=== PATIENT | female | born 1945 | race Caucasian/White ===

== ENCOUNTER 2022-05-17 09:53 | Inpatient (IN) | payer MEDICARE, SELFPAY ==
[2022-05-17] VITALS (42 sets, daily range): BP systolic 101–131; BP diastolic 40–87; PULSE 77–98; RESP 20–31; TEMP 36.2–37.5; O2SAT 88–98; BMI 39.5
--- NOTE | ~2022-05-17 | CT_ITS ---
EXAMINATION: CTA chest PE protocol DATE: 05/17/2022 14:29 INDICATION: elevated D dimer; hypoxia. r/o PE TECHNIQUE: Computed tomography angiography (CTA) of the chest was performed with 100 mL Omnipaque-350 intravenous contrast timed to evaluate the pulmonary arteries. Coronal maximum intensity projection 3D-reconstructions were created by the technologist. The dose-length product (DLP) was 791.57 mGy-cm. Automated exposure control and iterative reconstruction technique were employed. COMPARISON: X-ray chest, same date. FINDINGS: Study quality: Degraded primarily by motion but also by contrast phase and beam hardening such that s egmental emboli could be missed. Pulmonary arteries: No central embolus. Thoracic aorta: Normal. Lung parenchyma and airways: Severely motion limited. Patchy areas of groundglass and dependent subse gmental consolidation. Thoracic inlet, axillae and chest wall: Unremarkable. Mediastinum: Normal. Heart and pericardium: Mild cardiomegaly. Coronary artery calcifications: Mild. Pleura: Unremarkable. Upper abdomen: Steatosis. Bones: No acute osseous finding. IMPRESSION: Severely limited examination, such that segmental emboli could be missed. No central or saddle embolu s. Pulmonary opacities may reflect edema, atelectasis or infection, poorly visualized due to motion. Reviewed, dictated and finalized at location K. IMPRESSION: Severely limited examination, such that segmental emboli could be missed. No ce ntral or saddle embolus. Pulmonary opacities may reflect edema, atelectasis or infection, poorly visualized due to motion.
--- NOTE | ~2022-05-17 | XR_ITS ---
XR chest 1V portable 05/17/2022 10:36 Indication: Cough and hypoxia. Dyspnea. Pneumonia. Procedure: AP portable chest Comparison: 02/09/2011 Findings: Left basilar airspace disease. Cardiomegaly. No significant pleural effusion, edema or pneu mothorax. No acute osseous abnormality. Impression: 1: Left basilar airspace disease may represent atelectasis or developing pneumonia. Reviewed, dictated and finalized at location A. Impression: 1: Left basilar airspace disease may represent atelectasis or developing pneumo archana.
--- NOTE | 2022-05-17 10:26 | ECG_ITS ---
Measurements Intervals [place] Rate: 93 P: 48 HI: 157 QRS: 22 QRSD: 102 T: 49 QT: 354 QTc: 441 Interpretive Statements SINUS RHYTHM POOR R WAVE PROGRESSION, ANTERIOR LEADS MINIMAL Q WAVES- INFERIOR LEADS BORDERLINE T WAVE ABNORMALITY- INFERIOR LEADS BASELINE ARTIFACT- II, III, AVF, V3, V6 BORDERLINE ECG Electronically Signed On 05-17-2022 17:17:53 CDT by Hitesh Pak D.O.
[2022-05-17 10:48] LABS: Base Excess ABG 5.1 mmol/L (0-2); HCO3 ABG 28.6 mmol/L (23-29); Oxygen Content ABG 17.9 %vol (16.0-22.0); Oxygen Saturation ABG 91.8 % (95-97); Oxyhemoglobin 90.6 % (94-100); PCO2 ABG 38.3 mmHg (35-45); PO2 ABG 58.8 mmHg (75-85); Total Hemoglobin 14.1 g/dL (12.0-18.0); pH ABG 7.49 (7.35-7.45)
[2022-05-17] MEDS: SODIUM CHLORIDE 0.9% IV 1,000 ML 999 ML IV CONT (10:49)
[2022-05-17 10:50] LABS: Basophils Absolute Auto 0.04 K/mm3 (0.00-0.10); Basophils Percent Auto 0.3 % (0.0-1.0); Hematocrit 39.8 % (35.0-42.0); Hemoglobin 13.2 g/dL (11.7-13.8); Immature Granulocyte Absolute 0.08 K/mm3 (0.00-0.00); Immature Granulocyte Percent A 0.6 % (0.0-0.0); Lymphocytes Absolute Auto 1.12 K/mm3 (1.10-4.50); Lymphocytes Percent Auto 7.9 % (18.0-42.0); Mean Corpuscular HGB Conc 33.2 g/dL (32.0-36.0); Mean Corpuscular Hemoglobin 30.7 pg (27.0-31.0); Mean Corpuscular Volume 92.6 fL (78.0-102.0); Mean Platelet Volume 10.4 fl (9.2-11.8); Monocytes Absolute Auto 2.01 K/mm3 (0.10-0.90); Monocytes Percent Auto 14.1 % (2.0-11.0); Neutrophils Percent Auto 77.1 % (50.0-70.0); Platelet Count Result 168 K/mm3 (150-420); Red Cell Distribution Width 12.9 % (11.6-14.4); White Blood Count 14.2 K/mm3 (4.8-10.8)
[2022-05-17] MEDS: MAGNESIUM SULF 2 GM/WATER 50ML 2 GM/50 ML BAG IVPB (10:50)
[2022-05-17 10:51] LABS: Device ROOM AIR; Modified Allen's Test Pass; Site Drawn LEFT RADIAL
[2022-05-17] MEDS: ONDANSETRON INJ 4 MG/2 ML VIAL IV PUSH (10:51)
[2022-05-17] MEDS: methylPREDNISolone SOD SUCC 125 MG VIAL IV PUSH (10:51)
[2022-05-17] MEDS: IPRATROPIUM 0.5 MG/ALBUTEROL SULFATE 2.5 MG AMPUL.NEB 3 ML INHALATION (10:52)
--- NOTE | 2022-05-17 11:04 | PC.NURSE ---
ddimer 1.22 reported to erp.
[2022-05-17 11:05] LABS: D Dimer 1.22 mg/L (0.19-0.50)
[2022-05-17 11:10] LABS: Influenza Control Valid (Valid)
[2022-05-17 11:11] LABS: Lactic Acid Reflex 1.2 mmol/L (0.4-2.0)
[2022-05-17 11:13] LABS: Alanine Aminotransferase 47 U/L (14-59); Albumin Level 2.7 g/dL (3.4-5.0); Alkaline Phosphatase 87 U/L (46-116); Anion Gap 7 mmol/L (8-16); Aspartate Amino Transferase 30 U/L (15-37); Bilirubin,Total 1.1 mg/dL (0.00-1.00); Blood Urea Nitrogen 25 mg/dL (7-18); Calcium 8.9 mg/dL (8.5-10.1); Carbon Dioxide 28 mmol/L (21-32); Chloride 94 mmol/L (98-108); Estimated CRCL calculation 35 ml/min; Estimated Glomerular Filt Rate 37; Glucose 163 mg/dL (70-99); NT Pro B Type Natriuretic Pept 373 pg/mL (0-450); Osmolality Calculated 276 mOsm/kg (285-295); Potassium 3.1 mmol/L (3.5-5.1); Sodium 129 mmol/L (136-145); Total Protein 7.9 g/dL (6.4-8.2); Troponin I 12.8 ng/L (0.00-60.4)
[2022-05-17 11:13] LABS: Amylase 36 U/L (25-115); Lipase 126 U/L (73-393)
[2022-05-17 11:22] LABS: CRP > 25.0 mg/dL (0.0-0.9)
--- NOTE | 2022-05-17 11:22 | ED.GENADULT ---
HPI - General Adult General Chief complaint: Weakness Stated complaint: weakness in lower extremities, vomiting History of Present Illness HPI narrative: The patient is a 77-year-old woman smoker, who presents with generalized weakness and intermittent tremors and shaking for the last 4 days associated with nausea and vomiting: no vomiting today but 3 episodes yesterday; nausea present today. Does not feel dizzy or light headed. Also has a cough productive of phlegm that is green which is more than usual for her smoker's cough. No dyspnea. No chest pain. No abdominal pain. No diarrhea. No fevers or chills with diaphoresis or rhinorrhea or nasal congestion. Mild dyspnea present. Walks with a cane. No urinary symptoms. Comorbidities include hypertension hypothyroidism Related Data Home Medications Medication Instructions Recorded Confirmed hydrochlorothiazide 12.5 mg tablet 12.5 mg PO DAILY 05/17/22 05/17/22 levothyroxine 112 mcg tablet 112 mcg PO DAILY 05/17/22 05/17/22 losartan 100 mg tablet 100 mg PO DAILY 05/17/22 05/17/22 metformin 500 mg tablet 500 mg PO BID 05/17/22 05/17/22 Allergies Allergy/AdvReac Type Severity Reaction Status Date / Time Penicillins Allergy Mild Unknown Verified 05/17/22 10:31 Sulfa (Sulfonamide Allergy Mild Unknown Verified 05/17/22 10:31 Antibiotics) Review of Systems Review of Systems: All systems reviewed & are unremarkable except as noted in HPI and below Constitutional: Constitutional: Reports no additional constitutional complaints, Denies anorexia, Reports body ache(s), Denies chills, Denies excessive sweating, Reports fatigue, Denies fever(s), Denies frequent falls, Denies headache(s), Reports malaise and Denies poor appetite Eyes: Eyes: Reports no additional eye complaints, Denies blurry vision, Denies change in vision, Denies irritation, Denies itchy eyes and Denies photophobia ENT: Reports system reviewed and no additional complaints, except as documented, Reports Normal hearing present, Denies change in voice, Denies dysphagia, Denies vertigo, Denies dizziness, Denies ear discharge, Denies headache(s), Denies hearing loss, Denies hoarseness, Denies nasal congestion, Denies neck pain, Denies sinus pressure, Denies sore throat and Denies throat swelling Cardiovascular: Cardiovascular: Reports no additional cardiovascular complaints, Denies chest pain, Denies syncope, Denies rapid heart rate, Denies irregular heart rhythm, Denies leg edema, Denies dyspnea and Denies slow heart rate Respiratory: Respiratory: Reports no additional respiratory complaints, Reports chest congestion, Reports cough (productive of green sputum), Denies dyspnea, Denies stridor and Reports wheezing Gastrointestinal: Gastrointestinal: Reports no additional gastrointestinal complaints, Denies abdominal pain, Denies melena, Denies hematochezia, Denies dysphagia, Denies diarrhea, Reports nausea and Reports vomiting Genitourinary: Genitourinary: Denies hematuria, Denies urinary frequency, Denies dysuria, Denies flank pain and Denies urinary urgency Musculoskeletal: Musculoskeletal: Reports no additional musculoskeletal complaints, Denies abnormal gait, Denies back pain, Denies myalgias, Denies arthralgias, Denies joint swelling, Denies limited range of motion, Denies muscle cramps, Denies muscle weakness, Denies neck pain and Denies numbness Integumentary/Breasts: Skin/Breast: Reports system reviewed and no additional complaints, except as docu, Denies breast pain, Denies change in pigmentation, Denies pruritus, Denies erythema and Denies wounds Neurologic: Reports system reviewed and no additional complaints, except as documented, Reports Normal hearing present, Denies Abnormal speech present, Denies abnormal gait, Denies confusion, Denies vertigo, Denies dizziness, Denies syncope, Denies frequent falls, Denies headache(s), Denies focal weakness, Denies numbness and Denies paresthesias Psychiatric: Psychiatric: Rep
[2022-05-17 11:32] LABS: SARS-CoV-2 RNA PCR Negative (Negative)
[2022-05-17 11:55] LABS: Erythrocyte Sedimentation Rate 44 mm/hr (0-20)
[2022-05-17 17:44] LABS: Glucose Point of Care 286 mg/dl (65-105)
--- NOTE | 2022-05-17 18:00 | ADMGEN ---
This patient, Julisa Rocha, was admitted to 2nd Floor Room 204-2. Patient/family oriented to hospital policies and general routines including ID bracelet, bed and alarms, visiting hours, pain management, procedures, bathroom and other care routines, personal items, smoking policy, room service/diet, and visiting hours. Information on how to activate the Rapid Response Team has been discussed. Patient/Family are encouraged to report perceived risks to care and to ask questions if they do not understand what they are told or what they should do.
[2022-05-17] MEDS: methylPREDNISolone SOD SUCC 125 MG VIAL 60 MG IV PUSH (19:22)
[2022-05-17 21:42] LABS: Glucose Point of Care 217 mg/dl (65-105)
[2022-05-18] VITALS (7 sets, daily range): BP systolic 94–113; BP diastolic 36–52; PULSE 58–75; RESP 16–20; TEMP 35.9–37; O2SAT 91–95
[2022-05-18 05:41] LABS: Anion Gap 9 mmol/L (8-16); Blood Urea Nitrogen 31 mg/dL (7-18); Carbon Dioxide 27 mmol/L (21-32); Chloride 98 mmol/L (98-108); Estimated CRCL calculation 38 ml/min; Estimated Glomerular Filt Rate 39; Glucose 167 mg/dL (70-99); Osmolality Calculated 288 mOsm/kg (285-295); Potassium 3.6 mmol/L (3.5-5.1); Sodium 134 mmol/L (136-145)
[2022-05-18] MEDS: LEVOTHYROXINE SODIUM 112 MCG TABLET PO (06:11)
[2022-05-18] MEDS: methylPREDNISolone SOD SUCC 125 MG VIAL 60 MG IV PUSH ×2 (06:11→18:17)
[2022-05-18] MEDS: BENZONATATE 100 MG CAPSULE PO ×3 (06:12→19:49)
[2022-05-18 08:00] LABS: Glucose Point of Care 131 mg/dl (65-105)
[2022-05-18] MEDS: NICOTINE (*PBKC) 21 MG PATCH 1 PATCH TRANSDERM (08:24)
--- NOTE | 2022-05-18 10:16 | PM.IMHP ---
H&P: HPI History of Present Illness Date/Time: 05/18/22 10:16 Chief Complaint: This is 77-year-old female that presented to the emergency room with weakness and vomiting that is been going on for the past 24 to 48 hours. Patient complains that she was coughing and she vomited while coughing and her legs are so heavy and weak. Patient in the emergency room was found to have some pneumonia was getting IV antibiotics, IV steroids and breathing treatment. Patient was admitted to the floor will be continued IV steroids and antibiotics she remained on 2 L of oxygen which is her home dosage. Patient has continued to improve and is doing a lot better. According to Ms. Rocha she smokes a pack a day as well as she does not check her blood sugars but its maintain with oral medication. Patient denies any nausea and/or vomiting states that she is ready to go home patient has a past medical history of hypertension, diabetes obesity, smoker. At this time we will keep patient another days where she can continue with IV steroids medication for cough IV antibiotics and oxygen she will see physical therapy in the morning to ensure that she is safe for labs are trending down which is showing a lot of improvement. Today potassium is 3.6, sodium 134, chloride 98, BUN 31, creatinine 1.31 which is down from 1.45, WBCs of 14.2, hemoglobin is 13.2 platelets of 168. Review of Systems Review of Systems: Weakness,vomiting, cough All systems reviewed & are unremarkable except as noted in HPI and below PMFSH Family History Family History Sibling Diabetes mellitus Social History Social History Smoking packs per day: 1 Smoking cigarettes per day: 20.0 Smoking status: Heavy tobacco smoker Tobacco type: cigarettes Second hand tobacco smoke exposure: Yes Alcohol intake: never Substance use: never Substance use type: does not use Spiritual care concerns: No Comments At time as signature, I have reviewed and agree with nursing past medical, social, surgical and family history. Please see nursing chart for further information. There is no relevant family history pertinent to the presenting complaint. Meds Home Medications and Allergies Home Medications Medication Instructions Recorded Confirmed Type hydrochlorothiazide 12.5 mg tablet 12.5 mg PO DAILY 05/17/22 05/17/22 History levothyroxine 112 mcg tablet 112 mcg PO DAILY 05/17/22 05/17/22 History losartan 100 mg tablet 100 mg PO DAILY 05/17/22 05/17/22 History metformin 500 mg tablet 500 mg PO BID 05/17/22 05/17/22 History Allergies Allergy/AdvReac Type Severity Reaction Status Date / Time Penicillins Allergy Mild Unknown Verified 05/17/22 10:31 Sulfa (Sulfonamide Allergy Mild Unknown Verified 05/17/22 10:31 Antibiotics) Vital Signs Vital Signs - 24 hr 05/17/22 10:23 05/17/22 10:35 05/17/22 10:55 Temperature 99.5 F Pulse Rate 93 93 98 Respiratory Rate 20 31 H Blood Pressure 131/58 L Pulse Oximetry 92 96 Oxygen Delivery Room Air Oxygen Flow Rate 05/17/22 11:04 05/17/22 11:30 05/17/22 10:35 Temperature Pulse Rate 89 91 93 Respiratory Rate 29 H 20 20 Blood Pressure Pulse Oximetry 97 88 L 90 Oxygen Delivery Nasal Cannula Oxygen Flow Rate 2 05/17/22 10:45 05/17/22 10:50 05/17/22 11:00 Temperature Pulse Rate 93 95 90 Respiratory Rate 20 20 20 Blood Pressure 103/72 Pulse Oximetry 93 95 Oxygen Delivery Oxygen Flow Rate 05/17/22 11:01 05/17/22 11:03 05/17/22 11:15 Temperature Pulse Rate 87 88 91 Respiratory Rate 20 20 20 Blood Pressure 122/63 119/56 L Pulse Oximetry 98 97 89 L Oxygen Delivery Oxygen Flow Rate 05/17/22 11:16 05/17/22 11:30 05/17/22 11:31 Temperature Pulse Rate 91 88 90 Respiratory Rate 20 20 20 Blood Pressure 115/71 127/87 Pulse Oximetry 88 L 88 L 91 Oxygen Delivery
[2022-05-18 11:33] LABS: Glucose Point of Care 225 mg/dl (65-105)
[2022-05-18 12:11] LABS: Add Urine Microscopic? YES; Bilirubin Urine Negative (Negative); Blood Urine 2+ (Negative); Color Urine Yellow (Yellow); Glucose Urine UA Negative (Negative); Ketones Urine Negative (Negative); Leukocyte Esterase Ur 2+ LEU/UL (Negative); Nitrate Urine Negative (Negative); Protein Urine Trace (Negative); Specific Grav Ur 1.015 (1.010-1.020)
[2022-05-18 12:19] LABS: Appearance Urine Cloudy (Clear); Bacteria Urine 2+ /hpf; Squamous Epithelial Cell Urine Few /hpf (Few)
[2022-05-18 16:38] LABS: Glucose Point of Care 175 mg/dl (65-105)
[2022-05-18] MEDS: IPRATROPIUM 0.5 MG/ALBUTEROL SULFATE 2.5 MG AMPUL.NEB 3 ML INHALATION (18:28)
[2022-05-18 21:29] LABS: Glucose Point of Care 189 mg/dl (65-105)
[2022-05-19] MEDS: IPRATROPIUM 0.5 MG/ALBUTEROL SULFATE 2.5 MG AMPUL.NEB 3 ML INHALATION ×2 (00:13→06:22)
[2022-05-19] MEDS: methylPREDNISolone SOD SUCC 125 MG VIAL 60 MG IV PUSH (05:32)
[2022-05-19] MEDS: LEVOTHYROXINE SODIUM 112 MCG TABLET PO (05:32)
[2022-05-19 05:43] LABS: Hematocrit 38.8 % (35.0-42.0); Hemoglobin 12.6 g/dL (11.7-13.8); Mean Corpuscular HGB Conc 32.5 g/dL (32.0-36.0); Mean Corpuscular Hemoglobin 30.5 pg (27.0-31.0); Mean Corpuscular Volume 93.9 fL (78.0-102.0); Mean Platelet Volume 10.6 fl (9.2-11.8); Platelet Count Result 221 K/mm3 (150-420); Red Blood Count 4.13 M/mm3 (4.20-5.40); Red Cell Distribution Width 12.6 % (11.6-14.4); White Blood Count 15.1 K/mm3 (4.8-10.8)
[2022-05-19 05:47] LABS: Anion Gap 5 mmol/L (8-16); Blood Urea Nitrogen 42 mg/dL (7-18); Calcium 8.9 mg/dL (8.5-10.1); Carbon Dioxide 31 mmol/L (21-32); Chloride 99 mmol/L (98-108); Estimated CRCL calculation 41 ml/min; Estimated Glomerular Filt Rate 43; Glucose 174 mg/dL (70-99); Osmolality Calculated 294 mOsm/kg (285-295); Potassium 3.7 mmol/L (3.5-5.1); Sodium 135 mmol/L (136-145)
[2022-05-19 06:23] VITALS: PULSE 60; RESP 16; O2SAT 93
[2022-05-19 06:31] VITALS: PULSE 65; RESP 16
[2022-05-19 08:00] VITALS: BP 102/56; PULSE 76; RESP 16; TEMP 36.2; O2SAT 92
[2022-05-19] MEDS: hydroCHLOROthiazide 12.5 MG CAPSULE PO (08:47)
[2022-05-19] MEDS: LOSARTAN POTASSIUM 50 MG TABLET 100 MG PO (08:47)
--- NOTE | 2022-05-19 09:35 | PM.DS ---
DS: Admitting Diagnosis Discharge Date 05/19/2022 Admitting Diagnosis Pneumonia, Weakness, congestive heart failure DS: Discharge Diagnosis Discharge Diagnosis (1) Acute exacerbation of chronic obstructive pulmonary disease (COPD): Code(s): J44.1 - Chronic obstructive pulmonary disease with (acute) exacerbation Status: Acute Assessment and Plan: continue with oxygen at home nebulizer order take as directed smoking cessation oral steroids as directed (2) Pneumonia of both lower lobes: Code(s): J18.9 - Pneumonia, unspecified organism Status: Acute Assessment and Plan: oral antibiotics avoid smoking (3) Weakness generalized: Code(s): R53.1 - Weakness Status: Acute Assessment and Plan: improved (4) Hypokalemia: Code(s): E87.6 - Hypokalemia Status: Acute Assessment and Plan: resolved (5) Hyponatremia: Code(s): E87.1 - Hypo-osmolality and hyponatremia Status: Acute Assessment and Plan: improving continue to drink fluids DS: Summary Hospital Course Reason for hospitalization: CoPd, Weakness, Nausea, Vomiting Hospital Course: This is a 77 year old female that presented to the emergency room with nausea and vomiting and weakness with COPD Exacerbation. Patient is on 2l of oxygen in which it is her home dosage patient does not have a nebulizer at home although she does smoke on a daily basis. Patient states that she had have coughing spells she was treated here with IV antibiotic, Steroids, continued oxygen and nebulizer treatments . Patient labs continued to improve and she has had less coughing spell possibly due to no smoking for the past 24 hours. Patient has been ordered a nebulizer for home and instruction giving on smoking cessation patient states she will try although she is not sure that she will be able to quit. Cough mediation has been ordered for home as well. Appointment has been made for her PCP where she will follow up Time Spent with Patient Time attestation: Total time spent providing and/or coordinating discharge services: Exam Narrative: GENERAL:Well-appearing, well-nourished, and in no acute distress. HEAD:Normocephalic, atraumatic. EYES: PERRLA and EOMI. ENT: Nares clear, no rhinorrhea or epistaxis. Mucous membranes moist. NECK: Supple. CHEST: Coarse with scattered wheezes to diminished in lower lobes auscultation. No respiratory distress. HEART: Regular rate and rhythm. Normal peripheral pulses. ABDOMEN: Soft, nontender, nondistended, normal active bowel sounds. EXTREMITIES: Normal range of motion. No edema. Peripheral vascular disease SKIN: Warm, dry, no rash. NEURO: No focal deficits. Alert and oriented x3. DS: Data Data Completed and Pending Labs on day of discharge: Labs from last 24 hours 05/19/22 05/19/22 05/18/22 05:30 05:30 21:23 WBC 15.1 H RBC 4.13 L Hgb 12.6 Hct 38.8 MCV 93.9 MCH 30.5 MCHC 32.5 RDW 12.6 Plt Count 221 MPV 10.6 Sodium 135 L Potassium 3.7 Chloride 99 Carbon Dioxide 31 Anion Gap 5 L BUN 42 H Creatinine 1.22 H Estim Creat Clear Calc 41 Estimated GFR 43 L Glucose 174 H POC Capillary Glucose 189 H Calculated Osmolality 294 Calcium 8.9 Urine Color Urine Appearance Urine pH Ur Specific [place] Urine Protein Urine Glucose (UA) Urine Ketones Ur Blood (Man) Urine Nitrate Urine Bilirubin Urine Urobilinogen Leukocyte Esterase Rfl Urine RBC Urine WBC Ur Squamous Epith Cells Urine Bacteria Granular Casts 05/18/22 05/18/22 05/17/22 16:35 11:28 10:27 WBC RBC Hgb Hct MCV MCH MCHC RDW Plt Count MPV Sodium Potassium Chloride Carbon Dioxide Anion Gap BUN Creatinine Estim Creat Clear Calc Estimated GFR Glucose POC Capillary Glucose 175 H 225
[2022-05-19] MEDS: BENZONATATE 100 MG CAPSULE PO (10:16)
--- NOTE | 2022-05-19 10:21 | PC.NURSE ---
Discharge instructions given to daughter and patient. Reminded that if Medicare does not cover cost of neb machine they are available at [facility] . darlene ochoal given.
--- NOTE | 2022-05-19 11:12 | PC.NURSE ---
Patient taken to private car via wheelchair. discharge instructions given.
[2022-05-19 11:44] LABS: Glucose Point of Care 165 mg/dl (65-105)
--- NOTE | 2022-05-22 10:26 | PC.NURSE ---
Unable to contact for discharge call back.
== END 2022-05-19 10:50 | disposition home or self-care (01) | DRG 190 ==
LOC: CHSED 16:25 → CHS2ND 16:47
PROVIDERS: Nurse Practitioner Family; Admitting Provider Internal Medicine; Emergency Provider Emergency Medicine; PCP Family Medicine; Visit Provider Internal Medicine
DX: J44.0 Chronic obstructive pulmonary disease with (acute) lower respiratory infection (principal); J18.9 Pneumonia, unspecified organism; E87.1 Hypo-osmolality and hyponatremia; Z20.822 Contact with and (suspected) exposure to COVID-19; J44.1 Chronic obstructive pulmonary disease with (acute) exacerbation; E87.6 Hypokalemia; I10 Essential (primary) hypertension; E11.9 Type 2 diabetes mellitus without complications; F17.210 Nicotine dependence, cigarettes, uncomplicated; Z99.81 Dependence on supplemental oxygen; E03.9 Hypothyroidism, unspecified
CPT/HCPCS: 36415; 36600; 71045; 71275; 80048; 80053; 81001; 82150; 82805; 82948; 83605; 83690; 83880; 84484; 85025; 85027; 85380; 85652; 86140; 87040; 87086; 87804; 93005; 94640; 96361; 96365; 96367; 96368; 96375; 99285; A9270; C9803; J0456; J0696; J1815; J2405; J2930; J3475; J7030; Q9967; U0003; U0005

== ENCOUNTER 2025-01-03 08:50 | Emergency (ER) | payer MEDICARE, SELFPAY ==
--- NOTE | ~2025-01-03 | XR_ITS ---
EXAMINATION: XR chest 1V portable DATE: 01/03/2025 09:33 INDICATION: Hypoxia. TECHNIQUE: A single frontal view of the chest was obtained. COMPARISON: Chest single view 05/17/2022, chest CT 05/17/2022 FINDINGS: Sensitivity is decreased by obesity. There are airspace opacities at left lung base. No ple ural effusion or pneumothorax. The heart size is normal. There are prominent pericardial fat pads. IMPRESSION: 1. Airspace opacities at left lung base, consistent with atelectasis versus pneumonia. Reviewed, dictated and finalized at location B. IMPRESSION: 1. Airspace opacities at left lung base, consistent with atelectasis versus pne umonia.
[2025-01-03 08:50] VITALS: BP 120/53; PULSE 75; RESP 22; TEMP 39.1; O2SAT 94; O2SAT 97
--- NOTE | 2025-01-03 09:03 | ED_ITS ---
HPI - General Adult General Chief complaint: Altered Mental Status Stated complaint: SICK CASE Time Seen by Provider: 01/03/25 09:03 Source: family and EMS Mode of arrival: EMS Limitations: altered mental status History of Present Illness HPI narrative: 79 years old white female came from home by ambulance with decreased level of consciousness started last night Associated with nausea. Patient report cold- like symptoms over the last 3 days. She denies any trauma. History of diabetes, hypertension, tobacco dependent. Patient lot on anti-platelet or anticoagulant medications. Does not take oxygen at home. Patient is full code. Related Data Home Medications ?Medication ?Instructions ?Recorded ?Confirmed ?Last Taken ?Type hydrochlorothiazide 12.5 mg tablet 12.5 mg PO DAILY 05/17/22 05/17/22 Unknown History levothyroxine 112 mcg tablet 112 mcg PO DAILY 05/17/22 05/17/22 Unknown History losartan 100 mg tablet 100 mg PO DAILY 05/17/22 05/17/22 Unknown History metformin 500 mg tablet 500 mg PO BID 05/17/22 05/17/22 Unknown History Allergies Allergy/AdvReac Type Severity Reaction Status Date / Time Penicillins Allergy Mild Unknown Verified 01/03/25 09:34 Sulfa (Sulfonamide Allergy Mild Unknown Verified 01/03/25 09:34 Antibiotics) Review of Systems 2 Review of Systems: ROS unobtainable: Yes unobtainable due to medical condition PMFSH Family History Family History Sibling Diabetes mellitus Social History Social History Smoking packs per day: 1 Smoking cigarettes per day: 20.0 Smoking status: Heavy tobacco smoker Tobacco type: cigarettes Second hand tobacco smoke exposure: Yes Alcohol intake: never Substance use: never Substance use type: does not use Spiritual care concerns: No Exam 2 Narrative: General appearance: Well-developed, well-nourished , responsible to touch Skin: pale Head: Normocephalic, nontraumatic Eyes: Clear conjunctiva ENT: abdoulaye pharyngeal erythema Neck: Supple, nontender Chest and respiratory: Airway patent, diminution of air entry bilaterally, patient does not take deep breath, difficult to evaluate breath sounds Heart: Regular rate/rhythm Abdomen: Soft, nontender, no organomegaly, quiet bowel sounds Neurologic: Alert and oriented her name and age only Course Consultations Consultation #1: DR PANIAGUA WHO ACCEPTED PATIENT TRANSFER Date: 01/03/25 Vital Signs Vital signs: Vital Signs Temperature 39.1 C H 01/03/25 08:50 Pulse Rate 75 01/03/25 08:50 Respiratory Rate 22 H 01/03/25 08:50 Blood Pressure 120/53 L 01/03/25 08:50 Pulse Oximetry 94 01/03/25 08:50 Oxygen Delivery Non-Rebreather Mask 01/03/25 08:50 Oxygen Flow Rate 15 01/03/25 08:50 Temperature 37.7 C H 01/03/25 09:40 Pulse Rate 73 01/03/25 09:40 Respiratory Rate 20 01/03/25 09:40 Blood Pressure 130/62 01/03/25 09:40 Pulse Oximetry 95 01/03/25 09:40 Oxygen Delivery Non-Rebreather Mask 01/03/25 09:40 Oxygen Flow Rate 15 01/03/25 09:40 Medical Decision Making MDM Narrative Medical decision making narrative: patient came to the ED with shortness of breath, hypoxic, 95% on 100% non- rebreather , responsive to touch Differential diagnosis and include sepsis with normal blood pressure, pneumonia, respiratory viral infection, less likely pulmonary embolism. Labs include CBC, CMP, lactic acid, CRP, blood culture, PT PTT And D-dimer ordered Respiratory panel for COVID, flu and RSV ordered Chest x-ray ordered CT head without contrast ordered patient had normal saline wide open time 1 L, 15 mg of Toradol IV, One set of blood culture was obtained Unable to start antibiotic right away, chest x-ray showed atelectasis versus pneumonia left lung base Differential Diagnosis Differential Diagnosis: as above Vital Signs Vital Signs: Vital Signs Temperature 39.1 C H 01/03/25 08:50 Pulse Rate 75 01/03/25 08:50 Respiratory Rate 22 H 01/03/25 08:50 Blood Pressure 120/53 L 01/03/25 08:50 Pulse Oximetry 94 01/03/25 08:50 Oxygen Delivery Non-Rebreather Mask 01/03/25 08:50 Oxygen Flow Rate 15 01/03/25 08:50 Temperature 37.7 C H 01/03/25 09:40 Pulse Rate 73 01/03/25 09:40 Respiratory Rate 20 01/03/25 09:40 Blood Pressure 130/62 03/11/25 09:40 Pulse Oximetry 95 01/03/25 09:40 Oxygen Delivery Non-Rebreather Mask 01/03/25 09:40 Oxygen Flow Rate 15 01/03/25 09:40 Lab Data 01/03/25 09:42 01/03/25 09:42 Labs: Lab Results 01/03/25 01/03/25 Range/Units 09:42 09:43 WBC 6.9 (4.8-10.8) K/mm3 RBC 4.24 (4.20-5.40) M/mm3 Hgb 13.2 (11.7-13.8) g/dL Hct 43.0 H (35.0-42.0) % MCV 101.4 (78.0-102.0) fL MCH 31.1 H (27.0-31.0) pg MCHC 30.7 L (32-36) g/dL RDW 13.9 (11.6-14.4) % Plt Count 130 L (150-420) K/mm3 MPV 10.0 (9.2-11.8) fl Immature Gran % (Auto) Not Reportable Neut % (Auto) Not Reportable Lymph % (Auto) Not Reportable Jay % (Auto) Not Reportable Eos % (Auto) Not Reportable Baso % (Auto) Not Reportable Lymph # (Auto) Not Reportable Jay # (Auto) Not Reportable Eos # (Auto) Not Reportable Baso # (Auto) Not Reportable Abs Immat Gran (auto) Not Reportable Absolute Neuts (auto) Not Reportable Absolute Nucleated RBC Not Reportable Total Counted 100 Neutrophils % (Manual) 79 H (46-73) % Band Neutrophils % 14 H (0-6) % Lymphocytes % (Manual) 5 L (18-44) % Monocytes % (Manual) 2 L (3-9) % Eosinophils % (Manual) 0 L (1-6) % Basophils % (Manual) 0 (0-1) % Nucleated RBC % Not Reportable Abs Neuts (Manual) 6.41 (1.7-7.2) K/mm3 Abs Lymphs (Manual) 0.34 L (1.1-4.5) K/mm3 Abs Monocytes (Manual) 0.13 (0.1-0.90) K/mm3 Absolute Eos (Manual) 0.00 L (0.02-0.50) K/mm3 Abs Basophils (Manual) 0.00 (0-0.1) K/mm3 Platelet Estimate Adequate (Adequate) % Immature Plt Fraction 1.4 (1.0-7.0) % Schistocytes Not Reportable PT 13.6 H (9.50-12.1) Seconds INR 1.3 APTT 27.3 (23.9-30.70) Sec D-Dimer 1.31 H* (0.19-0.50) mg/L Sodium 135 L (136-145) mmol/L Potassium 3.7 (3.5-5.1) mmol/L Chloride 97 L (98-108) mmol/L Carbon Dioxide 31 (21-32) mmol/L Anion Gap 7 (4-12) mmol/L BUN 18 (7-18) mg/dL Creatinine 1.04 H (0.55-1.02) mg/dL Estim Creat Clear Calc Not Reportable Estimated GFR 51 L (59 - ) Glucose 193 H (70-99) mg/dL Calculated Osmolality 286 (285-295) mOsm/kg Lactic Acid Pending Calcium 8.8 (8.5-10.1) mg/dL Total Bilirubin 0.7 (0.00-1.00) mg/dL AST 33 (15-37) U/L ALT 21 (14-59) U/L Alkaline Phosphatase 74 (46-116) U/L Troponin I 4.9 (0.00-60.4) ng/L C-Reactive Protein 5.2 H (0.0-0.9) mg/dL Total Protein 8.8 H (6.4-8.2) g/dL Albumin 3.2 L (3.4-5.0) g/dL Influenza A (RT-PCR) Pending Influenza B (RT-PCR) Pending RSV (RT-PCR) Pending SARS-CoV-2 RNA (RT-PCR) Pending ABG Data ABG results: 01/03/25 09:42 Puncture Site Left radial ABG pH 7.29 L ABG pCO2 73.3 H* ABG pO2 85.5 H ABG HCO3 34.2 H ABG O2 Saturation 94.5 L ABG Base Excess 5.2 H Oxyhemoglobin 92.4 L O2 Delivery Device Non-rebreather mask O2 Liters/Min 15.0 Discharge Plan Discharge Clinical Impression: Acute hypoxic respiratory failure, Decreased responsiveness Patient Disposition: Acute Care Hospital Condition: Guarded Prognosis Additional Instructions: TRANSFER TO [facility] Patient Language: Romansh Prescriptions: No Action metformin 500 mg tablet 500 mg PO BID losartan 100 mg tablet 100 mg PO DAILY levothyroxine 112 mcg tablet 112 mcg PO DAILY hydrochlorothiazide 12.5 mg tablet 12.5 mg PO DAILY ipratropium-albuterol 0.5 mg-3 mg(2.5 mg base)/3 mL Solution For Nebulization 3 ml inhalation Q6HRT PRN (Reason: Shortness Of Breath Or Wheezing) Qty: 180 0RF Rx Instructions: J44.9 benzonatate 100 mg Capsule 100 mg PO TID PRN (Reason: cough) Qty: 30 0RF (DME) nebulizer and compressor Device See Rx Instructions .Route Qty: 1 0RF Rx Instructions: As directed methylprednisolone [Medrol (Chente)] 4 mg tablets,dose pack See Rx Instructions .ROUTE .COMPLEX Qty: 21 0RF Rx Instructions: orally per package directions Follow-up/Referrals: UNKNOWN,DOCTOR [Non-Staff] -
--- NOTE | 2025-01-03 09:05 | ECG_ITS ---
Test Date: 2025-01-03 09:22:01 Measurements Intervals [place] Rate: 79 P: 62 MN: 180 QRS: 32 QRSD: 113 T: 109 QT: 391 QTc: 449 Interpretive Statements SINUS RHYTHM WITH SINUS ARRHYTHMIA LOW QRS VOLTAGE IN EXTREMITY LEADS [QRS DEFLECTION < 0.5 mV IN LIMB LEADS] MODERATE INTRAVENTRICULAR CONDUCTION DELAY [110+ ms QRS DURATION] No previous ECG available for comparison Electronically Signed On 01-03-2025 14:28:22 CDT by Emma Hallman M.D.
[2025-01-03 09:15] VITALS: BP 114/51; PULSE 77; RESP 20; O2SAT 96
[2025-01-03] MEDS: KETOROLAC 15 MG/ML VIAL (*BKC) IV PUSH (09:22)
[2025-01-03] MEDS: SODIUM CHLORIDE 0.9% IV 1,000 ML 999 ML IV CONT (09:22)
[2025-01-03 09:30] VITALS: BP 118/49; PULSE 81; RESP 20; O2SAT 97
[2025-01-03 09:40] VITALS: BP 130/62; PULSE 73; RESP 20; TEMP 37.7; O2SAT 95
[2025-01-03 09:47] LABS: Base Excess ABG 5.2 mmol/L (0-2); HCO3 ABG 34.2 mmol/L (23-29); Oxygen Saturation ABG 94.5 % (95-97); Oxyhemoglobin 92.4 % (94-100); PO2 ABG 85.5 mmHg (75-85); pH ABG 7.29 (7.35-7.45)
[2025-01-03 09:50] LABS: Device NON-REBREATHER MASK; Modified Allen's Test Pass; PCO2 ABG 73.3 mmHg (35-45); Site Drawn LEFT RADIAL
[2025-01-03 09:52] LABS: Hemoglobin 13.2 g/dL (11.7-13.8); Immature Platelet Fraction Pct 1.4 % (1.0-7.0); Mean Corpuscular HGB Conc 30.7 g/dL (32-36); Mean Corpuscular Hemoglobin 31.1 pg (27.0-31.0); Mean Corpuscular Volume 101.4 fL (78.0-102.0); Platelet Count Result 130 K/mm3 (150-420); Red Blood Count 4.24 M/mm3 (4.20-5.40); Red Cell Distribution Width 13.9 % (11.6-14.4); White Blood Count 6.9 K/mm3 (4.8-10.8)
[2025-01-03 10:04] LABS: INR 1.3; Partial Thromboplastin Time 27.3 Sec (23.9-30.70); Prothrombin Time 13.6 Seconds (9.50-12.1)
[2025-01-03 10:06] LABS: D Dimer 1.31 mg/L (0.19-0.50)
[2025-01-03 10:13] LABS: Alanine Aminotransferase 21 U/L (14-59); Albumin Level 3.2 g/dL (3.4-5.0); Alkaline Phosphatase 74 U/L (46-116); Anion Gap 7 mmol/L (4-12); Aspartate Amino Transferase 33 U/L (15-37); Bilirubin,Total 0.7 mg/dL (0.00-1.00); Blood Urea Nitrogen 18 mg/dL (7-18); CRP 5.2 mg/dL (0.0-0.9); Calcium 8.8 mg/dL (8.5-10.1); Carbon Dioxide 31 mmol/L (21-32); Chloride 97 mmol/L (98-108); Estimated Glomerular Filt Rate 51; Glucose 193 mg/dL (70-99); Osmolality Calculated 286 mOsm/kg (285-295); Potassium 3.7 mmol/L (3.5-5.1); Sodium 135 mmol/L (136-145); Total Protein 8.8 g/dL (6.4-8.2); Troponin I 4.9 ng/L (0.00-60.4)
[2025-01-03 10:14] LABS: Band Neutrophils Percent 14 % (0-6); Basophils Percent Manual 0 % (0-1); Eosinophils Percent Manual 0 % (1-6); Lymphocytes Absolute Manual 0.34 K/mm3 (1.1-4.5); Lymphocytes Percent Manual 5 % (18-44); Monocytes Absolute Manual 0.13 K/mm3 (0.1-0.90); Monocytes Percent Manual 2 % (3-9); Neutrophils Absolute Manual 6.41 K/mm3 (1.7-7.2); Neutrophils Percent Manual 79 % (46-73); Platelet Estimate Adequate (Adequate); Total Cells Counted 100
[2025-01-03 10:26] LABS: Lactic Acid Reflex 1.8 mmol/L (0.4-2.0)
[2025-01-03 10:28] LABS: Influenza A QL RT-PCR Positive (Negative); Influenza B QL RT-PCR Negative (Negative); RSV RNA, RT-PCR Negative (Negative); SARS-CoV-2 RNA PCR Negative (Negative)
--- NOTE | 2025-01-04 13:46 | PC.NURSE ---
PRELIMINARY BLOOD CULTURE RESULTS X2: NO GROWTH TO DATE.
== END 2025-01-03 09:40 | disposition short-term general hospital (02) ==
PROVIDERS: Emergency Provider Emergency Medicine; PCP Family Medicine
DX: J96.01 Acute respiratory failure with hypoxia (principal); R41.82 Altered mental status, unspecified; E11.9 Type 2 diabetes mellitus without complications; I10 Essential (primary) hypertension; F17.210 Nicotine dependence, cigarettes, uncomplicated; Z79.01 Long term (current) use of anticoagulants; Z99.81 Dependence on supplemental oxygen; Z20.822 Contact with and (suspected) exposure to COVID-19
CPT/HCPCS: 36415; 36600; 71045; 80053; 82805; 83605; 84484; 85025; 85055; 85380; 85610; 85730; 86140; 87040; 87637; 93005; 96361; 96374; 99285; J1885; J7030

== ENCOUNTER 2025-01-03 10:19 | Inpatient (IN) | payer MEDICARE, SELFPAY ==
[2025-01-03] VITALS (70 sets, daily range): BP systolic 76–135; BP diastolic 37–64; PULSE 50–90; RESP 10–28; TEMP 36.6–37.4; O2SAT 88–100; BMI 41.0
--- NOTE | ~2025-01-03 | XR_ITS ---
Portable chest x-ray Comparison: 01/06/2025 Clinical History: Respiratory failure Findings: Left subclavian line unchanged. Small left pleural effusion present with probable partial left lower lobe atelectasis. There is probable mild pulmonary edema pattern bilaterally. Cardiomedia stinal silhouette is stable. Bones and soft tissues are unremarkable. Impression: Small left pleural effusion with mild pulmonary edema and probable element of left lower lobe atelect asis. Possible underlying COPD/chronic interstitial disease. Stable support line. Reviewed, dictated and finalized at location M. Impression: Small left pleural effusion with mild pulmonary edema and probable element of l eft lower lobe atelectasis. Possible underlying COPD/chronic interstitial disease. Stable support line.
--- NOTE | ~2025-01-03 | CT_ITS ---
History: Altered mental status PROCEDURE: CT head without contrast. COMPARISON: 02/09/2011 TECHNIQUE: Axial imaging of the head performed from the skull base to the vertex without IV contrast. Sagittal a nd coronal reformations obtained. DLP: 681 mGy-cm FINDINGS: The ventricles are dilated. The dilatation of the ventricles is proportional to the degree of sulcal prominence, not uncommon in the senescent brain. Decreased attenuation is identified within the periventricular white matter, likely secondary to micr ovascular ischemic disease, in a patient of this age. There is no mass, mass effect or midline shift. There is no abnormal extra-axial fluid collection or intracranial hemorrhage. Visualized paranasal sinuses are clear. The mastoid air cells are well aerated. No acute displaced fractures within the overlying cranium. Impression: No acute intracranial hemorrhage or suspicious mass effect. Reviewed, dictated and finalized at location A. Impression: No acute intracranial hemorrhage or suspicious mass effect.
--- NOTE | ~2025-01-03 | CT_ITS ---
CTA chest PE protocol Ordering provider: Suresh Self MD History: 79 years Female with . Respiratory failure, Elevated dimer . Comparison: None. Technique: CT angiogram chest was performed following timed intravenous injection of contrast. Thin s lice axial images and reformatted coronal images were obtained. Three dimensional reformatted images of the chest were also obtained using a [employer] workstation. . Automated exposure control and iterati ve reconstruction technique were employed. The dose-length product was 740.68 mGy-cm. 100 mL Omnipaqu e 350 was given IV. Findings: PULMONARY ARTERIES: No pulmonary embolus. VISUALIZED THORACIC INLET: Normal. MEDIASTINUM: Aorta/coronary arteries: Mild atheromatous disease. Heart/other: The heart is not enlarged. Lymph nodes: Precarinal lymph node is seen measuring 1.7 cm. Paratracheal lymph nodes are also seen. Prevascular lymph nodes are seen with the largest measuring 1.5 cm. No hilar adenopathy. LUNGS: Bilateral basal pneumonia more on the left side. Atelectasis versus pneumonia in the right upper lobe . No pulmonary nodules or masses. No effusions. No pneumothorax. VISUALIZED UPPER ABDOMEN: Small sliding hiatus hernia. Otherwise, the visualized upper abdomen is nor mal. MUSCULOSKELETAL: Soft tissues: The superficial soft tissues are normal. Bones: Age appropriate degenerative changes of the spine. IMPRESSION: 1. Bibasilar pneumonia. Pneumonia in the right upper lobe. 2. No pulmonary embolism. Reviewed, dictated and finalized at location A.
--- NOTE | ~2025-01-03 | XR_ITS ---
EXAMINATION: XR chest 1V portable DATE: 01/04/2025 11:13 INDICATION: Congestive heart failure. TECHNIQUE: A single frontal view of the chest was obtained. COMPARISON: Chest single view 01/03/2025, chest CT 01/03/2025 FINDINGS: There are airspace opacities in the lower lung zones. No pleural effusion or pneumothorax. The heart size is normal. A left subclavian central venous catheter is seen with tip at the superior cavoatrial junction. IMPRESSION: 1. Airspace opacities in the lower lung zones with improvement on the right, consistent with atelecta sis versus pneumonia. Reviewed, dictated and finalized at location B. IMPRESSION: 1. Airspace opacities in the lower lung zones with improvement on the right, co nsistent with atelectasis versus pneumonia.
--- NOTE | ~2025-01-03 | XR_ITS ---
Portable chest x-ray Comparison: 01/04/2025 Clinical History: Respiratory failure Findings: Left-sided subclavian line is in satisfactory position. There is patchy left basilar airsp shea disease. Possible underlying COPD or chronic interstitial change. Cardiomediastinal silhouette i s stable. Bones and soft tissues are unremarkable. Impression: Patchy left basilar airspace disease is suspicious for pneumonia. Suspected COPD or chronic interstitial change. Support line, as above. Reviewed, dictated and finalized at location . Impression: Patchy left basilar airspace disease is suspicious for pneumonia. Suspected COPD or chronic interstitial change. Support line, as above.
--- NOTE | ~2025-01-03 | XR_ITS ---
Portable chest x-ray Comparison: 01/05/2025 Clinical History: Respiratory failure Findings: Left subclavian line remains in place. Small bilateral pleural effusions are present with probable mild pulmonary edema. Cardiomediastinal silhouette is stable. Bones and soft tissues are un remarkable. Impression: Small pleural effusions with probable mild pulmonary edema pattern. Stable support line. Reviewed, dictated and finalized at location . Impression: Small pleural effusions with probable mild pulmonary edema pattern. Stable support line.
--- NOTE | ~2025-01-03 | XR_ITS ---
XR chest 1V portable Ordering provider: Kennedy Disla MD History: 79 years Female with . Resp Failure . Comparison: January 07, 2025 FINDINGS: MEDIASTINUM: The cardiac silhouette is slightly enlarged. Left central line with the tip overlying th e superior vena cava. Congestive va. LUNGS: No pneumothorax. Opacification the lung bases seen more on the left side suggestive of atelect asis versus pneumonia with left pleural effusion. Bilateral interstitial thickening suggestive of pul monary edema versus pneumonitis. OTHER: No free air under the diaphragm. IMPRESSION: Bilateral basal pneumonia more on the left side with pleural effusion. Bilateral interstitial thicken ing suggestive of pneumonitis versus pulmonary edema. Reviewed, dictated and finalized at location A. IMPRESSION: Bilateral basal pneumonia more on the left side with pleural effusion. Bilatera l interstitial thickening suggestive of pneumonitis versus pulmonary edema.
--- NOTE | ~2025-01-03 | XR_ITS ---
XR chest port-a-cath/central Ordering provider: Suresh Self MD History: 79 years Female with . LINE PLACEMENT CENTRAL LINE. . Comparison: January 03, 2025 FINDINGS: MEDIASTINUM: The cardiac silhouette is slightly enlarged. Left central line with the tip overlying th e superior vena cava. Congestive va. LUNGS: No effusions or pneumothorax. Opacification in the left lung base suggestive of atelectasis ve rsus pneumonia. Bilateral interstitial thickening. OTHER: No free air under the diaphragm. Degenerative changes of the spine. IMPRESSION: Cardiomegaly. Interstitial thickening suggestive of pulmonary edema versus pneumonitis. Left basilar atelectasis versus pneumonia. Reviewed, dictated and finalized at location A. IMPRESSION: Cardiomegaly. Interstitial thickening suggestive of pulmonary edema versus pneu monitis. Left basilar atelectasis versus pneumonia.
--- NOTE | ~2025-01-03 | XR_ITS ---
Portable chest x-ray Comparison: 01/08/2025 Clinical History: Respiratory failure Findings: Left subclavian line is unchanged. There is discoid bibasilar atelectasis or scarring. Ca rdiomediastinal silhouette is stable. Bones and soft tissues are unremarkable. Impression: Discoid bibasilar atelectasis or scarring. Stable support line. Reviewed, dictated and finalized at location . Impression: Discoid bibasilar atelectasis or scarring. Stable support line.
[2025-01-03] MEDS: IPRATROPIUM 0.5 MG/ALBUTEROL SULFATE 2.5 MG AMPUL.NEB 3 ML 12 ML INHALATION (11:04)
[2025-01-03] MEDS: SODIUM CHLORIDE 0.9% IV 1,000 ML 999 ML IV CONT ×3 (11:20→11:39)
--- NOTE | 2025-01-03 11:23 | ED.GENADULT ---
HPI - General Adult General Chief complaint: Shortness of Breath/Dyspnea Stated complaint: Shortness of breath History of Present Illness HPI narrative: This is a 79-year-old female transfer from [facility] for fevers and altered mental status. Patient has had cold symptoms for the last 3-4 days. Last night she started become lethargic and confused. Family brought her to [facility] earlier this morning. [facility] transfer to our hospital as the not have CT scan available. Patient is lethargic but arousable. She cannot provide much meaningful history on interview. Related Data Home Medications ?Medication ?Instructions ?Recorded ?Confirmed ?Last Taken ?Type hydrochlorothiazide 12.5 mg tablet 12.5 mg PO DAILY 05/17/22 05/17/22 Unknown History levothyroxine 112 mcg tablet 112 mcg PO DAILY 05/17/22 05/17/22 Unknown History losartan 100 mg tablet 100 mg PO DAILY 05/17/22 05/17/22 Unknown History metformin 500 mg tablet 500 mg PO BID 05/17/22 05/17/22 Unknown History Allergies Allergy/AdvReac Type Severity Reaction Status Date / Time Penicillins Allergy Mild Unknown Verified 01/03/25 09:34 Sulfa (Sulfonamide Allergy Mild Unknown Verified 01/03/25 09:34 Antibiotics) [facility] Family History Family History Sibling Diabetes mellitus Social History Social History Smoking packs per day: 1 Smoking cigarettes per day: 20.0 Smoking status: Heavy tobacco smoker Tobacco type: cigarettes Second hand tobacco smoke exposure: Yes Alcohol intake: never Substance use: never Substance use type: does not use Spiritual care concerns: No Exam Narrative: APPEARANCE: Lethargic, arousable to verbal stimuli Head: atraumatic. EYES: EOMI, NOSE: Atraumatic NECK: Trachea midline RESPIRATORY: Scattered wheezing and rhonchi CARDIOVASCULAR: No peripheral edema ABDOMINAL: Obese, nontender MUSCULOSKELETAl: No obvious deformities NEURO: Lethargic Moving 4/4 extremities to command SKIN:: Warm, dry. Normal color PSYCHIATRIC: lethargic Course Vital Signs Vital signs: Vital Signs Pulse Rate 80 01/03/25 10:26 Respiratory Rate 28 H 01/03/25 10:26 Pulse Oximetry 96 01/03/25 10:26 Oxygen Delivery BiPAP 01/03/25 10:26 Temperature 98.6 F 01/03/25 15:00 Pulse Rate 60 01/03/25 15:27 Respiratory Rate 25 H 01/03/25 15:00 Blood Pressure 106/39 L 01/03/25 15:27 Pulse Oximetry 99 01/03/25 15:00 Oxygen Delivery BiPAP 01/03/25 13:38 Procedures Arterial Line Arterial line #1: Date of Arterial Line: 01/03/25 Discussed with the patient/family/POA, the placement of an arterial catheter, including its clinical necessity/indication and associated potential risks, benefits and alternatives.: Yes Patient/family/POA and/or understands and acknowledges the need to proceed with the arterial catheter insertion as an important element of the patient's clinical management.: Yes Time Out Performed: Yes Size (Gauge): 20 Technique Used: guide wire technique Post-Procedure: line sutured into place and dry sterile dressing placed Patient Tolerated Procedure: well Complications: none Central Line Placement Left SC: Central Line Date: 01/03/25 Discussed w/ the patient/family/POA,the placement of a central venous catheter, including its clinical necessity/indication & associated potential risks, benifits and alternatives.: Yes The patient/family/POA understand(s) and acknowledge(s) the need to proceed with central venous catheter insertion as an important element of the patient's clinical management.: Yes Patient Placed on Monitor/Pulse Ox: Yes Max. Sterile Barrier Technique: Caps and large sterile sheet Central Line Prep: 2% chlorhexidine scrub and sterile drapes applied Technique: seldinger Local Anesthetic: lidocaine 1% Amount of anesthesia used (mL): 5 Ultrasound Used for Placement: No Central Line Lumen Inserted: triple Post Procedure: sutured in place, good blood return, all ports aspirated, flushed, capped and sterile dressing applied Post Procedure X-Ray: tip of catheter in good position and no pneumothorax seen Patient Tolerated Procedure: well Complications: none Medical Decision Making MDM Narrative Medical decision making narrative: -Course: 79-year-old female presenting with 3 days of flu-like symptoms, altered mental status and lethargy. Broad workup obtained. On arrival patient was hypoxic. She is requiring 15 L non-rebreather which point her saturation at 94%. ABG obtained which showed both hypercapnic and hypoxic respiratory failure. We trialed patient BiPAP with close monitoring given her poor mental status. Mental status improved with BiPAP. ABGs trending in the correct direction. Patient's body habitus was not conducive to automated blood pressure cuff readings. Cannot get reproducible or reliable results. An arterial line was placed which show the patient was hypotensive. She received a 30 cc/kilogram bolus and was still hypotensive. Left subclavian central line was placed she was started norepinephrine with improvement blood pressure. Sepsis workup was obtained which was positive for influenza A. CT PE negative for PE but showed multi lobar pneumonia. Urine was also indicative infection. Patient started on Tamiflu, cefepime doxycycline and vancomycin. Case was discussed with Veronika and Dr. Disla -Co-morbidities complicating care: Hypertension diabetes obesity tobacco user COPD Vital Signs Vital Signs: Vital Signs Pulse Rate 80 01/03/25 10:26 Respiratory Rate 28 H 01/03/25 10:26 Pulse Oximetry 96 01/03/25 10:26 Oxygen Delivery BiPAP 01/03/25 10:26 Temperature 98.6 F 01/03/25 15:00 Pulse Rate 60 01/03/25 15:27 Respiratory Rate 25 H 01/03/25 15:00 Blood Pressure 106/39 L 01/03/25 15:27 Pulse Oximetry 99 01/03/25 15:00 Oxygen Delivery BiPAP 01/03/25 13:38 Lab Data Labs: Lab Results 01/03/25 01/03/25 01/03/25 Range/Units 11:31 12:10 14:37 Expiratory Pressure 7 CMH2O Inspiratory Pressure 14 CMH2O Urine Color Yellow (Yellow) Urine Appearance Cloudy H (Clear) Urine pH 6.0 (5.0-9.0) Ur Specific [place] > 1.045 H (1.001-1.035) Urine Protein 2+ H (Negative) mg/dL Urine Glucose (UA) Negative (Negative) mg/dL Urine Ketones Negative (Negative) mg/dL Ur Blood (Man) 2+ H (Negative) Urine Nitrate Positive H (Negative) Urine Bilirubin Negative (Negative) Urine Urobilinogen 2.0 H (<2.0) mg/dL Add Ur Microanalysis Reviewed Leukocyte Esterase Rfl Trace H (Negative) CHET/UL Urine RBC 3-5 H (0-2) /hpf Urine WBC 11-20 H (0-3) /hpf Ur Squamous Epith Cells Occasional (Few) /hpf Urine Bacteria 4+ H /hpf Urine Casts 11-20 Nasal MRSA (PCR) Not detected (NOT DETECTE) 01/03/25 Range/Units 15:20 Expiratory Pressure 7 CMH2O Inspiratory Pressure 14 CMH2O Urine Color (Yellow) Urine Appearance (Clear) Urine pH (5.0-9.0) Ur Specific [place] (1.001-1.035) Urine Protein (Negative) mg/dL Urine Glucose (UA) (Negative) mg/dL Urine Ketones (Negative) mg/dL Ur Blood (Man) (Negative) Urine Nitrate (Negative) Urine Bilirubin (Negative) Urine Urobilinogen (<2.0) mg/dL Add Ur Microanalysis Leukocyte Esterase Rfl (Negative) CHET/UL Urine RBC (0-2) /hpf Urine WBC (0-3) /hpf Ur Squamous Epith Cells (Few) /hpf Urine Bacteria /hpf Urine Casts Nasal MRSA (PCR) (NOT DETECTE) ABG Data ABG results: 01/03/25 01/03/25 11:31 15:20 Puncture Site Right brachial Artline ABG pH 7.285 L* 7.191 L* ABG pCO2 59.1 H 73.5 H* ABG pO2 81.8 80.4 ABG PO2/FiO2 Ratio 1.36 1.61 ABG HCO3 27.5 H 27.5 H ABG O2 Saturation 94.5 L 92.6 L ABG O2 Content 17.4 16.5 ABG Base Excess -0.3 -2.2 A-a Gradient 281.0 193.4 Oxyhemoglobin 92.6 91.9 Total Hemoglobin 13.3 12.7 O2 Delivery Device Non-invasive vent Non-invasive vent O2 Liters/Min Not Reportable Not Reportable Vent Rate 16 16 FiO2 60 50 Critical Care Time Critical Care Time Critical Care Time: Yes Total Critical Care Time: 60 Discharge Plan Discharge Clinical Impression: Acute hypercapnic respiratory failure, Acute hypoxemic respiratory failure, Pneumonia, Flu Patient Disposition: Still a Patient Condition: Critical Patient Language: Sierra Leonean Prescriptions: No Action metformin 500 mg tablet 500 mg PO BID losartan 100 mg tablet 100 mg PO DAILY levothyroxine 112 mcg tablet 112 mcg PO DAILY hydrochlorothiazide 12.5 mg tablet 12.5 mg PO DAILY ipratropium-albuterol 0.5 mg-3 mg(2.5 mg base)/3 mL Solution For Nebulization 3 ml inhalation Q6HRT PRN (Reason: Shortness Of Breath Or Wheezing) Qty: 180 0RF Rx Instructions: J44.9 benzonatate 100 mg Capsule 100 mg PO TID PRN (Reason: cough) Qty: 30 0RF (DME) nebulizer and compressor Device See Rx Instructions .Route Qty: 1 0RF Rx Instructions: As directed methylprednisolone [Medrol (Chente)] 4 mg tablets,dose pack See Rx Instructions .ROUTE .COMPLEX Qty: 21 0RF Rx Instructions: orally per package directions Follow-up/Referrals: Mars Valdez MD [Primary Care Provider] -
[2025-01-03] MEDS: MAGNESIUM SULF 2 GM/WATER 50ML 2 GM/50 ML BAG IVPB (11:25)
[2025-01-03 11:34] LABS: Base Excess ABG -0.3 mEq/l (+/-2.0); Fractional Inspired Oxygen 60 %; HCO3 ABG 27.5 mEq/l (22.0-26.0); Oxygen Content ABG 17.4 %vol (16.0-22.0); Oxygen Saturation ABG 94.5 % (95.0-100.0); Oxyhemoglobin 92.6 % THb (90.0-100.0); PCO2 ABG 59.1 mmHg (35.0-45.0); PO2 ABG 81.8 mmHg (80.0-100.0); PO2 FiO2 Ratio Arterial Blood 1.36 %; Total Hemoglobin 13.3 g/dL (12.0-18.0)
[2025-01-03 11:35] LABS: Device NON-INVASIVE VENT; Site Drawn RIGHT BRACHIAL; pH ABG 7.285 (7.350-7.450)
[2025-01-03 11:36] LABS: Non-Invasive Expiratory Pressure 7 CMH2O; Non-Invasive Inspiratory Pressure 14 CMH2O; Non-Invasive Vent Rate 16 /MIN
[2025-01-03] MEDS: OSELTAMIVIR PHOSPHATE 75 MG CAPSULE PO (12:07)
[2025-01-03] MEDS: CEFEPIME 2 GM/NS 50 ML 2 GM/50 ML BAG IVPB (12:14)
[2025-01-03] MEDS: SODIUM CHLORIDE 0.9% IV 100 ML 999 ML IV CONT (12:18)
[2025-01-03] MEDS: DOXYCYCLINE 100 MG/NS 100 ML 100 MG/100 ML BAG IVPB ×2 (12:21→21:04)
[2025-01-03] MEDS: VANCOMYCIN 1,250 MG/NS 250 ML 1,250 MG/250 ML BAG 166.67 MG IVPB ×2 (12:40→14:17)
[2025-01-03 13:53] LABS: MRSA (PCR) NOT DETECTED (NOT DETECTE)
[2025-01-03 14:52] LABS: Add Urine Microscopic? YES; Appearance Urine Cloudy (Clear); Bacteria Urine 4+ /hpf; Bilirubin Urine Negative (Negative); Blood Urine 2+ (Negative); Color Urine Yellow (Yellow); Glucose Urine UA Negative (Negative); Ketones Urine Negative (Negative); Leukocyte Esterase Ur Trace LEU/UL (Negative); Need Manual Microscopic Reviewed; Nitrate Urine Positive (Negative); Protein Urine 2+ mg/dL (Negative); Specific Grav Ur > 1.045 (1.001-1.035); Squamous Epithelial Cell Urine Occasional /hpf (Few)
[2025-01-03] MEDS: NOREPINEPHRINE 8 MG/D5W 250 ML 8 MG/250 ML BAG 9.38 MG IV CONT (15:12)
[2025-01-03 15:22] LABS: Alveolar/Arterial O2 Gradient 193.4 mmHg; Base Excess ABG -2.2 mEq/l (+/-2.0); Fractional Inspired Oxygen 50 %; HCO3 ABG 27.5 mEq/l (22.0-26.0); Oxygen Content ABG 16.5 %vol (16.0-22.0); Oxygen Saturation ABG 92.6 % (95.0-100.0); Oxyhemoglobin 91.9 % THb (90.0-100.0); PO2 ABG 80.4 mmHg (80.0-100.0); PO2 FiO2 Ratio Arterial Blood 1.61 %; Total Hemoglobin 12.7 g/dL (12.0-18.0)
[2025-01-03 15:24] LABS: PCO2 ABG 73.5 mmHg (35.0-45.0); pH ABG 7.191 (7.350-7.450)
[2025-01-03 15:25] LABS: Device NON-INVASIVE VENT; Non-Invasive Expiratory Pressure 7 CMH2O; Non-Invasive Inspiratory Pressure 14 CMH2O; Non-Invasive Vent Rate 16 /MIN; Site Drawn ARTLINE
[2025-01-03] MEDS: LACTATED RINGERS 1,000 ML 100 ML IV CONT (16:08)
[2025-01-03 16:28] LABS: Glucose Point of Care 237 mg/dl (65-105)
--- NOTE | 2025-01-03 17:42 | ADMGEN ---
This patient, Julisa Rocha, was admitted to Intensive Care Unit-5 at 1715. Patient/family oriented to hospital policies and general routines including ID bracelet, bed and alarms, visiting hours, pain management, procedures, bathroom and other care routines, personal items, smoking policy, room service/diet, and visiting hours. Information on how to activate the Rapid Response Team has been discussed. Patient/Family are encouraged to report perceived risks to care and to ask questions if they do not understand what they are told or what they should do.
--- NOTE | 2025-01-03 18:49 | P.HP_ITS ---
H&P: HPI History of Present Illness Date/Time: 01/03/25 18:49 Chief Complaint: Weakness and shortness of breath Narrative: 79-year-old female presents to the hospital with weakness shortness of breath. Patient on BiPAP with desaturations to low 80s when talking. HPI gathered from daughter is at bedside. Family states that patient had been sick for about a week with flu-like symptoms. The states that she had a cough that progressively got worse this morning. They were going to take her to the doctor but she was unable to bear her own weight is they had to call EMS. She is normally able to transfer from chair to wheelchair. Patient also complained of chills, fatigue and productive cough. In the ED patient's lab work showed elevated D-dimer of 1.31, ABG of pH 7.285, pCO2 59.1, PO2 O2 81, HC03 27.5, sodium 135, chloride 95, creatinine 1.04, glucose of 193, UA shows positive for nitrates trace leukocyte esterase and 4+ bacteria. Chest CT shows bibasilar pneumonia and no pulmonary embolism, CT head shows no acute process. The patient was placed on BiPAP with some improvement in her ABG. Patient has side of for breathing got worse shows want to be intubated. Family at bedside and supportive her decision. Review of Systems Review of Systems: Patient on BiPAP hypoxic when talking ROS unobtainable: Yes unobtainable due to medical condition [facility] Family History Family History Sibling Diabetes mellitus Social History Social History Smoking packs per day: 1 Smoking cigarettes per day: 20.0 Smoking status: Current every day smoker Tobacco type: cigarettes Second hand tobacco smoke exposure: Yes Alcohol intake: never Substance use: never Substance use type: does not use Spiritual care concerns: Yes Meds Home Medications and Allergies Home Medications ?Medication ?Instructions ?Recorded ?Confirmed ?Type hydrochlorothiazide 12.5 mg tablet 12.5 mg PO DAILY 05/17/22 01/03/25 History levothyroxine 112 mcg tablet 175 mcg PO DAILY 05/17/22 01/03/25 History losartan 100 mg tablet 50 mg PO DAILY 05/17/22 01/03/25 History nebulizer and compressor #1 ea 05/19/22 01/03/25 Rx glimepiride 1 mg tablet 1 mg PO DAILY 01/03/25 01/03/25 History Allergies Allergy/AdvReac Type Severity Reaction Status Date / Time Penicillins Allergy Mild Unknown Verified 01/03/25 17:53 Sulfa (Sulfonamide Allergy Mild Unknown Verified 01/03/25 17:53 Antibiotics) Vital Signs Vital Signs - 24 hr 01/03/25 10:26 01/03/25 10:27 01/03/25 10:38 Temperature 97.8 F Pulse Rate 80 71 Respiratory Rate 28 H 24 H Blood Pressure 93/57 L Pulse Oximetry 96 94 Oxygen Delivery BiPAP BiPAP BiPAP Fraction of Inspired Oxygen 01/03/25 11:05 01/03/25 11:44 01/03/25 11:45 Temperature Pulse Rate 78 79 Respiratory Rate 21 H 24 H Blood Pressure 76/40 L Pulse Oximetry 98 Oxygen Delivery BiPAP Fraction of Inspired Oxygen 01/03/25 11:46 01/03/25 11:49 01/03/25 11:51 Temperature Pulse Rate 75 84 Respiratory Rate 21 H 16 Blood Pressure Pulse Oximetry Oxygen Delivery BiPAP Fraction of Inspired Oxygen 01/03/25 11:52 01/03/25 12:20 01/03/25 12:22 Temperature Pulse Rate 90 86 Respiratory Rate 27 H 27 H Blood Pressure 95/64 L Pulse Oximetry 98 Oxygen Delivery BiPAP Fraction of Inspired Oxygen 01/03/25 12:23 01/03/25 12:25 01/03/25 12:44 Temperature Pulse Rate 85 87 74 Respiratory Rate 25 H 21 H Blood Pressure Pulse Oximetry Oxygen Delivery Fraction of Inspired Oxygen 01/03/25 13:09 01/03/25 13:10 01/03/25 13:38 Temperature 98.0 F Pulse Rate 76 80 78 Respiratory Rate 15 20 16 Blood Pressure Pulse Oximetry 94 98 Oxygen Delivery BiPAP Fraction of Inspired Oxygen 01/03/25 14:01 01/03/25 14:08 01/03/25 14:10 Temperature Pulse Rate 78 74 78 Respiratory Rate 23 H 17 18 Blood Pressure Pulse Oximetry 90 94 95 Oxygen Delivery Fraction of Inspired Oxygen 01/03/25 14:15 01/03/25 14:28 01/03/25 14:30 Temperature Pulse Rate 75 69 Respiratory Rate 25 H 19 26 H Blood Pressure Pulse Oximetry 97 96 95 Oxygen Delivery Fraction of Inspired Oxygen 01/03/25 14:35 01/03/25 14:49 01/03/25 14:50 Temperature 98.3 F 98.3 F Pulse Rate 78 70 76 Respiratory Rate 19 20 21 H Blood Pressure Pulse Oximetry 92 97 Oxygen Delivery Fraction of Inspired Oxygen 01/03/25 14:55 01/03/25 15:00 01/03/25 15:01 Temperature 98.5 F 98.6 F Pulse Rate 79 74 Respiratory Rate 20 25 H Blood Pressure Pulse Oximetry 100 99 88 L Oxygen Delivery BiPAP Fraction of Inspired Oxygen 01/03/25 15:08 01/03/25 15:10 01/03/25 15:12 Temperature 98.6 F 98.6 F Pulse Rate 69 89 68 Respiratory Rate 18 18 Blood Pressure 106/37 L Pulse Oximetry 98 Oxygen Delivery Fraction of Inspired Oxygen 01/03/25 15:15 01/03/25 15:19 01/03/25 15:20 Temperature 98.6 F 98.7 F Pulse Rate 67 68 66 Respiratory Rate 21 H 20 Blood Pressure 92/45 L 92/45 L Pulse Oximetry 94 98 Oxygen Delivery Fraction of Inspired Oxygen 01/03/25 15:20 01/03/25 15:21 01/03/25 15:22 Temperature 98.7 F 98.7 F Pulse Rate 67 69 65 Respiratory Rate 21 H 15 Blood Pressure 87/48 L 102/38 L Pulse Oximetry 96 96 Oxygen Delivery Fraction of Inspired Oxygen 01/03/25 15:25 01/03/25 15:26 01/03/25 15:27 Temperature 98.7 F Pulse Rate 63 63 60 Respiratory Rate 21 H 21 H Blood Pressure 106/39 L Pulse Oximetry 96 96 Oxygen Delivery BiPAP Fraction of Inspired Oxygen 01/03/25 15:32 01/03/25 15:35 01/03/25 15:41 Temperature 98.7 F 98.7 F 98.7 F Pulse Rate 66 63 77 Respiratory Rate 22 H 22 H 10 L Blood Pressure 113/56 L 94/63 L Pulse Oximetry 95 95 97 Oxygen Delivery Fraction of Inspired Oxygen 01/03/25 16:05 01/03/25 16:07 01/03/25 16:10 Temperature 98.6 F 98.6 F Pulse Rate 69 64 59 L Respiratory Rate 21 H 22 H Blood Pressure 114/53 L 135/55 L Pulse Oximetry 96 97 Oxygen Delivery Fraction of Inspired Oxygen 01/03/25 16:16 01/03/25 16:20 01/03/25 16:32 Temperature 98.5 F 98.6 F 98.6 F Pulse Rate 69 64 59 L Respiratory Rate 23 H 20 14 Blood Pressure 107/48 L Pulse Oximetry 96 97 98 Oxygen Delivery Fraction of Inspired Oxygen 01/03/25 16:40 01/03/25 16:46 01/03/25 16:50 Temperature 98.6 F 98.6 F 98.6 F Pulse Rate 60 61 60 Respiratory Rate 21 H 21 H 18 Blood Pressure 106/50 L Pulse Oximetry 97 97 98 Oxygen Delivery Fraction of Inspired Oxygen 01/03/25 16:55 01/03/25 17:01 01/03/25 17:03 Temperature 98.6 F 98.6 F 98.6 F Pulse Rate 59 L 59 L 59 L Respiratory Rate 22 H 18 20 Blood Pressure 103/47 L Pulse Oximetry 98 98 98 Oxygen Delivery Fraction of Inspired Oxygen 01/03/25 17:27 01/03/25 17:41 01/03/25 18:00 Temperature Pulse Rate 70 60 76 Respiratory Rate 24 H Blood Pressure 119/46 L Pulse Oximetry 92 Oxygen Delivery BiPAP Fraction of Inspired Oxygen 01/03/25 18:00 01/03/25 18:00 01/03/25 18:13 Temperature 99.0 F Pulse Rate 71 70 Respiratory Rate 20 Blood Pressure 110/54 L 118/47 L Pulse Oximetry 99 95 Oxygen Delivery BiPAP Fraction of Inspired Oxygen 50 Exam Narrative: General: Chronically ill appearing, appears stated age. HEENT: normocephalic, atraumatic. Mucous membranes moist. EOMI, PERRLA, bilateral sclera anicteric, no conjunctival injection. Neck supple without JVD, lymphadenopathy, or bruit. Respiratory: Coarse with wheezes on BiPAP Cardiovascular: Regular rate and rhythm, normal S1-S2 upon ascultation. No murmurs, rubs, or clicks. PMI is nondisplaced, capillary refill less than 3 second. Abdomen: Soft, round, no pulsatile masses, nondistended and nontender. No rebound, no guarding. No CVA tenderness, no hepatosplenomegaly. Bowel sounds present to all four quadrants. No high pitch or tinkling sounds, resonant to percussion. Extremities: No cyanosis, clubbing, or edema present. Pulses are palpable 2/2. Lower extremities woody with slight erythema no pain to palpation Neuro: Alert and orientated x 3. PERRLA. Cranial nerves 2-12 intact without focal deficit. Skin: Warm, dry, and intact, Psych: pleasant, cooperative, normal speech, normal affect, no hallucinations, no dysarthia Shoemaker catheter H&P: Results Labs Labs: Urine 01/03/25 Range/Units 14:37 Urine Color Yellow (Yellow) Urine Appearance Cloudy H (Clear) Urine pH 6.0 (5.0-9.0) Ur Specific [place] > 1.045 H (1.001-1.035) Urine Protein 2+ H (Negative) mg/dL Urine Glucose (UA) Negative (Negative) mg/dL Assessment and Plan Assessment and plan (1) Flu: Code(s): J11.1 - Influenza due to unidentified influenza virus with other respiratory manifestations Status: Acute Assessment and Plan: Tamiflu renally dose (2) Acute exacerbation of chronic obstructive pulmonary disease (COPD): Code(s): J44.1 - Chronic obstructive pulmonary disease with (acute) exacerbation Status: Acute Assessment and Plan: With hypoxia and hypercarbia Solu-Medrol x1 Prednisone in a.m. Patient admitted to ICU due to desaturations on BiPAP BiPAP Broad-spectrum antibiotics Repeat ABG in morning Currently NPO due to severe hypoxia (3) Pneumonia of both lower lobes: Code(s): J18.9 - Pneumonia, unspecified organism Status: Acute Assessment and Plan: Broad-spectrum antibiotics BiPAP DuoNebs (4) UTI (urinary tract infection): Code(s): N39.0 - Urinary tract infection, site not specified Status: Acute Assessment and Plan: On cefepime Cultures and sensitivities pending (5) Diabetes: Code(s): E11.9 - Type 2 diabetes mellitus without complications Status: Acute Assessment and Plan: Accu-Cheks q.6 Currently NPO Hypoglycemic protocol L Quality VTE Prophylaxis VTE prophylaxis: pharmacologic ordered Holding all home meds due to severe hypoxia on BiPAP Hospitalist MIPS Advance Care Plan I have confirmed that the patient's Advanced Care Plan is present, code status is documented, or surrogate decision maker is listed in patient medical record.: Yes Medication Reconciliation I have utilized all available resources to obtain, update and review the patients current medications (includes all prescriptions, OTC, herbals, cannabis, and nutritional supplements).: Yes
[2025-01-03 19:21] LABS: MRSA (PCR) NOT DETECTED (NOT DETECTE)
[2025-01-03 19:57] LABS: Anion Gap 6 mmol/L (4-12); Blood Urea Nitrogen 19 mg/dL (7-17); Calcium 7.3 mg/dL (8.4-10.2); Carbon Dioxide 29 mmol/L (22-30); Chloride 100 mmol/L (98-107); Estimated CRCL calculation 49 ml/min; Estimated Glomerular Filt Rate 60; Glucose 235 mg/dL (65-110); Magnesium 2.2 mg/dL (1.6-2.3); Potassium 3.8 mmol/L (3.4-5.0); Sodium 135 mmol/L (137-145)
[2025-01-03 20:23] LABS: Alveolar/Arterial O2 Gradient 205.3 mmHg; Base Excess ABG -1.6 mEq/l (+/-2.0); Carboxyhemoglobin 1.1 % THb (0-2.0); Fractional Inspired Oxygen 50 %; HCO3 ABG 26.7 mEq/l (22.0-26.0); Oxygen Content ABG 17.3 %vol (16.0-22.0); Oxygen Saturation ABG 93.9 % (95.0-100.0); Oxyhemoglobin 94.2 % THb (90.0-100.0); PO2 ABG 81.3 mmHg (80.0-100.0); PO2 FiO2 Ratio Arterial Blood 1.63 %; Reduced Hemoglobin 4.7 %THb (0-5.0)
[2025-01-03 20:25] LABS: pH ABG 7.252 (7.350-7.450)
[2025-01-03 20:26] LABS: Device BIPAP; Expiratory Pressure 6 cmH2O; Inspiratory Pressure 18 cmH2O; PCO2 ABG 62.1 mmHg (35.0-45.0); Site Drawn ARTLINE
[2025-01-03] MEDS: OSELTAMIVIR PHOSPHATE 30 MG CAPSULE PO (21:04)
[2025-01-03] MEDS: CENTRAL LINE FLUSH 10 ML IV PUSH (21:04)
[2025-01-04] VITALS (48 sets, daily range): BP systolic 94–126; BP diastolic 38–56; PULSE 52–83; RESP 18–28; TEMP 36.8–37.3; O2SAT 91–98
--- NOTE | 2025-01-04 | ECHO_ITS ---
Patient Info Name: Julisa Rocha Age: 79 years : 1945 Gender: Female Ht: 62 in Wt: 223 lbs BSA: 2.16 m2 Technical Quality: Fair Exam Date: 01/04/2025 1:37 PM Exam Location: [facility] Patient Status: Inpatient Admit Date: 01/03/2025 Staff Ordering Physician: Kennedy Disla MD Buckle Stapler: Bhargavi Armstrong RDCS Attending Provider: Meri Arreola MD Exam Type: CA echo doppler color flow Study Info Indications - Congestive heart failure - Shock Complete two-dimensional, color flow and Doppler transthoracic echocardiogram is performed. Summary 1. Complete two-dimensional, color flow and Doppler transthoracic echocardiogram is performed. 2. Left ventricular chamber dimension is normal. 3. Left ventricular systolic function is normal, estimated at 60-65%. 4. The left ventricular diastolic function is abnormal. 5. E/e' 10 is mildly elevated. 6. There is mild aortic valve sclerosis. 7. There is moderate tricuspid valve regurgitation. 8. No pulmonary hypertension, estimated pulmonary arterial systolic pressure is 36 mmHg. Left Ventricle E/e' 10 is mildly elevated. Left ventricular chamber dimension is normal. Left ventricular systolic function is normal, estimated at 60-65%. The left ventricular diastolic function is abnormal. Right Ventricle Right ventricular systolic function is normal and with normal TAPSE 2.1 cm. Right ventricular chamber dimension is normal. Left Atria Left atrial chamber dimension is normal. Right Atria Right atrial chamber dimension is normal. Aortic Valve The aortic valve is trileaflet. There is mild aortic valve sclerosis. There is no aortic valve stenosis. There is no aortic valve regurgitation. Pulmonic Valve There is no pulmonic regurgitation. Mitral Valve There is no mitral valve stenosis. There is no mitral valve regurgitation. Tricuspid Valve There is moderate tricuspid valve regurgitation. No pulmonary hypertension, estimated pulmonary arterial systolic pressure is 36 mmHg. Pericardium/Pleural There is no pericardial effusion. Inferior Vena Cava Normal inferior vena cava with >50% collapse upon inspiration consistent with normal right atrial pressure, 5 mmHg. Aorta The aortic root size at the sinus of Valsalva is normal. Left Ventricular Outflow Tract Name Value Normal LVOT 2D LVOT Diameter 2.0 cm LVOT Doppler LVOT Peak Gradient 2 mmHg Pulmonic Valve Name Value Normal PV Doppler PV Peak Gradient 3 mmHg Mitral Valve Name Value Normal MV Doppler MV Decel Cross 226 cm/s2 MV PHT 74 ms MV Area (PHT) 3.0 cm2 4.0-5.0 MV Diastolic Function MV E Peak Velocity 58 cm/s MV A Peak Velocity 56 cm/s MV E/A 1.0 MV Decel Time 257 ms MV Annular TDI MV E/e' (Septal) 9.4 <=8.0 MV E/e' (Lateral) 10.6 <=8.0 MV E/e' (Average) 10.0 Tricuspid Valve Name Value Normal TV Regurgitation Doppler TR Peak Velocity 280 cm/s TR Peak Gradient 24 mmHg Estimated PAP/RSVP RA Pressure 5 mmHg <=5 PA Systolic Pressure 36 mmHg <36 RV Systolic Pressure 36 mmHg <36 Aorta Name Value Normal Ascending Aorta Ao Root Diameter (MM) 3.4 cm Ao Root Diam Index (MM) 1.6 cm/m2 Aortic Valve Name Value Normal AV Doppler AV Peak Velocity 93 cm/s AV Peak Gradient 3 mmHg AV Area (Cont Eq Sai) 2.2 cm2 AV Regurgitation 2D LVOT Area 3.0 cm2 Ventricles Name Value Normal LV Dimensions 2D/MM IVS Diastolic Thickness (2D) 1.1 cm 0.6-1.0 LVID Diastole (2D) 4.3 cm 3.8-5.2 LVIW Diastolic Thickness (2D) 1.0 cm 0.6-0.9 LVID Systole (2D) 2.7 cm 2.2-3.5 LVOT Diameter 2.0 cm LV Mass (2D Cubed) 156.34 g 67.00-162.00 LV Mass Index (2D Cubed) 72 g/m2 43-95 Relative Wall Thickness (2D) 0.47 LV Fractional Shortening/Ejection Fraction 2D/MM LV Fractional Shortening (2D) 38 % 27-45 LV EF (2D Teicholz) 68 % 54-74 LV Diastolic Volume (4C MOD) 85 ml LV EF (4C MOD) 69 % LV Diastolic Length (4C) 7.3 cm LV Systolic Length (4C) 6.4 cm LV Stroke Volume (4C MOD) 59 ml RV Dimensions 2D/MM RVID Diastole (2D) 3.8 cm 2.5-3.5 Atria Name Value Normal LA Dimensions LA Dimension (MM) 2.4 cm 2.7-3.8 Report Signatures
[2025-01-04 00:10] LABS: Glucose Point of Care 188 mg/dl (65-105)
[2025-01-04] MEDS: IPRATROPIUM 0.5 MG/ALBUTEROL SULFATE 2.5 MG AMPUL.NEB 3 ML INHALATION ×5 (02:14→20:11)
[2025-01-04] MEDS: NOREPINEPHRINE 8 MG/D5W 250 ML 8 MG/250 ML BAG 18.75 MG IV CONT (04:00)
[2025-01-04 05:22] LABS: Base Excess ABG 0.2 mEq/l (+/-2.0); Fractional Inspired Oxygen 45 %; HCO3 ABG 29.1 mEq/l (22.0-26.0); Methemoglobin ABG 0.3 %THb (0-1.5); Oxygen Content ABG 18.4 %vol (16.0-22.0); Oxygen Saturation ABG 95.2 % (95.0-100.0); Oxyhemoglobin 95.4 % THb (90.0-100.0); PO2 ABG 89.2 mmHg (80.0-100.0); PO2 FiO2 Ratio Arterial Blood 1.98 %; Reduced Hemoglobin 3.3 %THb (0-5.0); Total Hemoglobin 13.7 g/dL (12.0-18.0)
[2025-01-04 05:24] LABS: Device BIPAP; Expiratory Pressure 8 cmH2O; Inspiratory Pressure 16 cmH2O; PCO2 ABG 67.4 mmHg (35.0-45.0); Site Drawn ARTLINE; pH ABG 7.253 (7.350-7.450)
[2025-01-04] MEDS: CENTRAL LINE FLUSH 10 ML IV PUSH ×3 (06:26→20:38)
[2025-01-04] MEDS: NOREPINEPHRINE 8 MG/D5W 250 ML 8 MG/250 ML BAG 16.88 MG IV CONT (06:32)
[2025-01-04 06:34] LABS: Hematocrit 42.6 % (37.0-47.0); Hemoglobin 13.2 g/dL (12.0-15.0); Mean Corpuscular Hemoglobin 31.4 pg (26-34); Mean Corpuscular Volume 101.4 fl (80-100); Mean Platelet Volume 9.9 fl (7.4-10.4); Platelet Count Result 171 k/mm3 (150-375); Red Cell Distribution Width 13.9 % (11.5-14.5); White Blood Count 15.3 K/mm3 (4.5-10.0)
[2025-01-04 06:44] LABS: Alanine Aminotransferase 32 U/L (6-35); Albumin Level 3.4 g/dL (3.5-5.1); Alkaline Phosphatase 67 U/L (38-126); Anion Gap 3 mmol/L (4-12); Aspartate Amino Transferase 48 U/L (14-36); Bilirubin,Total 0.5 mg/dL (0.2-1.3); Blood Urea Nitrogen 17 mg/dL (7-17); Calcium 7.6 mg/dL (8.4-10.2); Carbon Dioxide 33 mmol/L (22-30); Chloride 102 mmol/L (98-107); Estimated CRCL calculation 51 ml/min; Estimated Glomerular Filt Rate > 60; Glucose 134 mg/dL (65-110); Magnesium 2.2 mg/dL (1.6-2.3); Phosphorus 3.3 mg/dL (2.5-4.5); Potassium 3.9 mmol/L (3.4-5.0); Sodium 138 mmol/L (137-145)
--- NOTE | 2025-01-04 08:22 | P.PNIM_ITS ---
Progress Note: A&P Assessment and Plan (1) Flu: Code(s): J11.1 - Influenza due to unidentified influenza virus with other respiratory manifestations Status: Acute Assessment and Plan: Tamiflu renally dose (2) Acute exacerbation of chronic obstructive pulmonary disease (COPD): Code(s): J44.1 - Chronic obstructive pulmonary disease with (acute) exacerbation Status: Acute Assessment and Plan: With hypoxia and hypercarbia Solu-Medrol x1 Prednisone in a.m. Patient admitted to ICU due to desaturations on BiPAP BiPAP Broad-spectrum antibiotics Repeat ABG in morning Currently NPO due to severe hypoxia (3) Pneumonia of both lower lobes: Code(s): J18.9 - Pneumonia, unspecified organism Status: Acute Assessment and Plan: Broad-spectrum antibiotics BiPAP DuoNebs (4) UTI (urinary tract infection): Code(s): N39.0 - Urinary tract infection, site not specified Status: Acute Assessment and Plan: On cefepime Cultures and sensitivities pending (5) Diabetes: Code(s): E11.9 - Type 2 diabetes mellitus without complications Status: Acute Assessment and Plan: Accu-Cheks q.6 Currently NPO Hypoglycemic protocol (6) Septic shock: Code(s): A41.9 - Sepsis, unspecified organism; R65.21 - Severe sepsis with septic shock Status: Acute Assessment and Plan: Septic shock secondary to pneumonia, influenza and UTI Blood and urine cultures Continue Levophed titration to maintain mean arterial pressure Hold further crystalloids as patient has received amount of IV fluids and patient likely has congestive heart failure (7) Acute and chronic respiratory failure: Code(s): J96.20 - Acute and chronic respiratory failure, unspecified whether with hypoxia or hypercapnia Status: Acute Assessment and Plan: Acute on chronic respiratory failure with hypercapnia and hypoxia secondary to pneumonia, influenza Patient likely has chronic hypercapnic respiratory failure secondary to obesity hypoventilation syndrome and possibly COPD as patient has history of smoking Currently on BiPAP ABG reviewed at 7 Hold further crystalloids Steroids and bronchodilator Tamiflu and isolation for influenza Empiric antibiotics -cefepime doxycycline. Will hold vancomycin has nasal MRSA screen was negative (8) Pneumonia: Code(s): J18.9 - Pneumonia, unspecified organism Status: Acute Assessment and Plan: See above (9) Congestive heart failure: Code(s): I50.9 - Heart failure, unspecified Status: Acute Assessment and Plan: Lower extremity edema with chronic venous stasis changes. Check echo Check BNP (10) Hypothyroidism: Code(s): E03.9 - Hypothyroidism, unspecified Status: Acute Assessment and Plan: Continue levothyroxine. Check TSH Subjective Date/time seen: 01/04/25 08:22 Interval history: Patient was evaluated the bedside. Patient lives in a home with her son. Patient uses wheelchair and does not use any supplemental oxygen. Patient current smoker (1 ppd) and has a history of diabetes mellitus, hypertension and patient takes a water pill which he was she was not able to tell due to the CHF. Patient follows up with the PCP Discussed with the slip laster. Review of Systems Review of Systems: Patient on BiPAP hypoxic when talking All systems reviewed & are unremarkable except as noted in HPI and below (HPI and below) ROS unobtainable: Yes unobtainable due to medical condition Exam Narrative: General: Chronically ill appearing, appears stated age. HEENT: normocephalic, atraumatic. Mucous membranes moist. EOMI, PERRLA, bilateral sclera anicteric, no conjunctival injection. Neck supple without JVD, lymphadenopathy, or bruit. Respiratory: Coarse with wheezes on BiPAP Cardiovascular: Regular rate and rhythm, normal S1-S2 upon ascultation. No murmurs, rubs, or clicks. PMI is nondisplaced, capillary refill less than 3 second. Abdomen: Soft, round, no pulsatile masses, nondistended and nontender. No rebound, no guarding. No CVA tenderness, no hepatosplenomegaly. Bowel sounds present to all four quadrants. No high pitch or tinkling sounds, resonant to percussion. Extremities: No cyanosis, clubbing, or edema present. Pulses are palpable 2/2. Lower extremities woody with slight erythema no pain to palpation Neuro: Alert and orientated x 3. PERRLA. Cranial nerves 2-12 intact without focal deficit. Skin: Warm, dry, and intact, Psych: pleasant, cooperative, normal speech, normal affect, no hallucinations, no dysarthia Shoemaker catheter Objective Data Vital Signs Vital Signs: Vital Signs - 24 hr 01/03/25 10:26 01/03/25 10:27 01/03/25 10:38 Temperature 97.8 F Pulse Rate 80 71 Respiratory Rate 28 H 24 H Blood Pressure 93/57 L Pulse Oximetry 96 94 Oxygen Delivery BiPAP BiPAP BiPAP Fraction of Inspired Oxygen 01/03/25 11:05 01/03/25 11:44 01/03/25 11:45 Temperature Pulse Rate 78 79 Respiratory Rate 21 H 24 H Blood Pressure 76/40 L Pulse Oximetry 98 Oxygen Delivery BiPAP Fraction of Inspired Oxygen 01/03/25 11:46 01/03/25 11:49 01/03/25 11:51 Temperature Pulse Rate 75 84 Respiratory Rate 21 H 16 Blood Pressure Pulse Oximetry Oxygen Delivery BiPAP Fraction of Inspired Oxygen 01/03/25 11:52 01/03/25 12:20 01/03/25 12:22 Temperature Pulse Rate 90 86 Respiratory Rate 27 H 27 H Blood Pressure 95/64 L Pulse Oximetry 98 Oxygen Delivery BiPAP Fraction of Inspired Oxygen 01/03/25 12:23 01/03/25 12:25 01/03/25 12:44 Temperature Pulse Rate 85 87 74 Respiratory Rate 25 H 21 H Blood Pressure Pulse Oximetry Oxygen Delivery Fraction of Inspired Oxygen 01/03/25 13:09 01/03/25 13:10 01/03/25 13:38 Temperature 98.0 F Pulse Rate 76 80 78 Respiratory Rate 15 20 16 Blood Pressure Pulse Oximetry 94 98 Oxygen Delivery BiPAP Fraction of Inspired Oxygen 01/03/25 14:01 01/03/25 14:08 01/03/25 14:10 Temperature Pulse Rate 78 74 78 Respiratory Rate 23 H 17 18 Blood Pressure Pulse Oximetry 90 94 95 Oxygen Delivery Fraction of Inspired Oxygen 01/03/25 14:15 01/03/25 14:28 01/03/25 14:30 Temperature Pulse Rate 75 69 Respiratory Rate 25 H 19 26 H Blood Pressure Pulse Oximetry 97 96 95 Oxygen Delivery Fraction of Inspired Oxygen 01/03/25 14:35 01/03/25 14:49 01/03/25 14:50 Temperature 98.3 F 98.3 F Pulse Rate 78 70 76 Respiratory Rate 19 20 21 H Blood Pressure Pulse Oximetry 92 97 Oxygen Delivery Fraction of Inspired Oxygen 01/03/25 14:55 01/03/25 15:00 01/03/25 15:01 Temperature 98.5 F 98.6 F Pulse Rate 79 74 Respiratory Rate 20 25 H Blood Pressure Pulse Oximetry 100 99 88 L Oxygen Delivery BiPAP Fraction of Inspired Oxygen 01/03/25 15:08 01/03/25 15:10 01/03/25 15:12 Temperature 98.6 F 98.6 F Pulse Rate 69 89 68 Respiratory Rate 18 18 Blood Pressure 106/37 L Pulse Oximetry 98 Oxygen Delivery Fraction of Inspired Oxygen 01/03/25 15:15 01/03/25 15:19 01/03/25 15:20 Temperature 98.6 F 98.7 F Pulse Rate 67 68 66 Respiratory Rate 21 H 20 Blood Pressure 92/45 L 92/45 L Pulse Oximetry 94 98 Oxygen Delivery Fraction of Inspired Oxygen 01/03/25 15:20 01/03/25 15:21 01/03/25 15:22 Temperature 98.7 F 98.7 F Pulse Rate 67 69 65 Respiratory Rate 21 H 15 Blood Pressure 87/48 L 102/38 L Pulse Oximetry 96 96 Oxygen Delivery Fraction of Inspired Oxygen 01/03/25 15:25 01/03/25 15:26 01/03/25 15:27 Temperature 98.7 F Pulse Rate 63 63 60 Respiratory Rate 21 H 21 H Blood Pressure 106/39 L Pulse Oximetry 96 96 Oxygen Delivery BiPAP Fraction of Inspired Oxygen 01/03/25 15:32 01/03/25 15:35 01/03/25 15:41 Temperature 98.7 F 98.7 F 98.7 F Pulse Rate 66 63 77 Respiratory Rate 22 H 22 H 10 L Blood Pressure 113/56 L 94/63 L Pulse Oximetry 95 95 97 Oxygen Delivery Fraction of Inspired Oxygen 01/03/25 16:05 01/03/25 16:07 01/03/25 16:10 Temperature 98.6 F 98.6 F Pulse Rate 69 64 59 L Respiratory Rate 21 H 22 H Blood Pressure 114/53 L 135/55 L Pulse Oximetry 96 97 Oxygen Delivery Fraction of Inspired Oxygen 01/03/25 16:16 01/03/25 16:20 01/03/25 16:32 Temperature 98.5 F 98.6 F 98.6 F Pulse Rate 69 64 59 L Respiratory Rate 23 H 20 14 Blood Pressure 107/48 L Pulse Oximetry 96 97 98 Oxygen Delivery Fraction of Inspired Oxygen 01/03/25 16:40 01/03/25 16:46 01/03/25 16:50 Temperature 98.6 F 98.6 F 98.6 F Pulse Rate 60 61 60 Respiratory Rate 21 H 21 H 18 Blood Pressure 106/50 L Pulse Oximetry 97 97 98 Oxygen Delivery Fraction of Inspired Oxygen 01/03/25 16:55 01/03/25 17:01 01/03/25 17:03 Temperature 98.6 F 98.6 F 98.6 F Pulse Rate 59 L 59 L 59 L Respiratory Rate 22 H 18 20 Blood Pressure 103/47 L Pulse Oximetry 98 98 98 Oxygen Delivery Fraction of Inspired Oxygen 01/03/25 17:27 01/03/25 17:41 01/03/25 18:00 Temperature Pulse Rate 70 60 76 Respiratory Rate 24 H Blood Pressure 119/46 L Pulse Oximetry 92 Oxygen Delivery BiPAP Fraction of Inspired Oxygen 01/03/25 18:00 01/03/25 18:00 01/03/25 18:13 Temperature 99.0 F Pulse Rate 71 70 Respiratory Rate 20 Blood Pressure 110/54 L 118/47 L Pulse Oximetry 99 95 Oxygen Delivery BiPAP Fraction of Inspired Oxygen 50 01/03/25 19:08 01/03/25 20:00 01/03/25 20:00 Temperature Pulse Rate 70 53 L Respiratory Rate Blood Pressure 87/52 L 117/45 L Pulse Oximetry 95 Oxygen Delivery BiPAP Fraction of Inspired Oxygen 50 01/03/25 20:00 01/03/25 20:00 01/03/25 20:29 Temperature 99.2 F Pulse Rate 55 L 55 L 54 L Respiratory Rate 24 H 16 Blood Pressure 118/46 L Pulse Oximetry 95 97 Oxygen Delivery BiPAP Fraction of Inspired Oxygen 01/03/25 20:30 01/03/25 20:30 01/03/25 20:40 Temperature Pulse Rate 55 L 54 L Respiratory Rate Blood Pressure 127/49 L 127/49 L Pulse Oximetry 97 Oxygen Delivery BiPAP Fraction of Inspired Oxygen 45 01/03/25 21:00 01/03/25 21:35 01/03/25 21:50 Temperature Pulse Rate 56 L 59 L 54 L Respiratory Rate Blood Pressure 121/47 L 104/44 L 116/47 L Pulse Oximetry Oxygen Delivery Fraction of Inspired Oxygen 01/03/25 22:00 01/03/25 22:00 01/03/25 22:00 Temperature 99.4 F Pulse Rate 50 L 54 L 54 L Respiratory Rate 24 H Blood Pressure 121/49 L 116/47 L Pulse Oximetry 94 Oxygen Delivery Fraction of Inspired Oxygen 01/03/25 22:25 01/03/25 22:50 01/04/25 00:00 Temperature 99.2 F Pulse Rate 56 L 56 L 54 L Respiratory Rate 22 H 24 H Blood Pressure 122/49 L 117/48 L Pulse Oximetry 94 94 Oxygen Delivery BiPAP Fraction of Inspired Oxygen 01/04/25 00:00 01/04/25 00:00 01/04/25 00:00 Temperature Pulse Rate 55 L 57 L Respiratory Rate Blood Pressure 116/47 L Pulse Oximetry 94 Oxygen Delivery BiPAP Fraction of Inspired Oxygen 45 01/04/25 02:00 01/04/25 02:00 01/04/25 02:00 Temperature 99.1 F Pulse Rate 60 59 L 57 L Respiratory Rate 26 H Blood Pressure 113/47 L 118/48 L Pulse Oximetry 96 Oxygen Delivery Fraction of Inspired Oxygen 01/04/25 02:14 01/04/25 02:14 01/04/25 02:19 Temperature Pulse Rate 52 L 52 L 75 Respiratory Rate 22 H 22 H 22 H Blood Pressure Pulse Oximetry 95 Oxygen Delivery BiPAP Fraction of Inspired Oxygen 01/04/25 02:33 01/04/25 04:00 01/04/25 04:00 Temperature Pulse Rate 70 54 L Respiratory Rate Blood Pressure 94/39 L 120/49 L Pulse Oximetry 96 Oxygen Delivery BiPAP Fraction of Inspired Oxygen 45 01/04/25 04:00 01/04/25 04:00 01/04/25 05:43 Temperature 98.9 F Pulse Rate 63 54 L 59 L Respiratory Rate 24 H 18 Blood Pressure 114/47 L Pulse Oximetry 96 96 Oxygen Delivery BiPAP Fraction of Inspired Oxygen 01/04/25 06:00 01/04/25 06:00 01/04/25 06:25 Temperature 98.8 F Pulse Rate 65 55 L 63 Respiratory Rate 24 H Blood Pressure 105/56 L 118/48 L 111/45 L Pulse Oximetry 98 Oxygen Delivery Fraction of Inspired Oxygen 01/04/25 06:32 01/04/25 06:32 01/04/25 07:28 Temperature Pulse Rate 64 64 68 Respiratory Rate Blood Pressure 118/48 L 118/48 L 122/50 L Pulse Oximetry Oxygen Delivery Fraction of Inspired Oxygen 01/04/25 07:40 01/04/25 07:42 01/04/25 07:42 Temperature Pulse Rate 62 62 62 Respiratory Rate 20 20 20 Blood Pressure Pulse Oximetry 98 98 Oxygen Delivery BiPAP BiPAP Fraction of Inspired Oxygen 45 01/04/25 07:50 01/04/25 08:00 01/04/25 08:01 Temperature 98.3 F Pulse Rate 67 59 L 60 Respiratory Rate 18 Blood Pressure 115/48 L 119/46 L 119/45 L Pulse Oximetry 96 Oxygen Delivery Fraction of Inspired Oxygen 01/04/25 08:01 Temperature Pulse Rate 67 Respiratory Rate 20 Blood Pressure Pulse Oximetry Oxygen Delivery Fraction of Inspired Oxygen Intake/Output Intake/Output: Intake & Output 01/02/25 01/02/25 01/03/25 01/04/25 00:59 23:59 23:59 23:59 Intake Total 4014.4 133.0 Output Total 650 Balance 4014.4 -517.0 Meds/Results Medications: Active Medications Generic Name Dose Route Start Last Admin Trade Name Freq PRN Reason Stop Dose Admin Albuterol/Ipratropium 3 ml 01/04/25 02:00 01/04/25 07:41 Ipratropium 0.5 Mg/Albuterol Sulfate 2.5 Mg Ampul.Neb 3 Ml INHALATION 3 ml Q6HRT DIANN Administration Dextrose 12.5 gm 01/04/25 00:51 Dextrose 50% 25 Gm/50 Ml Syringe IV PUSH PRN PRN Hypoglycemia Protocol Enoxaparin Sodium 40 mg 01/04/25 09:00 Enoxaparin 40 Mg/0.4 Ml Syringe SUB-Q DAILY DIANN Glucagon 1 mg 01/04/25 00:51 Glucagon For Inj 1 Mg Vial IM PRN PRN Hypoglycemia Protocol Glucose 15 gm 01/04/25 00:51 Glucose Oral Gel 15 Gm Of Glucse In 37.5 Gm Tube PO PRN PRN Hypoglycemia Protocol Doxycycline Hyclate 100 mg in 100 mls @ 100 mls/hr 01/03/25 22:00 01/03/25 22:04 Vibramycin 100 Mg/Ns 100 Ml IVPB Infused Q12HR DIANN Infusion Dextrose 1,000 mls @ 100 mls/hr 01/04/25 00:51 Dextrose 5% 1,000 Ml IVPB PRN PRN Hypoglycemia Protocol Norepinephrine Bitartrate 8 mg in 250 mls @ 11.25 mls/hr 01/04/25 04:10 01/04/25 08:01 Levophed 8 Mg/D5w 250 Ml IV CONT 6 mcg/min .[id number] DIANN 11.25 mls/hr Titration Protocol 6 MCG/MIN Insulin Aspart 4 - 8 units 01/04/25 06:00 01/04/25 06:54 Insulin Aspart (*Bkc) 100 Units/Ml SUB-Q Not Given Q6HR DIANN Protocol Oseltamivir Phosphate 30 mg 01/03/25 21:00 01/03/25 21:04 Oseltamivir Phosphate 30 Mg Capsule PO 01/08/25 20:59 30 mg Q12HR DIANN Administration Prednisone 40 mg 01/04/25 08:00 Prednisone 20 Mg Tablet PO DAILY@0800 DIANN Sodium Chloride 10 ml 01/03/25 22:00 01/04/25 06:26 Central Line Flush IV PUSH 10 ml Q8HR DIANN Administration Sodium Chloride 20 ml 01/03/25 17:40 Central Line Flush IV PUSH PRN PRN after blood draws Radiology Results: ITS Impressions Chest CTA 01/03/25 13:40 IMPRESSION: 1. Bibasilar pneumonia. Pneumonia in the right upper lobe. 2. No pulmonary embolism. Chest X-Ray 01/03/25 15:12 IMPRESSION: Cardiomegaly. Interstitial thickening suggestive of pulmonary edema versus pneumonitis. Left basilar atelectasis versus pneumonia. Head CT 01/03/25 16:01 Impression: No acute intracranial hemorrhage or suspicious mass effect. Labs Labs: Laboratory Results - last 24 hr 01/03/25 01/03/25 01/03/25 11:31 12:10 14:37 WBC RBC Hgb Hct MCV MCH MCHC RDW Plt Count MPV Puncture Site Right brachial ABG pH 7.285 L* ABG pCO2 59.1 H ABG pO2 81.8 ABG PO2/FiO2 Ratio 1.36 ABG HCO3 27.5 H ABG O2 Saturation 94.5 L ABG O2 Content 17.4 ABG Base Excess -0.3 A-a Gradient 281.0 Oxyhemoglobin 92.6 Carboxyhemoglobin Methemoglobin Reduced Hemoglobin Total Hemoglobin 13.3 O2 Delivery Device Non-invasive vent O2 Liters/Min Not Reportable Vent Rate 16 FiO2 60 Expiratory Pressure 7 Inspiratory Pressure 14 Sodium Potassium Chloride Carbon Dioxide Anion Gap BUN Creatinine Estim Creat Clear Calc Estimated GFR Glucose POC Capillary Glucose Calcium Phosphorus Magnesium Total Bilirubin AST ALT Alkaline Phosphatase Total Protein Albumin Urine Color Yellow Urine Appearance Cloudy H Urine pH 6.0 Ur Specific [place] > 1.045 H Urine Protein 2+ H Urine Glucose (UA) Negative Urine Ketones Negative Ur Blood (Man) 2+ H Urine Nitrate Positive H Urine Bilirubin Negative Urine Urobilinogen 2.0 H Add Ur Microanalysis Reviewed Leukocyte Esterase Rfl Trace H Urine RBC 3-5 H Urine WBC 11-20 H Ur Squamous Epith Cells Occasional Urine Bacteria 4+ H Urine Casts 11-20 Nasal MRSA (PCR) Not detected 01/03/25 01/03/25 01/03/25 15:20 16:24 18:06 WBC RBC Hgb Hct MCV MCH MCHC RDW Plt Count MPV Puncture Site Artline ABG pH 7.191 L* ABG pCO2 73.5 H* ABG pO2 80.4 ABG PO2/FiO2 Ratio 1.61 ABG HCO3 27.5 H ABG O2 Saturation 92.6 L ABG O2 Content 16.5 ABG Base Excess -2.2 A-a Gradient 193.4 Oxyhemoglobin 91.9 Carboxyhemoglobin Methemoglobin Reduced Hemoglobin Total Hemoglobin 12.7 O2 Delivery Device Non-invasive vent O2 Liters/Min Not Reportable Vent Rate 16 FiO2 50 Expiratory Pressure 7 Inspiratory Pressure 14 Sodium Potassium Chloride Carbon Dioxide Anion Gap BUN Creatinine Estim Creat Clear Calc Estimated GFR Glucose POC Capillary Glucose 237 H Calcium Phosphorus Magnesium Total Bilirubin AST ALT Alkaline Phosphatase Total Protein Albumin Urine Color Urine Appearance Urine pH Ur Specific [place] Urine Protein Urine Glucose (UA) Urine Ketones Ur Blood (Man) Urine Nitrate Urine Bilirubin Urine Urobilinogen Add Ur Microanalysis Leukocyte Esterase Rfl Urine RBC Urine WBC Ur Squamous Epith Cells Urine Bacteria Urine Casts Nasal MRSA (PCR) Not detected 01/03/25 01/03/25 01/04/25 19:41 20:11 00:05 WBC RBC Hgb Hct MCV MCH MCHC RDW Plt Count MPV Puncture Site Artline ABG pH 7.252 L* ABG pCO2 62.1 H* ABG pO2 81.3 ABG PO2/FiO2 Ratio 1.63 ABG HCO3 26.7 H ABG O2 Saturation 93.9 L ABG O2 Content 17.3 ABG Base Excess -1.6 A-a Gradient 205.3 Oxyhemoglobin 94.2 Carboxyhemoglobin 1.1 Methemoglobin 0.0 Reduced Hemoglobin 4.7 Total Hemoglobin 13.0 O2 Delivery Device Bipap O2 Liters/Min Not Reportable Vent Rate FiO2 50 Expiratory Pressure 6 Inspiratory Pressure 18 Sodium 135 L Potassium 3.8 Chloride 100 Carbon Dioxide 29 Anion Gap 6 BUN 19 H Creatinine 0.91 Estim Creat Clear Calc 49 Estimated GFR 60 Glucose 235 H POC Capillary Glucose 188 H Calcium 7.3 L Phosphorus Magnesium 2.2 Total Bilirubin AST ALT Alkaline Phosphatase Total Protein Albumin Urine Color Urine Appearance Urine pH Ur Specific [place] Urine Protein Urine Glucose (UA) Urine Ketones Ur Blood (Man) Urine Nitrate Urine Bilirubin Urine Urobilinogen Add Ur Microanalysis Leukocyte Esterase Rfl Urine RBC Urine WBC Ur Squamous Epith Cells Urine Bacteria Urine Casts Nasal MRSA (PCR) 01/04/25 01/04/25 05:12 06:18 WBC 15.3 H RBC 4.20 Hgb 13.2 Hct 42.6 MCV 101.4 H MCH 31.4 MCHC 31.0 L RDW 13.9 Plt Count 171 MPV 9.9 Puncture Site Artline ABG pH 7.253 L* ABG pCO2 67.4 H* ABG pO2 89.2 ABG PO2/FiO2 Ratio 1.98 ABG HCO3 29.1 H ABG O2 Saturation 95.2 ABG O2 Content 18.4 ABG Base Excess 0.2 A-a Gradient 155.0 Oxyhemoglobin 95.4 Carboxyhemoglobin 1.0 Methemoglobin 0.3 Reduced Hemoglobin 3.3 Total Hemoglobin 13.7 O2 Delivery Device Bipap O2 Liters/Min Not Reportable Vent Rate FiO2 45 Expiratory Pressure 8 Inspiratory Pressure 16 Sodium 138 Potassium 3.9 Chloride 102 Carbon Dioxide 33 H Anion Gap 3 L BUN 17 Creatinine 0.87 Estim Creat Clear Calc 51 Estimated GFR > 60 Glucose 134 H POC Capillary Glucose Calcium 7.6 L Phosphorus 3.3 Magnesium 2.2 Total Bilirubin 0.5 AST 48 H ALT 32 Alkaline Phosphatase 67 Total Protein 7.0 Albumin 3.4 L Urine Color Urine Appearance Urine pH Ur Specific [place] Urine Protein Urine Glucose (UA) Urine Ketones Ur Blood (Man) Urine Nitrate Urine Bilirubin Urine Urobilinogen Add Ur Microanalysis Leukocyte Esterase Rfl Urine RBC Urine WBC Ur Squamous Epith Cells Urine Bacteria Urine Casts Nasal MRSA (PCR) Quality VTE Prophylaxis VTE prophylaxis: pharmacologic ordered Hospitalist MIPS Advance Care Plan I have confirmed that the patient's Advanced Care Plan is present, code status is documented, or surrogate decision maker is listed in patient medical record.: Yes Medication Reconciliation I have utilized all available resources to obtain, update and review the patients current medications (includes all prescriptions, OTC, herbals, cannabis, and nutritional supplements).: Yes
[2025-01-04] MEDS: predniSONE 20 MG TABLET 40 MG PO (09:28)
[2025-01-04] MEDS: LEVOTHYROXINE SODIUM 100 MCG, LEVOTHYROXINE SODIUM 75 MCG 175 MCG PO (09:28)
[2025-01-04] MEDS: ENOXAPARIN 40 MG/0.4 ML SYRINGE SUB-Q (09:28)
[2025-01-04] MEDS: PANTOPRAZOLE SODIUM IV 40 MG VIAL IV PUSH (09:28)
[2025-01-04] MEDS: OSELTAMIVIR PHOSPHATE 30 MG CAPSULE PO ×2 (09:29→20:37)
--- NOTE | 2025-01-04 09:35 | WPDCNINT ---
Assessment and Plan Assessment and plan (1) Septic shock: Code(s): A41.9 - Sepsis, unspecified organism; R65.21 - Severe sepsis with septic shock Status: Acute Assessment and Plan: Septic shock secondary to pneumonia, influenza and UTI Blood and urine cultures Continue Levophed titration to maintain mean arterial pressure Hold further crystalloids as patient has received amount of IV fluids and patient likely has congestive heart failure (2) Acute and chronic respiratory failure: Code(s): J96.20 - Acute and chronic respiratory failure, unspecified whether with hypoxia or hypercapnia Status: Acute Assessment and Plan: Acute on chronic respiratory failure with hypercapnia and hypoxia secondary to pneumonia, influenza Patient likely has chronic hypercapnic respiratory failure secondary to obesity hypoventilation syndrome and possibly COPD as patient has history of smoking Currently on BiPAP ABG reviewed at Hold further crystalloids Steroids and bronchodilator Tamiflu and isolation for influenza Empiric antibiotics -cefepime doxycycline. Will hold vancomycin has nasal MRSA screen was negative (3) Pneumonia: Code(s): J18.9 - Pneumonia, unspecified organism Status: Acute Assessment and Plan: See above (4) Congestive heart failure: Code(s): I50.9 - Heart failure, unspecified Status: Acute Assessment and Plan: Lower extremity edema with chronic venous stasis changes. Check echo Check BNP (5) Diabetes: Code(s): E11.9 - Type 2 diabetes mellitus without complications Status: Acute Assessment and Plan: npo SSI (6) UTI (urinary tract infection): Code(s): N39.0 - Urinary tract infection, site not specified Status: Acute Assessment and Plan: See above (7) Flu: Code(s): J11.1 - Influenza due to unidentified influenza virus with other respiratory manifestations Status: Acute Assessment and Plan: See above (8) Hypothyroidism: Code(s): E03.9 - Hypothyroidism, unspecified Status: Acute Assessment and Plan: Continue levothyroxine. Check TSH Plan DVT prophylaxis -Lovenox Stress ulcer prophylaxis -Protonix Nutrition -npo Code Status -DNR DNI Spoke to patient's daughter at bedside and patient and discussed patient's current status including influenza, pneumonia, septic shock, acute respiratory failure. I also discussed goals of care and code status. Patient does not want to go on mechanical ventilation or desire CPR in the event of cardiac arrest. Patient's daughter is in agreement and respect patient's wishes and increase the patient would not want to go on mechanical ventilation even if her respiratory status worsens on BiPAP. They want to continue with noninvasive mechanical ventilation and current treatment but do not desire CPR or resuscitation in the event of cardiac arrest or invasive mechanical ventilation in case respiratory status deteriorates. Total Critical Care Time - 35 minutes Due to a high probability of clinically significant, life threatening deterioration, the patient required my highest level of preparedness to intervene emergently and I personally spent this critical care time directly and personally managing the patient. This critical care time included obtaining a history; examining the patient; pulse oximetry; ordering and review of studies; arranging urgent treatment with development of a management plan; evaluation of patient's response to treatment; frequent reassessment; and discussions with other providers. It was exclusive of separately billable procedures and treating other patients and teaching time. Please see Assessment and Plan section and the rest of the note for further information on patient assessment and treatment Chart Calculator Consult Note Consult date: 01/04/25 Reason for consult: Septic shock, respiratory failure HPI: Julisa Rocha is a 79 year old female with morbid obesity and unclear other past medical history was brought to the ER yesterday with chief complaint of weakness and shortness of breath. Patient's daughter provided history in the ER and stated the patient was having cough and shortness of breath which had been getting worse over last couple days. She got so weak and hence she was transferred to the hospital. She also complained of chills fatigue and productive cough. In the ER patient was found to be hypotensive. ABG showed hypercarbic and hypoxic respiratory failure. Mild elevation creatinine. She tested positive for influenza and CT chest showed pneumonia. Patient was given IV fluid bolus, started on IV antibiotic and vasopressors, central venous catheter was placed. Due to her obesity noninvasive blood pressure monitoring was in adequate hence an arterial line was placed. Patient was placed on BiPAP and admitted to ICU for further evaluation management. Patient was drowsy at that time. This morning patient continues to be on BiPAP but is much more awake. She is able to follow commands and answer some questions. She does admit to having cough but denies any chest pain shortness a breath nausea vomiting abdominal pain. Complete review of system was not obtainable as patient is on BiPAP. She does follow commands with all 4 extremities. Review of Systems Review of Systems: CORA unobtainable: Yes unobtainable due to medical condition and unobtainable due to mental status [facility] [place] Past Medical History Medical History (Updated 01/04/25 @ 09:56 by Kennedy Disla MD) Hypothyroidism Hypertension Diabetes Family History Family History Sibling Diabetes mellitus Social History Social History Smoking packs per day: 1 Smoking cigarettes per day: 20.0 Smoking status: Current every day smoker Tobacco type: cigarettes Second hand tobacco smoke exposure: Yes Alcohol intake: never Substance use: never Substance use type: does not use Spiritual care concerns: Yes Meds Home Medications and Allergies Home Medications ?Medication ?Instructions ?Recorded ?Confirmed ?Type hydrochlorothiazide 12.5 mg tablet 12.5 mg PO DAILY 05/17/22 01/03/25 History levothyroxine 112 mcg tablet 175 mcg PO DAILY 05/17/22 01/03/25 History losartan 100 mg tablet 50 mg PO DAILY 05/17/22 01/03/25 History nebulizer and compressor #1 ea 05/19/22 01/03/25 Rx glimepiride 1 mg tablet 1 mg PO DAILY 01/03/25 01/03/25 History Allergies Allergy/AdvReac Type Severity Reaction Status Date / Time Penicillins Allergy Mild Unknown Verified 01/03/25 17:53 Sulfa (Sulfonamide Allergy Mild Unknown Verified 01/03/25 17:53 Antibiotics) Vital Signs Vital Signs - 24 hr 01/03/25 10:26 01/03/25 10:27 01/03/25 10:38 Temperature 36.6 C Pulse Rate 80 71 Respiratory Rate 28 H 24 H Blood Pressure 93/57 L Pulse Oximetry 96 94 Oxygen Delivery BiPAP BiPAP BiPAP Fraction of Inspired Oxygen 01/03/25 11:05 01/03/25 11:44 01/03/25 11:45 Temperature Pulse Rate 78 79 Respiratory Rate 21 H 24 H Blood Pressure 76/40 L Pulse Oximetry 98 Oxygen Delivery BiPAP Fraction of Inspired Oxygen 01/03/25 11:46 01/03/25 11:49 01/03/25 11:51 Temperature Pulse Rate 75 84 Respiratory Rate 21 H 16 Blood Pressure Pulse Oximetry Oxygen Delivery BiPAP Fraction of Inspired Oxygen 01/03/25 11:52 01/03/25 12:20 01/03/25 12:22 Temperature Pulse Rate 90 86 Respiratory Rate 27 H 27 H Blood Pressure 95/64 L Pulse Oximetry 98 Oxygen Delivery BiPAP Fraction of Inspired Oxygen 01/03/25 12:23 01/03/25 12:25 01/03/25 12:44 Temperature Pulse Rate 85 87 74 Respiratory Rate 25 H 21 H Blood Pressure Pulse Oximetry Oxygen Delivery Fraction of Inspired Oxygen 01/03/25 13:09 01/03/25 13:10 01/03/25 13:38 Temperature 36.7 C Pulse Rate 76 80 78 Respiratory Rate 15 20 16 Blood Pressure Pulse Oximetry 94 98 Oxygen Delivery BiPAP Fraction of Inspired Oxygen 01/03/25 14:01 01/03/25 14:08 01/03/25 14:10 Temperature Pulse Rate 78 74 78 Respiratory Rate 23 H 17 18 Blood Pressure Pulse Oximetry 90 94 95 Oxygen Delivery Fraction of Inspired Oxygen 01/03/25 14:15 01/03/25 14:28 01/03/25 14:30 Temperature Pulse Rate 75 69 Respiratory Rate 25 H 19 26 H Blood Pressure Pulse Oximetry 97 96 95 Oxygen Delivery Fraction of Inspired Oxygen 01/03/25 14:35 01/03/25 14:49 01/03/25 14:50 Temperature 36.8 C 36.8 C Pulse Rate 78 70 76 Respiratory Rate 19 20 21 H Blood Pressure Pulse Oximetry 92 97 Oxygen Delivery Fraction of Inspired Oxygen 01/03/25 14:55 01/03/25 15:00 01/03/25 15:01 Temperature 36.9 C 37.0 C Pulse Rate 79 74 Respiratory Rate 20 25 H Blood Pressure Pulse Oximetry 100 99 88 L Oxygen Delivery BiPAP Fraction of Inspired Oxygen 01/03/25 15:08 01/03/25 15:10 01/03/25 15:12 Temperature 37.0 C 37.0 C Pulse Rate 69 89 68 Respiratory Rate 18 18 Blood Pressure 106/37 L Pulse Oximetry 98 Oxygen Delivery Fraction of Inspired Oxygen 01/03/25 15:15 01/03/25 15:19 01/03/25 15:20 Temperature 37.0 C 37.1 C Pulse Rate 67 68 66 Respiratory Rate 21 H 20 Blood Pressure 92/45 L 92/45 L Pulse Oximetry 94 98 Oxygen Delivery Fraction of Inspired Oxygen 01/03/25 15:20 01/03/25 15:21 01/03/25 15:22 Temperature 37.1 C 37.1 C Pulse Rate 67 69 65 Respiratory Rate 21 H 15 Blood Pressure 87/48 L 102/38 L Pulse Oximetry 96 96 Oxygen Delivery Fraction of Inspired Oxygen 01/03/25 15:25 01/03/25 15:26 01/03/25 15:27 Temperature 37.1 C Pulse Rate 63 63 60 Respiratory Rate 21 H 21 H Blood Pressure 106/39 L Pulse Oximetry 96 96 Oxygen Delivery BiPAP Fraction of Inspired Oxygen 01/03/25 15:32 01/03/25 15:35 01/03/25 15:41 Temperature 37.1 C 37.1 C 37.1 C Pulse Rate 66 63 77 Respiratory Rate 22 H 22 H 10 L Blood Pressure 113/56 L 94/63 L Pulse Oximetry 95 95 97 Oxygen Delivery Fraction of Inspired Oxygen 01/03/25 16:05 01/03/25 16:07 01/03/25 16:10 Temperature 37.0 C 37.0 C Pulse Rate 69 64 59 L Respiratory Rate 21 H 22 H Blood Pressure 114/53 L 135/55 L Pulse Oximetry 96 97 Oxygen Delivery Fraction of Inspired Oxygen 01/03/25 16:16 01/03/25 16:20 01/03/25 16:32 Temperature 36.9 C 37.0 C 37.0 C Pulse Rate 69 64 59 L Respiratory Rate 23 H 20 14 Blood Pressure 107/48 L Pulse Oximetry 96 97 98 Oxygen Delivery Fraction of Inspired Oxygen 01/03/25 16:40 01/03/25 16:46 01/03/25 16:50 Temperature 37.0 C 37.0 C 37.0 C Pulse Rate 60 61 60 Respiratory Rate 21 H 21 H 18 Blood Pressure 106/50 L Pulse Oximetry 97 97 98 Oxygen Delivery Fraction of Inspired Oxygen 01/03/25 16:55 01/03/25 17:01 01/03/25 17:03 Temperature 37.0 C 37.0 C 37.0 C Pulse Rate 59 L 59 L 59 L Respiratory Rate 22 H 18 20 Blood Pressure 103/47 L Pulse Oximetry 98 98 98 Oxygen Delivery Fraction of Inspired Oxygen 01/03/25 17:27 01/03/25 17:41 01/03/25 18:00 Temperature Pulse Rate 70 60 76 Respiratory Rate 24 H Blood Pressure 119/46 L Pulse Oximetry 92 Oxygen Delivery BiPAP Fraction of Inspired Oxygen 01/03/25 18:00 01/03/25 18:00 01/03/25 18:13 Temperature 37.2 C Pulse Rate 71 70 Respiratory Rate 20 Blood Pressure 110/54 L 118/47 L Pulse Oximetry 99 95 Oxygen Delivery BiPAP Fraction of Inspired Oxygen 50 01/03/25 19:08 01/03/25 20:00 01/03/25 20:00 Temperature Pulse Rate 70 53 L Respiratory Rate Blood Pressure 87/52 L 117/45 L Pulse Oximetry 95 Oxygen Delivery BiPAP Fraction of Inspired Oxygen 50 01/03/25 20:00 01/03/25 20:00 01/03/25 20:29 Temperature 37.3 C Pulse Rate 55 L 55 L 54 L Respiratory Rate 24 H 16 Blood Pressure 118/46 L Pulse Oximetry 95 97 Oxygen Delivery BiPAP Fraction of Inspired Oxygen 01/03/25 20:30 01/03/25 20:30 01/03/25 20:40 Temperature Pulse Rate 55 L 54 L Respiratory Rate Blood Pressure 127/49 L 127/49 L Pulse Oximetry 97 Oxygen Delivery BiPAP Fraction of Inspired Oxygen 45 01/03/25 21:00 01/03/25 21:35 01/03/25 21:50 Temperature Pulse Rate 56 L 59 L 54 L Respiratory Rate Blood Pressure 121/47 L 104/44 L 116/47 L Pulse Oximetry Oxygen Delivery Fraction of Inspired Oxygen 01/03/25 22:00 01/03/25 22:00 01/03/25 22:00 Temperature 37.4 C Pulse Rate 50 L 54 L 54 L Respiratory Rate 24 H Blood Pressure 121/49 L 116/47 L Pulse Oximetry 94 Oxygen Delivery Fraction of Inspired Oxygen 01/03/25 22:25 01/03/25 22:50 01/04/25 00:00 Temperature 37.3 C Pulse Rate 56 L 56 L 54 L Respiratory Rate 22 H 24 H Blood Pressure 122/49 L 117/48 L Pulse Oximetry 94 94 Oxygen Delivery BiPAP Fraction of Inspired Oxygen 01/04/25 00:00 01/04/25 00:00 01/04/25 00:00 Temperature Pulse Rate 55 L 57 L Respiratory Rate Blood Pressure 116/47 L Pulse Oximetry 94 Oxygen Delivery BiPAP Fraction of Inspired Oxygen 45 01/04/25 02:00 01/04/25 02:00 01/04/25 02:00 Temperature 37.3 C Pulse Rate 60 59 L 57 L Respiratory Rate 26 H Blood Pressure 113/47 L 118/48 L Pulse Oximetry 96 Oxygen Delivery Fraction of Inspired Oxygen 01/04/25 02:14 01/04/25 02:14 01/04/25 02:19 Temperature Pulse Rate 52 L 52 L 75 Respiratory Rate 22 H 22 H 22 H Blood Pressure Pulse Oximetry 95 Oxygen Delivery BiPAP Fraction of Inspired Oxygen 01/04/25 02:33 01/04/25 04:00 01/04/25 04:00 Temperature Pulse Rate 70 54 L Respiratory Rate Blood Pressure 94/39 L 120/49 L Pulse Oximetry 96 Oxygen Delivery BiPAP Fraction of Inspired Oxygen 45 01/04/25 04:00 01/04/25 04:00 01/04/25 05:43 Temperature 37.2 C Pulse Rate 63 54 L 59 L Respiratory Rate 24 H 18 Blood Pressure 114/47 L Pulse Oximetry 96 96 Oxygen Delivery BiPAP Fraction of Inspired Oxygen 01/04/25 06:00 01/04/25 06:00 01/04/25 06:25 Temperature 37.1 C Pulse Rate 65 55 L 63 Respiratory Rate 24 H Blood Pressure 105/56 L 118/48 L 111/45 L Pulse Oximetry 98 Oxygen Delivery Fraction of Inspired Oxygen 01/04/25 06:32 01/04/25 06:32 01/04/25 07:28 Temperature Pulse Rate 64 64 68 Respiratory Rate Blood Pressure 118/48 L 118/48 L 122/50 L Pulse Oximetry Oxygen Delivery Fraction of Inspired Oxygen 01/04/25 07:40 01/04/25 07:42 01/04/25 07:42 Temperature Pulse Rate 62 62 62 Respiratory Rate 20 20 20 Blood Pressure Pulse Oximetry 98 98 Oxygen Delivery BiPAP BiPAP Fraction of Inspired Oxygen 45 01/04/25 07:50 01/04/25 08:00 01/04/25 08:01 Temperature 36.8 C Pulse Rate 67 59 L 60 Respiratory Rate 18 Blood Pressure 115/48 L 119/46 L 119/45 L Pulse Oximetry 96 Oxygen Delivery Fraction of Inspired Oxygen 01/04/25 08:01 01/04/25 08:15 01/04/25 08:30 Temperature Pulse Rate 67 58 L 70 Respiratory Rate 20 Blood Pressure 118/45 L 124/51 L Pulse Oximetry Oxygen Delivery Fraction of Inspired Oxygen 01/04/25 08:45 Temperature Pulse Rate 68 Respiratory Rate Blood Pressure 113/44 L Pulse Oximetry Oxygen Delivery Fraction of Inspired Oxygen Exam Narrative: General: Pt is alert awake and in NAD Lungs/Chest: Trachea central decreased BS B/L, No crackles or wheezing. Cardiac: RRR. Normal S1 S2. No murmurs Circulation: Feet are warm. She has bilateral chronic venous stasis changes Abdomen: Normal bowel sounds.. Soft. NT. ND. Extremities: No clubbing, cyanosis Warm, my pitting edema bilaterally : Shoemaker in place Neurologic: Follows commands with all and Moves all 4 extremities PERRL AO x2 Skin: No Rash Results Labs 01/04/25 06:18 01/04/25 06:18 Labs: Short CBC 01/04/25 Range/Units 06:18 WBC 15.3 H (4.5-10.0) K/mm3 Hgb 13.2 (12.0-15.0) g/dL Hct 42.6 (37.0-47.0) % Plt Count 171 (150-375) k/mm3 BMP 01/03/25 01/04/25 19:41 06:18 Sodium 135 L 138 Potassium 3.8 3.9 Chloride 100 102 Carbon Dioxide 29 33 H BUN 19 H 17 Creatinine 0.91 0.87 Glucose 235 H 134 H Calcium 7.3 L 7.6 L Liver Function 01/04/25 Range/Units 06:18 Total Bilirubin 0.5 (0.2-1.3) mg/dL AST 48 H (14-36) U/L ALT 32 (6-35) U/L Alkaline Phosphatase 67 (38-126) U/L Albumin 3.4 L (3.5-5.1) g/dL Urine 01/03/25 Range/Units 14:37 Urine Color Yellow (Yellow) Urine Appearance Cloudy H (Clear) Urine pH 6.0 (5.0-9.0) Ur Specific [place] > 1.045 H (1.001-1.035) Urine Protein 2+ H (Negative) mg/dL Urine Glucose (UA) Negative (Negative) mg/dL Quality VTE Prophylaxis VTE prophylaxis: pharmacologic ordered Hospitalist MIPS Advance Care Plan I have confirmed that the patient's Advanced Care Plan is present, code status is documented, or surrogate decision maker is listed in patient medical record.: Yes Medication Reconciliation I have utilized all available resources to obtain, update and review the patients current medications (includes all prescriptions, OTC, herbals, cannabis, and nutritional supplements).: Yes
[2025-01-04 09:38] LABS: Alveolar/Arterial O2 Gradient 122.3 mmHg; Base Excess ABG 1.3 mEq/l (+/-2.0); Fractional Inspired Oxygen 40 %; HCO3 ABG 30.2 mEq/l (22.0-26.0); Oxygen Saturation ABG 94.7 % (95.0-100.0); Oxyhemoglobin 94.5 % THb (90.0-100.0); PO2 ABG 84.7 mmHg (80.0-100.0); PO2 FiO2 Ratio Arterial Blood 2.12 %; Total Hemoglobin 14.3 g/dL (12.0-18.0)
[2025-01-04 09:41] LABS: pH ABG 7.265 (7.350-7.450)
[2025-01-04 09:42] LABS: Device NON-INVASIVE VENT; Non-Invasive Inspiratory Pressure 18 CMH2O; Non-Invasive Vent Rate 16 /MIN; Site Drawn ARTLINE
[2025-01-04 09:43] LABS: Non-Invasive Expiratory Pressure 6 CMH2O
[2025-01-04] MEDS: CALCIUM GLUC 2,000 MG/NS 100ML 2,000 MG/100 ML BAG 100 MG IVPB (09:46)
[2025-01-04] MEDS: CEFEPIME 2 GM/NS 50 ML 2 GM/50 ML BAG IVPB ×2 (09:49→20:37)
[2025-01-04] MEDS: DOXYCYCLINE 100 MG/NS 100 ML 100 MG/100 ML BAG IVPB ×2 (09:52→20:37)
[2025-01-04 10:22] LABS: NT Pro B Type Natriuretic Pept 1300 pg/mL (19.9-100)
--- NOTE | 2025-01-04 10:38 | PM.CNPUL ---
Assessment and Plan Assessment and plan (1) Pneumonia of both lower lobes: Code(s): J18.9 - Pneumonia, unspecified organism Status: Acute (2) Acute hypercapnic respiratory failure: Code(s): J96.02 - Acute respiratory failure with hypercapnia Status: Acute Assessment and Plan: This 79-year-old female presented with symptoms indicative of a respiratory infection, with a chest CT revealing bilateral infiltrates consistent with pneumonia. The patient tested positive for influenza A. Arterial blood gases demonstrated predominantly acute respiratory acidosis, with an initial base excess of -2.2, suggesting slight metabolic acidosis or reduced metabolic compensation for the respiratory acidosis. Despite ventilatory support with BiPAP, respiratory acidosis persists. A chest X-ray raised the possibility of pulmonary edema, showing new infiltrates compared to previous imaging. Flow tracing on the BiPAP screen indicates a bronchospasm with an auto-PEEP effect. The patient was switched to BiPAP AVAPS mode to enhance minute ventilation, and repeat blood gases are planned after one hour on the new settings. Nebulized short-acting bronchodilator treatment will be administered within the next hour. A repeat chest X-ray is also indicated. The current antibiotic regimen is appropriate. Intubation may be necessary if respiratory acidosis continues despite BiPAP AVAPS treatment. Will continue to follow the patient along with you. (3) Congestive heart failure: Code(s): I50.9 - Heart failure, unspecified Status: Acute (4) Diabetes: Code(s): E11.9 - Type 2 diabetes mellitus without complications Status: Acute (5) Septic shock: Code(s): A41.9 - Sepsis, unspecified organism; R65.21 - Severe sepsis with septic shock Status: Acute History of Present Illness History of Present Illness Consult date: 01/04/25 Chief complaint: Septic Shock/PNA/FLU Narrative: This consultation for hypercapnic respiratory failure is based on information from the patient's chart, as she is currently in the intensive care unit receiving BiPAP support. The patient reportedly experienced illness for about a week, initially with flu-like symptoms and a cough, which progressively worsened to include shortness of breath. She experienced confusion one day prior to admission and was subsequently transferred from [facility]. A chest CT revealed bilateral pneumonia, with a large consolidation in the left lower lobe and a small infiltrate in the right upper lobe. Arterial blood gases indicated acute respiratory acidosis, with a pH of 7.19, pCO2 of 73.5 mmHg, and a minimally elevated bicarbonate level of 27.5 mEq/L. Due to hypotension, the patient was started on vasopressor support and given IV albumin after being transferred to the intensive care unit. A repeat chest X-ray conducted yesterday evening raised the possibility of pulmonary edema, as new interstitial infiltrates were noted compared to the initial X-ray. The patient remains on BiPAP support, with arterial blood gases over the last 24 hours showing persisting acute respiratory acidosis, with a pH around 7.25 and pCO2 in the mid to high 60s range. She is currently on BiPAP support with pressures set at 18/6 and a respiratory rate of 20. The patient reportedly did not experience fever, chills, or hemoptysis, and viral testing returned positive for influenza. Review of Systems Review of Systems: All systems reviewed & are unremarkable except as noted in HPI and below (HPI and below) [facility] Past Medical History Medical History (Updated 01/04/25 @ 09:56 by Kennedy Disla MD) Hypothyroidism Hypertension Diabetes Family History Family History Sibling Diabetes mellitus Social History Social History Smoking packs per day: 1 Smoking cigarettes per day: 20.0 Smoking status: Current every day smoker Tobacco type: cigarettes Second hand tobacco smoke exposure: Yes Alcohol intake: never Substance use: never Substance use type: does not use Spiritual care concerns: Yes Meds Home Medications and Allergies Home Medications ?Medication ?Instructions ?Recorded ?Confirmed ?Type hydrochlorothiazide 12.5 mg tablet 12.5 mg PO DAILY 05/17/22 01/03/25 History levothyroxine 112 mcg tablet 175 mcg PO DAILY 05/17/22 01/03/25 History losartan 100 mg tablet 50 mg PO DAILY 05/17/22 01/03/25 History nebulizer and compressor #1 ea 05/19/22 01/03/25 Rx glimepiride 1 mg tablet 1 mg PO DAILY 01/03/25 01/03/25 History Allergies Allergy/AdvReac Type Severity Reaction Status Date / Time Penicillins Allergy Mild Unknown Verified 01/03/25 17:53 Sulfa (Sulfonamide Allergy Mild Unknown Verified 01/03/25 17:53 Antibiotics) Vital Signs Vital Signs - 24 hr 01/03/25 11:05 01/03/25 11:44 01/03/25 11:45 Temperature Pulse Rate 78 79 Respiratory Rate 21 H 24 H Blood Pressure 76/40 L Pulse Oximetry 98 Oxygen Delivery BiPAP Fraction of Inspired Oxygen 01/03/25 11:46 01/03/25 11:49 01/03/25 11:51 Temperature Pulse Rate 75 84 Respiratory Rate 21 H 16 Blood Pressure Pulse Oximetry Oxygen Delivery BiPAP Fraction of Inspired Oxygen 01/03/25 11:52 01/03/25 12:20 01/03/25 12:22 Temperature Pulse Rate 90 86 Respiratory Rate 27 H 27 H Blood Pressure 95/64 L Pulse Oximetry 98 Oxygen Delivery BiPAP Fraction of Inspired Oxygen 01/03/25 12:23 01/03/25 12:25 01/03/25 12:44 Temperature Pulse Rate 85 87 74 Respiratory Rate 25 H 21 H Blood Pressure Pulse Oximetry Oxygen Delivery Fraction of Inspired Oxygen 01/03/25 13:09 01/03/25 13:10 01/03/25 13:38 Temperature 36.7 C Pulse Rate 76 80 78 Respiratory Rate 15 20 16 Blood Pressure Pulse Oximetry 94 98 Oxygen Delivery BiPAP Fraction of Inspired Oxygen 01/03/25 14:01 01/03/25 14:08 01/03/25 14:10 Temperature Pulse Rate 78 74 78 Respiratory Rate 23 H 17 18 Blood Pressure Pulse Oximetry 90 94 95 Oxygen Delivery Fraction of Inspired Oxygen 01/03/25 14:15 01/03/25 14:28 01/03/25 14:30 Temperature Pulse Rate 75 69 Respiratory Rate 25 H 19 26 H Blood Pressure Pulse Oximetry 97 96 95 Oxygen Delivery Fraction of Inspired Oxygen 01/03/25 14:35 01/03/25 14:49 01/03/25 14:50 Temperature 36.8 C 36.8 C Pulse Rate 78 70 76 Respiratory Rate 19 20 21 H Blood Pressure Pulse Oximetry 92 97 Oxygen Delivery Fraction of Inspired Oxygen 01/03/25 14:55 01/03/25 15:00 01/03/25 15:01 Temperature 36.9 C 37.0 C Pulse Rate 79 74 Respiratory Rate 20 25 H Blood Pressure Pulse Oximetry 100 99 88 L Oxygen Delivery BiPAP Fraction of Inspired Oxygen 01/03/25 15:08 01/03/25 15:10 01/03/25 15:12 Temperature 37.0 C 37.0 C Pulse Rate 69 89 68 Respiratory Rate 18 18 Blood Pressure 106/37 L Pulse Oximetry 98 Oxygen Delivery Fraction of Inspired Oxygen 01/03/25 15:15 01/03/25 15:19 01/03/25 15:20 Temperature 37.0 C 37.1 C Pulse Rate 67 68 66 Respiratory Rate 21 H 20 Blood Pressure 92/45 L 92/45 L Pulse Oximetry 94 98 Oxygen Delivery Fraction of Inspired Oxygen 01/03/25 15:20 01/03/25 15:21 01/03/25 15:22 Temperature 37.1 C 37.1 C Pulse Rate 67 69 65 Respiratory Rate 21 H 15 Blood Pressure 87/48 L 102/38 L Pulse Oximetry 96 96 Oxygen Delivery Fraction of Inspired Oxygen 01/03/25 15:25 01/03/25 15:26 01/03/25 15:27 Temperature 37.1 C Pulse Rate 63 63 60 Respiratory Rate 21 H 21 H Blood Pressure 106/39 L Pulse Oximetry 96 96 Oxygen Delivery BiPAP Fraction of Inspired Oxygen 01/03/25 15:32 01/03/25 15:35 01/03/25 15:41 Temperature 37.1 C 37.1 C 37.1 C Pulse Rate 66 63 77 Respiratory Rate 22 H 22 H 10 L Blood Pressure 113/56 L 94/63 L Pulse Oximetry 95 95 97 Oxygen Delivery Fraction of Inspired Oxygen 01/03/25 16:05 01/03/25 16:07 01/03/25 16:10 Temperature 37.0 C 37.0 C Pulse Rate 69 64 59 L Respiratory Rate 21 H 22 H Blood Pressure 114/53 L 135/55 L Pulse Oximetry 96 97 Oxygen Delivery Fraction of Inspired Oxygen 01/03/25 16:16 01/03/25 16:20 01/03/25 16:32 Temperature 36.9 C 37.0 C 37.0 C Pulse Rate 69 64 59 L Respiratory Rate 23 H 20 14 Blood Pressure 107/48 L Pulse Oximetry 96 97 98 Oxygen Delivery Fraction of Inspired Oxygen 01/03/25 16:40 01/03/25 16:46 01/03/25 16:50 Temperature 37.0 C 37.0 C 37.0 C Pulse Rate 60 61 60 Respiratory Rate 21 H 21 H 18 Blood Pressure 106/50 L Pulse Oximetry 97 97 98 Oxygen Delivery Fraction of Inspired Oxygen 01/03/25 16:55 01/03/25 17:01 01/03/25 17:03 Temperature 37.0 C 37.0 C 37.0 C Pulse Rate 59 L 59 L 59 L Respiratory Rate 22 H 18 20 Blood Pressure 103/47 L Pulse Oximetry 98 98 98 Oxygen Delivery Fraction of Inspired Oxygen 01/03/25 17:27 01/03/25 17:41 01/03/25 18:00 Temperature Pulse Rate 70 60 76 Respiratory Rate 24 H Blood Pressure 119/46 L Pulse Oximetry 92 Oxygen Delivery BiPAP Fraction of Inspired Oxygen 01/03/25 18:00 01/03/25 18:00 01/03/25 18:13 Temperature 37.2 C Pulse Rate 71 70 Respiratory Rate 20 Blood Pressure 110/54 L 118/47 L Pulse Oximetry 99 95 Oxygen Delivery BiPAP Fraction of Inspired Oxygen 50 01/03/25 19:08 01/03/25 20:00 01/03/25 20:00 Temperature Pulse Rate 70 53 L Respiratory Rate Blood Pressure 87/52 L 117/45 L Pulse Oximetry 95 Oxygen Delivery BiPAP Fraction of Inspired Oxygen 50 01/03/25 20:00 01/03/25 20:00 01/03/25 20:29 Temperature 37.3 C Pulse Rate 55 L 55 L 54 L Respiratory Rate 24 H 16 Blood Pressure 118/46 L Pulse Oximetry 95 97 Oxygen Delivery BiPAP Fraction of Inspired Oxygen 01/03/25 20:30 01/03/25 20:30 01/03/25 20:40 Temperature Pulse Rate 55 L 54 L Respiratory Rate Blood Pressure 127/49 L 127/49 L Pulse Oximetry 97 Oxygen Delivery BiPAP Fraction of Inspired Oxygen 45 01/03/25 21:00 01/03/25 21:35 01/03/25 21:50 Temperature Pulse Rate 56 L 59 L 54 L Respiratory Rate Blood Pressure 121/47 L 104/44 L 116/47 L Pulse Oximetry Oxygen Delivery Fraction of Inspired Oxygen 01/03/25 22:00 01/03/25 22:00 01/03/25 22:00 Temperature 37.4 C Pulse Rate 50 L 54 L 54 L Respiratory Rate 24 H Blood Pressure 121/49 L 116/47 L Pulse Oximetry 94 Oxygen Delivery Fraction of Inspired Oxygen 01/03/25 22:25 01/03/25 22:50 01/04/25 00:00 Temperature 37.3 C Pulse Rate 56 L 56 L 54 L Respiratory Rate 22 H 24 H Blood Pressure 122/49 L 117/48 L Pulse Oximetry 94 94 Oxygen Delivery BiPAP Fraction of Inspired Oxygen 01/04/25 00:00 01/04/25 00:00 01/04/25 00:00 Temperature Pulse Rate 55 L 57 L Respiratory Rate Blood Pressure 116/47 L Pulse Oximetry 94 Oxygen Delivery BiPAP Fraction of Inspired Oxygen 45 01/04/25 02:00 01/04/25 02:00 01/04/25 02:00 Temperature 37.3 C Pulse Rate 60 59 L 57 L Respiratory Rate 26 H Blood Pressure 113/47 L 118/48 L Pulse Oximetry 96 Oxygen Delivery Fraction of Inspired Oxygen 01/04/25 02:14 01/04/25 02:14 01/04/25 02:19 Temperature Pulse Rate 52 L 52 L 75 Respiratory Rate 22 H 22 H 22 H Blood Pressure Pulse Oximetry 95 Oxygen Delivery BiPAP Fraction of Inspired Oxygen 01/04/25 02:33 01/04/25 04:00 01/04/25 04:00 Temperature Pulse Rate 70 54 L Respiratory Rate Blood Pressure 94/39 L 120/49 L Pulse Oximetry 96 Oxygen Delivery BiPAP Fraction of Inspired Oxygen 45 01/04/25 04:00 01/04/25 04:00 01/04/25 05:43 Temperature 37.2 C Pulse Rate 63 54 L 59 L Respiratory Rate 24 H 18 Blood Pressure 114/47 L Pulse Oximetry 96 96 Oxygen Delivery BiPAP Fraction of Inspired Oxygen 01/04/25 06:00 01/04/25 06:00 01/04/25 06:25 Temperature 37.1 C Pulse Rate 65 55 L 63 Respiratory Rate 24 H Blood Pressure 105/56 L 118/48 L 111/45 L Pulse Oximetry 98 Oxygen Delivery Fraction of Inspired Oxygen 01/04/25 06:32 01/04/25 06:32 01/04/25 07:28 Temperature Pulse Rate 64 64 68 Respiratory Rate Blood Pressure 118/48 L 118/48 L 122/50 L Pulse Oximetry Oxygen Delivery Fraction of Inspired Oxygen 01/04/25 07:40 01/04/25 07:42 01/04/25 07:42 Temperature Pulse Rate 62 62 62 Respiratory Rate 20 20 20 Blood Pressure Pulse Oximetry 98 98 Oxygen Delivery BiPAP BiPAP Fraction of Inspired Oxygen 45 01/04/25 07:50 01/04/25 08:00 01/04/25 08:01 Temperature 36.8 C Pulse Rate 67 59 L 60 Respiratory Rate 18 Blood Pressure 115/48 L 119/46 L 119/45 L Pulse Oximetry 96 Oxygen Delivery Fraction of Inspired Oxygen 01/04/25 08:01 01/04/25 08:15 01/04/25 08:30 Temperature Pulse Rate 67 58 L 70 Respiratory Rate 20 Blood Pressure 118/45 L 124/51 L Pulse Oximetry Oxygen Delivery Fraction of Inspired Oxygen 01/04/25 08:45 01/04/25 09:56 01/04/25 10:00 Temperature Pulse Rate 68 69 73 Respiratory Rate 20 Blood Pressure 113/44 L 126/52 L Pulse Oximetry Oxygen Delivery Fraction of Inspired Oxygen 01/04/25 10:00 01/04/25 10:03 01/04/25 10:15 Temperature Pulse Rate 76 72 59 L Respiratory Rate 19 20 20 Blood Pressure 125/49 L Pulse Oximetry 92 96 Oxygen Delivery BiPAP Fraction of Inspired Oxygen Exam Narrative: GENERAL APPEARANCE: Well developed, well nourished, alert in mild respiratory distress while on BiPAP support. SKIN: Inspection of the skin reveals no rashes, ulcerations or petechiae. HEENT: Sclerae anicteric and conjunctivae pink and moist. Extraocular movements were intact and pupils were equal. NECK: Supple. There was no thyroid enlargement, and no tenderness, or masses were felt. LUNGS: Clear breath sounds upper chest anteriorly crackles lateral chest bilaterally CARDIAC: There was a regular rate and rhythm without any murmurs. ABDOMEN: Soft and nontender with normal bowel sounds. There was no organomegaly. LYMPH NODES: No lymphadenopathy was appreciated in the neck. EXTREMITIES: No cyanosis, clubbing. Mild edema and chronic stasis dermatitis changes lower extremities NEUROLOGIC: Patient moving all extremities, awake following commands. Results Laboratory Findings 01/04/25 06:18 01/04/25 06:18 ABG, PT/INR, D-dimer: ABG ABG pH 7.265 (7.350-7.450) L* 01/04/25 09:34 ABG pCO2 68.0 mmHg (35.0-45.0) H* 01/04/25 09:34 ABG pO2 84.7 mmHg (80.0-100.0) 01/04/25 09:34 ABG O2 Saturation 94.7 % (95.0-100.0) L 01/04/25 09:34 Abnormal lab findings: Abnormal Labs 01/03/25 01/03/25 01/03/25 11:31 14:37 15:20 WBC MCV MCHC ABG pH 7.285 L* 7.191 L* ABG pCO2 59.1 H 73.5 H* ABG HCO3 27.5 H 27.5 H ABG O2 Saturation 94.5 L 92.6 L Sodium Carbon Dioxide Anion Gap BUN Glucose POC Capillary Glucose Calcium AST NT-Pro-B Natriuret Pep Albumin Urine Appearance Cloudy H Ur Specific [place] > 1.045 H Urine Protein 2+ H Ur Blood (Man) 2+ H Urine Nitrate Positive H Urine Urobilinogen 2.0 H Leukocyte Esterase Rfl Trace H Urine RBC 3-5 H Urine WBC 11-20 H Urine Bacteria 4+ H 01/03/25 01/03/25 01/03/25 16:24 19:41 20:11 WBC MCV MCHC ABG pH 7.252 L* ABG pCO2 62.1 H* ABG HCO3 26.7 H ABG O2 Saturation 93.9 L Sodium 135 L Carbon Dioxide Anion Gap BUN 19 H Glucose 235 H POC Capillary Glucose 237 H Calcium 7.3 L AST NT-Pro-B Natriuret Pep Albumin Urine Appearance Ur Specific [place] Urine Protein Ur Blood (Man) Urine Nitrate Urine Urobilinogen Leukocyte Esterase Rfl Urine RBC Urine WBC Urine Bacteria 01/04/25 01/04/25 01/04/25 00:05 05:12 06:18 WBC 15.3 H MCV 101.4 H MCHC 31.0 L ABG pH 7.253 L* ABG pCO2 67.4 H* ABG HCO3 29.1 H ABG O2 Saturation Sodium Carbon Dioxide 33 H Anion Gap 3 L BUN Glucose 134 H POC Capillary Glucose 188 H Calcium 7.6 L AST 48 H NT-Pro-B Natriuret Pep 1300 H Albumin 3.4 L Urine Appearance Ur Specific [place] Urine Protein Ur Blood (Man) Urine Nitrate Urine Urobilinogen Leukocyte Esterase Rfl Urine RBC Urine WBC Urine Bacteria 01/04/25 09:34 WBC MCV MCHC ABG pH 7.265 L* ABG pCO2 68.0 H* ABG HCO3 30.2 H ABG O2 Saturation 94.7 L Sodium Carbon Dioxide Anion Gap BUN Glucose POC Capillary Glucose Calcium AST NT-Pro-B Natriuret Pep Albumin Urine Appearance Ur Specific [place] Urine Protein Ur Blood (Man) Urine Nitrate Urine Urobilinogen Leukocyte Esterase Rfl Urine RBC Urine WBC Urine Bacteria
[2025-01-04 11:16] LABS: Alveolar/Arterial O2 Gradient 67.3 mmHg; Base Excess ABG 1.6 mEq/l (+/-2.0); Fractional Inspired Oxygen 30 %; HCO3 ABG 30.1 mEq/l (22.0-26.0); Oxygen Content ABG 17.5 %vol (16.0-22.0); Oxygen Saturation ABG 90.9 % (95.0-100.0); Oxyhemoglobin 92.3 % THb (90.0-100.0); PO2 ABG 68.7 mmHg (80.0-100.0); PO2 FiO2 Ratio Arterial Blood 2.29 %; Total Hemoglobin 13.5 g/dL (12.0-18.0)
[2025-01-04 11:21] LABS: pH ABG 7.275 (7.350-7.450)
[2025-01-04 11:25] LABS: Device NON-INVASIVE VENT; PCO2 ABG 66.3 mmHg (35.0-45.0); Site Drawn ARTLINE
[2025-01-04 11:29] LABS: Non-Invasive Vent Rate 20 /MIN
[2025-01-04 11:32] LABS: Glucose Point of Care 99 mg/dl (65-105)
[2025-01-04] MEDS: methylPREDNISolone SOD SUCC 125 MG VIAL 80 MG IV PUSH ×2 (11:33→20:38)
[2025-01-04 12:00] LABS: Free T4 Free Thyroxine Reflex 0.64 ng/dL (0.78-2.19)
[2025-01-04 12:31] LABS: Alveolar/Arterial O2 Gradient 66.4 mmHg; Base Excess ABG 0.4 mEq/l (+/-2.0); Carboxyhemoglobin 0.8 % THb (0-2.0); Fractional Inspired Oxygen 28 %; Methemoglobin ABG 0.3 %THb (0-1.5); Oxygen Content ABG 16.7 %vol (16.0-22.0); Oxygen Saturation ABG 89.4 % (95.0-100.0); Oxyhemoglobin 90.4 % THb (90.0-100.0); PCO2 ABG 59.1 mmHg (35.0-45.0); PO2 ABG 63.5 mmHg (80.0-100.0); PO2 FiO2 Ratio Arterial Blood 2.27 %; Reduced Hemoglobin 8.5 %THb (0-5.0); Total Hemoglobin 13.1 g/dL (12.0-18.0)
[2025-01-04 12:37] LABS: Site Drawn ARTLINE; pH ABG 7.294 (7.350-7.450)
[2025-01-04 12:38] LABS: Device NASAL CANNULA
[2025-01-04] MEDS: ACETYLCYSTEINE 20% INHAL SOLN 800 MG/4 ML VIAL 200 MG INHALATION ×2 (14:07→20:11)
[2025-01-04 16:11] LABS: Glucose Point of Care 223 mg/dl (65-105)
[2025-01-04] MEDS: INSULIN ASPART (*BKC) 100 UNITS/ML SUB-Q (16:35)
[2025-01-04 20:10] LABS: Glucose Point of Care 179 mg/dl (65-105)
[2025-01-05] VITALS (36 sets, daily range): BP systolic 99–127; BP diastolic 39–58; PULSE 53–76; RESP 19–27; TEMP 36.6–37.1; O2SAT 90–95
[2025-01-05] MEDS: IPRATROPIUM 0.5 MG/ALBUTEROL SULFATE 2.5 MG AMPUL.NEB 3 ML INHALATION ×4 (01:39→20:10)
[2025-01-05] MEDS: ACETYLCYSTEINE 20% INHAL SOLN 800 MG/4 ML VIAL 200 MG INHALATION ×4 (01:39→20:10)
[2025-01-05] MEDS: CENTRAL LINE FLUSH 10 ML IV PUSH ×3 (06:09→21:01)
[2025-01-05] MEDS: LEVOTHYROXINE SODIUM 100 MCG, LEVOTHYROXINE SODIUM 75 MCG 175 MCG PO (06:09)
[2025-01-05 06:23] LABS: Hematocrit 40.8 % (37.0-47.0); Hemoglobin 12.7 g/dL (12.0-15.0); Immature Platelet Fraction Pct 3.2 % (0.9-11.2); Mean Corpuscular HGB Conc 31.1 g/dl (32-36); Mean Corpuscular Hemoglobin 31.4 pg (26-34); Mean Platelet Volume 10.1 fl (7.4-10.4); Platelet Count Result 144 k/mm3 (150-375); Red Blood Count 4.04 M/mm3 (4.2-5.4); Red Cell Distribution Width 13.5 % (11.5-14.5); White Blood Count 13.6 K/mm3 (4.5-10.0)
[2025-01-05 06:46] LABS: Alanine Aminotransferase 29 U/L (6-35); Albumin Level 3.2 g/dL (3.5-5.1); Alkaline Phosphatase 63 U/L (38-126); Anion Gap 5 mmol/L (4-12); Aspartate Amino Transferase 47 U/L (14-36); Bilirubin,Total 0.4 mg/dL (0.2-1.3); Blood Urea Nitrogen 18 mg/dL (7-17); Calcium 8.3 mg/dL (8.4-10.2); Carbon Dioxide 31 mmol/L (22-30); Chloride 101 mmol/L (98-107); Estimated CRCL calculation 51 ml/min; Estimated Glomerular Filt Rate > 60; Glucose 149 mg/dL (65-110); Magnesium 2.3 mg/dL (1.6-2.3); Potassium 3.9 mmol/L (3.4-5.0); Sodium 137 mmol/L (137-145)
[2025-01-05] MEDS: OSELTAMIVIR PHOSPHATE 30 MG CAPSULE PO ×2 (08:35→20:59)
[2025-01-05] MEDS: ENOXAPARIN 40 MG/0.4 ML SYRINGE SUB-Q (08:35)
[2025-01-05] MEDS: PANTOPRAZOLE SODIUM IV 40 MG VIAL IV PUSH (08:35)
[2025-01-05] MEDS: methylPREDNISolone SOD SUCC 125 MG VIAL 80 MG IV PUSH (08:36)
[2025-01-05] MEDS: CEFEPIME 2 GM/NS 50 ML 2 GM/50 ML BAG IVPB ×2 (08:38→21:01)
[2025-01-05] MEDS: DOXYCYCLINE 100 MG/NS 100 ML 100 MG/100 ML BAG IVPB ×2 (08:39→21:00)
--- NOTE | 2025-01-05 08:51 | WPDINTPN ---
Progress Note: A&P Assessment and Plan (1) Septic shock: Code(s): A41.9 - Sepsis, unspecified organism; R65.21 - Severe sepsis with septic shock Status: Acute Assessment and Plan: Septic shock secondary to pneumonia, influenza and UTI Blood and urine cultures Continue Levophed titration to maintain mean arterial pressure. Hopefully will be able to weaned off today Hold further crystalloids as patient has received amount of IV fluids and patient likely has congestive heart failure (2) Acute and chronic respiratory failure: Code(s): J96.20 - Acute and chronic respiratory failure, unspecified whether with hypoxia or hypercapnia Status: Acute Assessment and Plan: Acute on chronic respiratory failure with hypercapnia and hypoxia secondary to pneumonia, influenza Patient likely has chronic hypercapnic respiratory failure secondary to obesity hypoventilation syndrome and possibly COPD as patient has history of smoking Patient was on BiPAP which was switched to AVAPS mode by Pulmonary. Patient is now on nasal cannula Continue NIPPV p.r.n. and at night. Patient is DNR DNI and does not want intubation and invasive mechanical ventilation Hold further crystalloids Steroids and bronchodilator Tamiflu and isolation for influenza Empiric antibiotics -cefepime doxycycline. Off vancomycin has nasal MRSA screen was negative (3) Pneumonia: Code(s): J18.9 - Pneumonia, unspecified organism Status: Acute Assessment and Plan: See above (4) Congestive heart failure: Code(s): I50.9 - Heart failure, unspecified Status: Acute Assessment and Plan: Lower extremity edema with chronic venous stasis changes. BNP 1300 Echo Summary 1. Complete two-dimensional, color flow and Doppler transthoracic echocardiogram is performed. 2. Left ventricular chamber dimension is normal. 3. Left ventricular systolic function is normal, estimated at 60-65%. 4. The left ventricular diastolic function is abnormal. 5. E/e' 10 is mildly elevated. 6. There is mild aortic valve sclerosis. 7. There is moderate tricuspid valve regurgitation. 8. No pulmonary hypertension, estimated pulmonary arterial systolic pressure is 36 mmHg. Hold further fluid (5) Diabetes: Code(s): E11.9 - Type 2 diabetes mellitus without complications Status: Acute Assessment and Plan: Advance diet to diabetic SSI (6) UTI (urinary tract infection): Code(s): N39.0 - Urinary tract infection, site not specified Status: Acute Assessment and Plan: See above (7) Flu: Code(s): J11.1 - Influenza due to unidentified influenza virus with other respiratory manifestations Status: Acute Assessment and Plan: See above (8) Hypothyroidism: Code(s): E03.9 - Hypothyroidism, unspecified Status: Acute Assessment and Plan: Continue levothyroxine. Her TSH is very high and free T4 low. Patient is on high dose of levothyroxine. I am not sure of complaints with medication. Considering her old age I will continue with current dose at this time and not further increased Plan DVT prophylaxis -Lovenox Stress ulcer prophylaxis -Protonix Nutrition -advance diet Code Status -DNR DNI Remove arterial line 01/04 Spoke to patient's daughter at bedside and patient and discussed patient's current status including influenza, pneumonia, septic shock, acute respiratory failure. I also discussed goals of care and code status. Patient does not want to go on mechanical ventilation or desire CPR in the event of cardiac arrest. Patient's daughter is in agreement and respect patient's wishes and increase the patient would not want to go on mechanical ventilation even if her respiratory status worsens on BiPAP. They want to continue with noninvasive mechanical ventilation and current treatment but do not desire CPR or resuscitation in the event of cardiac arrest or invasive mechanical ventilation in case respiratory status deteriorates. Total Critical Care Time - 35 minutes Due to a high probability of clinically significant, life threatening deterioration, the patient required my highest level of preparedness to intervene emergently and I personally spent this critical care time directly and personally managing the patient. This critical care time included obtaining a history; examining the patient; pulse oximetry; ordering and review of studies; arranging urgent treatment with development of a management plan; evaluation of patient's response to treatment; frequent reassessment; and discussions with other providers. It was exclusive of separately billable procedures and treating other patients and teaching time. Please see Assessment and Plan section and the rest of the note for further information on patient assessment and treatment Subjective Date/time seen: 01/05/25 Overnight events reviewed. Afebrile Patient wore BiPAP overnight but currently on 3 L nasal cannula. She states she feels much better and denies any new complaints. She states her cough has improved although still present. She denies feeling short of breath. She denies any pain in chest or abdomen. No nausea vomiting. She tolerating clear liquid diet. She is currently on 3 mcg of Levophed. Acceptable urine output All other systems were reviewed and were negative Review of Systems Review of Systems: All systems reviewed & are unremarkable except as noted in HPI and below (HPI) Exam Narrative: General: Pt is alert awake and in NAD Lungs/Chest: Trachea central course BS B/L, few bibasilar crackles no wheezing Cardiac: RRR. Normal S1 S2. No murmurs Circulation: Feet are warm. She has bilateral chronic venous stasis changes Abdomen: Normal bowel sounds.. Soft. NT. ND. Extremities: No clubbing, cyanosis Warm, mild pitting edema bilaterally : Shoemaker in place Neurologic: Follows commands with all and Moves all 4 extremities PERRL AO x3 Skin: No Rash Objective Data Vital Signs Vital Signs: Vital Signs - 24 hr 01/04/25 09:56 01/04/25 10:00 01/04/25 10:00 Temperature Pulse Rate 69 73 70 Respiratory Rate 20 Blood Pressure 126/52 L Pulse Oximetry Oxygen Delivery Oxygen Flow Rate Fraction of Inspired Oxygen 01/04/25 10:00 01/04/25 10:03 01/04/25 10:15 Temperature Pulse Rate 76 72 58 L Respiratory Rate 19 20 Blood Pressure 125/49 L 119/46 L Pulse Oximetry 92 96 Oxygen Delivery BiPAP Oxygen Flow Rate Fraction of Inspired Oxygen 01/04/25 10:15 01/04/25 11:38 01/04/25 12:00 Temperature Pulse Rate 59 L 72 71 Respiratory Rate 20 28 H Blood Pressure 114/46 L Pulse Oximetry 94 Oxygen Delivery Nasal Cannula Oxygen Flow Rate 2 Fraction of Inspired Oxygen 01/04/25 12:00 01/04/25 12:00 01/04/25 12:00 Temperature Pulse Rate 74 70 Respiratory Rate Blood Pressure 114/46 L Pulse Oximetry 92 Oxygen Delivery Nasal Cannula Oxygen Flow Rate 2 Fraction of Inspired Oxygen 01/04/25 12:00 01/04/25 13:14 01/04/25 13:30 Temperature 37.1 C Pulse Rate 68 63 70 Respiratory Rate 22 H Blood Pressure 114/46 L 115/45 L 117/45 L Pulse Oximetry 91 Oxygen Delivery Oxygen Flow Rate Fraction of Inspired Oxygen 01/04/25 14:00 01/04/25 14:00 01/04/25 14:00 Temperature Pulse Rate 65 66 65 Respiratory Rate Blood Pressure 110/41 L 110/40 L Pulse Oximetry 92 Oxygen Delivery Oxygen Flow Rate Fraction of Inspired Oxygen 01/04/25 14:11 01/04/25 14:11 01/04/25 14:26 Temperature Pulse Rate 65 83 Respiratory Rate 23 H 20 Blood Pressure Pulse Oximetry 91 Oxygen Delivery Nasal Cannula Oxygen Flow Rate 2 Fraction of Inspired Oxygen 01/04/25 15:54 01/04/25 15:56 01/04/25 16:00 Temperature Pulse Rate 83 70 Respiratory Rate Blood Pressure 113/41 L Pulse Oximetry 93 Oxygen Delivery Nasal Cannula Oxygen Flow Rate 3 Fraction of Inspired Oxygen 01/04/25 16:00 01/04/25 16:00 01/04/25 16:15 Temperature 36.9 C Pulse Rate 69 63 64 Respiratory Rate 25 H Blood Pressure 113/41 L 105/38 L Pulse Oximetry 93 Oxygen Delivery Oxygen Flow Rate Fraction of Inspired Oxygen 01/04/25 16:30 01/04/25 16:54 01/04/25 17:48 Temperature Pulse Rate 64 71 Respiratory Rate 20 Blood Pressure 120/41 L Pulse Oximetry 93 92 Oxygen Delivery Nasal Cannula Nasal Cannula Oxygen Flow Rate 2 3 Fraction of Inspired Oxygen 01/04/25 18:00 01/04/25 18:00 01/04/25 18:04 Temperature Pulse Rate 72 72 76 Respiratory Rate 24 H Blood Pressure 112/42 L 117/44 L Pulse Oximetry 94 Oxygen Delivery Oxygen Flow Rate Fraction of Inspired Oxygen 01/04/25 18:20 01/04/25 20:00 01/04/25 20:00 Temperature Pulse Rate 69 65 65 Respiratory Rate Blood Pressure 110/41 L 97/42 L 103/41 L Pulse Oximetry Oxygen Delivery Oxygen Flow Rate Fraction of Inspired Oxygen 01/04/25 20:00 01/04/25 20:00 01/04/25 20:11 Temperature Pulse Rate 65 Respiratory Rate Blood Pressure Pulse Oximetry 93 93 Oxygen Delivery Nasal Cannula Nasal Cannula Oxygen Flow Rate 3 3 Fraction of Inspired Oxygen 32 01/04/25 20:11 01/04/25 20:12 01/04/25 20:24 Temperature 37.3 C Pulse Rate 70 73 72 Respiratory Rate 20 20 20 Blood Pressure 115/46 L Pulse Oximetry 96 Oxygen Delivery Oxygen Flow Rate Fraction of Inspired Oxygen 01/04/25 20:27 01/04/25 22:00 01/04/25 22:00 Temperature 37.1 C Pulse Rate 68 66 65 Respiratory Rate 22 H Blood Pressure 100/39 L 110/42 L 106/39 L Pulse Oximetry 92 Oxygen Delivery Oxygen Flow Rate Fraction of Inspired Oxygen 01/04/25 22:00 01/04/25 22:23 01/04/25 22:30 Temperature Pulse Rate 65 72 Respiratory Rate 23 H Blood Pressure Pulse Oximetry 94 92 Oxygen Delivery BiPAP BiPAP Oxygen Flow Rate Fraction of Inspired Oxygen 30 01/05/25 00:00 01/05/25 00:00 01/05/25 00:00 Temperature 37.1 C Pulse Rate 59 L 61 Respiratory Rate 24 H Blood Pressure 117/47 L 122/48 L Pulse Oximetry 92 91 Oxygen Delivery BiPAP Oxygen Flow Rate Fraction of Inspired Oxygen 30 01/05/25 00:00 01/05/25 00:00 01/05/25 01:39 Temperature Pulse Rate 61 70 59 L Respiratory Rate 20 Blood Pressure 122/48 L Pulse Oximetry 94 Oxygen Delivery BiPAP Oxygen Flow Rate Fraction of Inspired Oxygen 01/05/25 01:39 01/05/25 01:40 01/05/25 01:49 Temperature Pulse Rate 59 L 71 68 Respiratory Rate 20 21 H Blood Pressure 120/54 L Pulse Oximetry Oxygen Delivery Oxygen Flow Rate Fraction of Inspired Oxygen 01/05/25 02:00 01/05/25 02:00 01/05/25 02:00 Temperature 36.8 C Pulse Rate 62 58 L 58 L Respiratory Rate 26 H Blood Pressure 111/42 L 117/45 L Pulse Oximetry 90 Oxygen Delivery Oxygen Flow Rate Fraction of Inspired Oxygen 01/05/25 02:35 01/05/25 02:50 01/05/25 03:05 Temperature Pulse Rate 58 L 56 L 55 L Respiratory Rate Blood Pressure 101/39 L 99/39 L 109/45 L Pulse Oximetry Oxygen Delivery Oxygen Flow Rate Fraction of Inspired Oxygen 01/05/25 03:45 01/05/25 03:50 01/05/25 04:00 Temperature Pulse Rate 54 L 57 L 55 L Respiratory Rate 24 H Blood Pressure 125/50 L 122/49 L 115/46 L Pulse Oximetry 93 Oxygen Delivery Oxygen Flow Rate Fraction of Inspired Oxygen 01/05/25 04:00 01/05/25 04:00 01/05/25 04:00 Temperature Pulse Rate 56 L 56 L Respiratory Rate Blood Pressure 121/48 L Pulse Oximetry 92 Oxygen Delivery BiPAP Oxygen Flow Rate Fraction of Inspired Oxygen 30 01/05/25 04:00 01/05/25 05:15 01/05/25 05:45 Temperature Pulse Rate 57 L 58 L 58 L Respiratory Rate Blood Pressure 120/48 L 127/51 L 110/49 L Pulse Oximetry Oxygen Delivery Oxygen Flow Rate Fraction of Inspired Oxygen 01/05/25 06:00 01/05/25 06:00 01/05/25 06:00 Temperature Pulse Rate 55 L 55 L 55 L Respiratory Rate 21 H Blood Pressure 119/47 L 119/47 L Pulse Oximetry 93 Oxygen Delivery Oxygen Flow Rate Fraction of Inspired Oxygen 01/05/25 08:00 01/05/25 08:00 01/05/25 08:00 Temperature 36.9 C Pulse Rate 60 60 Respiratory Rate 19 Blood Pressure 110/46 L 110/46 L Pulse Oximetry 92 93 Oxygen Delivery Nasal Cannula Oxygen Flow Rate 3 Fraction of Inspired Oxygen 01/05/25 08:30 Temperature Pulse Rate 60 Respiratory Rate Blood Pressure 112/45 L Pulse Oximetry Oxygen Delivery Oxygen Flow Rate Fraction of Inspired Oxygen Intake/Output Intake/Output: Intake & Output 01/02/25 01/03/25 01/04/25 01/05/25 23:59 23:59 23:59 23:59 Intake Total 4014.4 655.2 84.4 Output Total 1350 850 Balance 4014.4 -694.8 -765.6 Meds/Results Medications: Active Medications Generic Name Dose Route Start Last Admin Trade Name Freq PRN Reason Stop Dose Admin Acetylcysteine 200 mg 01/04/25 14:00 01/05/25 01:39 Acetylcysteine 20% Inhal Soln 800 Mg/4 Ml Vial INHALATION 200 mg Q6HRT DIANN Administration Albuterol/Ipratropium 3 ml 01/04/25 14:00 01/05/25 01:39 Ipratropium 0.5 Mg/Albuterol Sulfate 2.5 Mg Ampul.Neb 3 Ml INHALATION 3 ml Q6HRT DIANN Administration Dextrose 12.5 gm 01/04/25 00:51 Dextrose 50% 25 Gm/50 Ml Syringe IV PUSH PRN PRN Hypoglycemia Protocol Enoxaparin Sodium 40 mg 01/04/25 09:00 01/05/25 08:35 Enoxaparin 40 Mg/0.4 Ml Syringe SUB-Q 40 mg DAILY DIANN Administration Glucagon 1 mg 01/04/25 00:51 Glucagon For Inj 1 Mg Vial IM PRN PRN Hypoglycemia Protocol Glucose 15 gm 01/04/25 00:51 Glucose Oral Gel 15 Gm Of Glucse In 37.5 Gm Tube PO PRN PRN Hypoglycemia Protocol Doxycycline Hyclate 100 mg in 100 mls @ 100 mls/hr 01/03/25 22:00 01/05/25 08:39 Vibramycin 100 Mg/Ns 100 Ml IVPB 01/08/25 21:59 100 mls/hr Q12HR DIANN Administration Dextrose 1,000 mls @ 100 mls/hr 01/04/25 00:51 Dextrose 5% 1,000 Ml IVPB PRN PRN Hypoglycemia Protocol Norepinephrine Bitartrate 8 mg in 250 mls @ 9.375 mls/hr 01/04/25 04:10 01/05/25 08:30 Levophed 8 Mg/D5w 250 Ml IV CONT 2 mcg/min .Q24H DIANN 3.75 mls/hr Titration Protocol 5 MCG/MIN Cefepime HCl 2 gm in 50 mls @ 100 mls/hr 01/04/25 09:00 01/05/25 08:38 Maxipime 2 Gm/Ns 50 Ml IVPB 100 mls/hr Q12HR DIANN Administration Insulin Aspart 3 - 6 units 01/04/25 17:00 01/05/25 08:37 Insulin Aspart (*Bkc) 100 Units/Ml SUB-Q Not Given TIDWM DIANN Protocol Insulin Aspart 1 - 3 units 01/04/25 21:00 01/04/25 20:38 Insulin Aspart (*Bkc) 100 Units/Ml SUB-Q Not Given HS DIANN Protocol Levothyroxine Sodium 100 mcg/ 175 mcg 01/04/25 08:45 01/05/25 06:09 Levothyroxine Sodium 75 mcg PO 175 mcg DAILY@0630 DIANN Administration Methylprednisolone Sodium Succinate 80 mg 01/04/25 21:00 01/05/25 08:36 Methylprednisolone Sod Succ 125 Mg Vial IV PUSH 80 mg Q12H DIANN Administration Oseltamivir Phosphate 30 mg 01/03/25 21:00 01/05/25 08:35 Oseltamivir Phosphate 30 Mg Capsule PO 01/08/25 20:59 30 mg Q12HR DIANN Administration Pantoprazole Sodium 40 mg 01/04/25 09:00 01/05/25 08:35 Pantoprazole Sodium Iv 40 Mg Vial IV PUSH 40 mg QAM DIANN Administration Perflutren Lipid Microsphere 0 ml 01/04/25 09:42 Perflutren Lipid Microspheres 1.5 Ml Vial Diluted To 10 Ml Total Volume IV PUSH 01/07/25 09:42 ONCE PRN adequate visualization Protocol Sodium Chloride 10 ml 01/03/25 22:00 01/05/25 06:09 Central Line Flush IV PUSH 10 ml Q8HR DIANN Administration Sodium Chloride 20 ml 01/03/25 17:40 Central Line Flush IV PUSH PRN PRN after blood draws Radiology Results: ITS Impressions Chest CTA 01/03/25 13:40 IMPRESSION: 1. Bibasilar pneumonia. Pneumonia in the right upper lobe. 2. No pulmonary embolism. Head CT 01/03/25 16:01 Impression: No acute intracranial hemorrhage or suspicious mass effect. Chest X-Ray 01/05/25 06:21 Impression: Patchy left basilar airspace disease is suspicious for pneumonia. Suspected COPD or chronic interstitial change. Support line, as above. Labs Labs: Laboratory Results - last 24 hr 01/04/25 01/04/25 01/04/25 06:18 09:34 10:25 WBC RBC Hgb Hct MCV MCH MCHC RDW Plt Count MPV % Immature Plt Fraction Puncture Site Artline ABG pH 7.265 L* ABG pCO2 68.0 H* ABG pO2 84.7 ABG PO2/FiO2 Ratio 2.12 ABG HCO3 30.2 H ABG O2 Saturation 94.7 L ABG O2 Content 19.0 ABG Base Excess 1.3 A-a Gradient 122.3 Oxyhemoglobin 94.5 Carboxyhemoglobin Methemoglobin Reduced Hemoglobin Total Hemoglobin 14.3 O2 Delivery Device Non-invasive vent O2 Liters/Min Not Reportable Vent Rate 16 FiO2 40 Expiratory Pressure 6 Inspiratory Pressure 18 Sodium Potassium Chloride Carbon Dioxide Anion Gap BUN Creatinine Estim Creat Clear Calc Estimated GFR Glucose POC Capillary Glucose Calcium Magnesium Total Bilirubin AST ALT Alkaline Phosphatase NT-Pro-B Natriuret Pep 1300 H Total Protein Albumin TSH (Reflex) 32.800 H Free T4 0.64 L 01/04/25 01/04/25 01/04/25 11:10 11:17 12:28 WBC RBC Hgb Hct MCV MCH MCHC RDW Plt Count MPV % Immature Plt Fraction Puncture Site Artline Artline ABG pH 7.275 L* 7.294 L* ABG pCO2 66.3 H* 59.1 H ABG pO2 68.7 L 63.5 L ABG PO2/FiO2 Ratio 2.29 2.27 ABG HCO3 30.1 H 28.0 H ABG O2 Saturation 90.9 L 89.4 L ABG O2 Content 17.5 16.7 ABG Base Excess 1.6 0.4 A-a Gradient 67.3 66.4 Oxyhemoglobin 92.3 90.4 Carboxyhemoglobin 0.8 Methemoglobin 0.3 Reduced Hemoglobin 8.5 H Total Hemoglobin 13.5 13.1 O2 Delivery Device Non-invasive vent Nasal cannula O2 Liters/Min Not Reportable 2.0 Vent Rate 20 FiO2 30 28 Expiratory Pressure Not Reportable Inspiratory Pressure Not Reportable Sodium Potassium Chloride Carbon Dioxide Anion Gap BUN Creatinine Estim Creat Clear Calc Estimated GFR Glucose POC Capillary Glucose 99 Calcium Magnesium Total Bilirubin AST ALT Alkaline Phosphatase NT-Pro-B Natriuret Pep Total Protein Albumin TSH (Reflex) Free T4 01/04/25 01/04/25 01/05/25 15:46 20:07 06:00 WBC 13.6 H RBC 4.04 L Hgb 12.7 Hct 40.8 MCV 101.0 H MCH 31.4 MCHC 31.1 L RDW 13.5 Plt Count 144 L MPV 10.1 % Immature Plt Fraction 3.2 Puncture Site ABG pH ABG pCO2 ABG pO2 ABG PO2/FiO2 Ratio ABG HCO3 ABG O2 Saturation ABG O2 Content ABG Base Excess A-a Gradient Oxyhemoglobin Carboxyhemoglobin Methemoglobin Reduced Hemoglobin Total Hemoglobin O2 Delivery Device O2 Liters/Min Vent Rate FiO2 Expiratory Pressure Inspiratory Pressure Sodium 137 Potassium 3.9 Chloride 101 Carbon Dioxide 31 H Anion Gap 5 BUN 18 H Creatinine 0.87 Estim Creat Clear Calc 51 Estimated GFR > 60 Glucose 149 H POC Capillary Glucose 223 H 179 H Calcium 8.3 L Magnesium 2.3 Total Bilirubin 0.4 AST 47 H ALT 29 Alkaline Phosphatase 63 NT-Pro-B Natriuret Pep Total Protein 7.0 Albumin 3.2 L TSH (Reflex) Free T4 Quality VTE Prophylaxis VTE prophylaxis: pharmacologic ordered
[2025-01-05 09:31] LABS: Glucose Point of Care 128 mg/dl (65-105)
--- NOTE | 2025-01-05 09:52 | P.PNPL_ITS ---
Progress Note: A&P Assessment and Plan (1) Acute exacerbation of chronic obstructive pulmonary disease (COPD): Code(s): J44.1 - Chronic obstructive pulmonary disease with (acute) exacerbation Status: Acute (2) Acute hypercapnic respiratory failure: Code(s): J96.02 - Acute respiratory failure with hypercapnia Status: Acute Assessment and Plan: This 79-year-old female presented with symptoms indicative of a respiratory infection. A chest CT scan revealed bilateral infiltrates consistent with pneumonia, and the patient tested positive for influenza A. Arterial blood gases indicated acute respiratory acidosis, with an initial base excess of -2.2, suggesting slight metabolic acidosis or reduced metabolic compensation. Despite receiving ventilatory support with BiPAP, respiratory acidosis persisted. The patient was subsequently placed on just supplemental oxygen via nasal cannula, and aggressive pulmonary toilet was initiated due to increased bronchial secretions. While on supplemental oxygen, the patient managed to maintain a lower pCO2. Overnight, she was placed back on BiPAP support. On today's examination, her respiratory status is much improved. The patient is fully awake and not experiencing shortness of breath while on supplemental oxygen, and auscultation revealed less chest congestion. It appears that the patient has underlying COPD, primarily due to chronic bronchitis, with increased bronchial secretions contributing to sustained hypercapnia despite the increased minute ventilation provided by BiPAP. Following the clearance of bronchial secretions, the patient?s respiratory acidosis improved. Plan: Continue the current antibiotic regimen and administer Solu-Medrol 80 mg twice daily today. Transition the patient to oral prednisone starting tomorrow morning. Perform arterial blood gases this morning. Continue BiPAP support at night. The case has been discussed with the hospitalist. (3) Pneumonia: Code(s): J18.9 - Pneumonia, unspecified organism Status: Acute (4) Diabetes: Code(s): E11.9 - Type 2 diabetes mellitus without complications Status: Acute (5) Flu: Code(s): J11.1 - Influenza due to unidentified influenza virus with other respiratory manifestations Status: Acute Subjective Date/time seen: 01/05/25 09:52 Interval history: Patient doing better this a.m.. She has no new respiratory symptoms. BiPAP support was discontinued yesterday around noon time and patient was encouraged to cough to get rid of increase secretions. In addition she received aggressive pulmonary toilet treatment. Repeat arterial blood gases while the patient was off BiPAP support showed improvement. Overnight she was placed back on BiPAP support. Currently this a.m. she has less shortness of breath and less chest congestion. Review of Systems Review of Systems: All systems reviewed & are unremarkable except as noted in HPI and below (HPI and below) Exam Narrative: GENERAL APPEARANCE: Well developed, well nourished, alert in mild respiratory d istress while on room air SKIN: Inspection of the skin reveals no rashes, ulcerations or petechiae. HEENT: Sclerae anicteric and conjunctivae pink and moist. Extraocular movements were intact and pupils were equal. NECK: Supple. There was no thyroid enlargement, and no tenderness, or masses were felt. LUNGS: Clear breath sounds upper chest anteriorly CARDIAC: There was a regular rate and rhythm without any murmurs. ABDOMEN: Soft and nontender with normal bowel sounds. There was no organomegaly. LYMPH NODES: No lymphadenopathy was appreciated in the neck. EXTREMITIES: No cyanosis, clubbing. Mild edema and chronic stasis dermatitis changes lower extremities NEUROLOGIC: Patient moving all extremities, awake following commands. Objective Data Vital Signs Vital Signs: Vital Signs - 24 hr 01/04/25 09:56 01/04/25 10:00 01/04/25 10:00 Temperature Pulse Rate 69 73 70 Respiratory Rate 20 Blood Pressure 126/52 L Pulse Oximetry Oxygen Delivery Oxygen Flow Rate Fraction of Inspired Oxygen 01/04/25 10:00 01/04/25 10:03 01/04/25 10:15 Temperature Pulse Rate 76 72 58 L Respiratory Rate 19 20 Blood Pressure 125/49 L 119/46 L Pulse Oximetry 92 96 Oxygen Delivery BiPAP Oxygen Flow Rate Fraction of Inspired Oxygen 01/04/25 10:15 01/04/25 11:38 01/04/25 12:00 Temperature Pulse Rate 59 L 72 71 Respiratory Rate 20 28 H Blood Pressure 114/46 L Pulse Oximetry 94 Oxygen Delivery Nasal Cannula Oxygen Flow Rate 2 Fraction of Inspired Oxygen 01/04/25 12:00 01/04/25 12:00 01/04/25 12:00 Temperature Pulse Rate 74 70 Respiratory Rate Blood Pressure 114/46 L Pulse Oximetry 92 Oxygen Delivery Nasal Cannula Oxygen Flow Rate 2 Fraction of Inspired Oxygen 01/04/25 12:00 01/04/25 13:14 01/04/25 13:30 Temperature 37.1 C Pulse Rate 68 63 70 Respiratory Rate 22 H Blood Pressure 114/46 L 115/45 L 117/45 L Pulse Oximetry 91 Oxygen Delivery Oxygen Flow Rate Fraction of Inspired Oxygen 01/04/25 14:00 01/04/25 14:00 01/04/25 14:00 Temperature Pulse Rate 65 66 65 Respiratory Rate Blood Pressure 110/41 L 110/40 L Pulse Oximetry 92 Oxygen Delivery Oxygen Flow Rate Fraction of Inspired Oxygen 01/04/25 14:11 01/04/25 14:11 01/04/25 14:26 Temperature Pulse Rate 65 83 Respiratory Rate 23 H 20 Blood Pressure Pulse Oximetry 91 Oxygen Delivery Nasal Cannula Oxygen Flow Rate 2 Fraction of Inspired Oxygen 01/04/25 15:54 01/04/25 15:56 01/04/25 16:00 Temperature Pulse Rate 83 70 Respiratory Rate Blood Pressure 113/41 L Pulse Oximetry 93 Oxygen Delivery Nasal Cannula Oxygen Flow Rate 3 Fraction of Inspired Oxygen 01/04/25 16:00 01/04/25 16:00 01/04/25 16:15 Temperature 36.9 C Pulse Rate 69 63 64 Respiratory Rate 25 H Blood Pressure 113/41 L 105/38 L Pulse Oximetry 93 Oxygen Delivery Oxygen Flow Rate Fraction of Inspired Oxygen 01/04/25 16:30 01/04/25 16:54 01/04/25 17:48 Temperature Pulse Rate 64 71 Respiratory Rate 20 Blood Pressure 120/41 L Pulse Oximetry 93 92 Oxygen Delivery Nasal Cannula Nasal Cannula Oxygen Flow Rate 2 3 Fraction of Inspired Oxygen 01/04/25 18:00 01/04/25 18:00 01/04/25 18:04 Temperature Pulse Rate 72 72 76 Respiratory Rate 24 H Blood Pressure 112/42 L 117/44 L Pulse Oximetry 94 Oxygen Delivery Oxygen Flow Rate Fraction of Inspired Oxygen 01/04/25 18:20 01/04/25 20:00 01/04/25 20:00 Temperature Pulse Rate 69 65 65 Respiratory Rate Blood Pressure 110/41 L 97/42 L 103/41 L Pulse Oximetry Oxygen Delivery Oxygen Flow Rate Fraction of Inspired Oxygen 01/04/25 20:00 01/04/25 20:00 01/04/25 20:11 Temperature Pulse Rate 65 Respiratory Rate Blood Pressure Pulse Oximetry 93 93 Oxygen Delivery Nasal Cannula Nasal Cannula Oxygen Flow Rate 3 3 Fraction of Inspired Oxygen 32 01/04/25 20:11 01/04/25 20:12 01/04/25 20:24 Temperature 37.3 C Pulse Rate 70 73 72 Respiratory Rate 20 20 20 Blood Pressure 115/46 L Pulse Oximetry 96 Oxygen Delivery Oxygen Flow Rate Fraction of Inspired Oxygen 01/04/25 20:27 01/04/25 22:00 01/04/25 22:00 Temperature 37.1 C Pulse Rate 68 66 65 Respiratory Rate 22 H Blood Pressure 100/39 L 110/42 L 106/39 L Pulse Oximetry 92 Oxygen Delivery Oxygen Flow Rate Fraction of Inspired Oxygen 01/04/25 22:00 01/04/25 22:23 01/04/25 22:30 Temperature Pulse Rate 65 72 Respiratory Rate 23 H Blood Pressure Pulse Oximetry 94 92 Oxygen Delivery BiPAP BiPAP Oxygen Flow Rate Fraction of Inspired Oxygen 30 01/05/25 00:00 01/05/25 00:00 01/05/25 00:00 Temperature 37.1 C Pulse Rate 59 L 61 Respiratory Rate 24 H Blood Pressure 117/47 L 122/48 L Pulse Oximetry 92 91 Oxygen Delivery BiPAP Oxygen Flow Rate Fraction of Inspired Oxygen 30 01/05/25 00:00 01/05/25 00:00 01/05/25 01:39 Temperature Pulse Rate 61 70 59 L Respiratory Rate 20 Blood Pressure 122/48 L Pulse Oximetry 94 Oxygen Delivery BiPAP Oxygen Flow Rate Fraction of Inspired Oxygen 01/05/25 01:39 01/05/25 01:40 01/05/25 01:49 Temperature Pulse Rate 59 L 71 68 Respiratory Rate 20 21 H Blood Pressure 120/54 L Pulse Oximetry Oxygen Delivery Oxygen Flow Rate Fraction of Inspired Oxygen 01/05/25 02:00 01/05/25 02:00 01/05/25 02:00 Temperature 36.8 C Pulse Rate 62 58 L 58 L Respiratory Rate 26 H Blood Pressure 111/42 L 117/45 L Pulse Oximetry 90 Oxygen Delivery Oxygen Flow Rate Fraction of Inspired Oxygen 01/05/25 02:35 01/05/25 02:50 01/05/25 03:05 Temperature Pulse Rate 58 L 56 L 55 L Respiratory Rate Blood Pressure 101/39 L 99/39 L 109/45 L Pulse Oximetry Oxygen Delivery Oxygen Flow Rate Fraction of Inspired Oxygen 01/05/25 03:45 01/05/25 03:50 01/05/25 04:00 Temperature Pulse Rate 54 L 57 L 55 L Respiratory Rate 24 H Blood Pressure 125/50 L 122/49 L 115/46 L Pulse Oximetry 93 Oxygen Delivery Oxygen Flow Rate Fraction of Inspired Oxygen 01/05/25 04:00 01/05/25 04:00 01/05/25 04:00 Temperature Pulse Rate 56 L 56 L Respiratory Rate Blood Pressure 121/48 L Pulse Oximetry 92 Oxygen Delivery BiPAP Oxygen Flow Rate Fraction of Inspired Oxygen 30 01/05/25 04:00 01/05/25 05:15 01/05/25 05:45 Temperature Pulse Rate 57 L 58 L 58 L Respiratory Rate Blood Pressure 120/48 L 127/51 L 110/49 L Pulse Oximetry Oxygen Delivery Oxygen Flow Rate Fraction of Inspired Oxygen 01/05/25 06:00 01/05/25 06:00 01/05/25 06:00 Temperature Pulse Rate 55 L 55 L 55 L Respiratory Rate 21 H Blood Pressure 119/47 L 119/47 L Pulse Oximetry 93 Oxygen Delivery Oxygen Flow Rate Fraction of Inspired Oxygen 01/05/25 08:00 01/05/25 08:00 01/05/25 08:00 Temperature 36.9 C Pulse Rate 60 60 Respiratory Rate 19 Blood Pressure 110/46 L 110/46 L Pulse Oximetry 92 93 Oxygen Delivery Nasal Cannula Oxygen Flow Rate 3 Fraction of Inspired Oxygen 01/05/25 08:00 01/05/25 08:00 01/05/25 08:30 Temperature Pulse Rate 53 L 53 L 60 Respiratory Rate Blood Pressure 112/45 L Pulse Oximetry Oxygen Delivery Oxygen Flow Rate Fraction of Inspired Oxygen 01/05/25 08:52 01/05/25 09:15 01/05/25 09:15 Temperature Pulse Rate 56 L 67 Respiratory Rate 22 H Blood Pressure 115/46 L Pulse Oximetry 93 Oxygen Delivery Nasal Cannula Oxygen Flow Rate 3 Fraction of Inspired Oxygen 01/05/25 09:30 Temperature Pulse Rate 75 Respiratory Rate 24 H Blood Pressure Pulse Oximetry Oxygen Delivery Oxygen Flow Rate Fraction of Inspired Oxygen Intake/Output Intake/Output: Intake & Output 01/02/25 01/03/25 01/04/25 01/05/25 23:59 23:59 23:59 23:59 Intake Total 4014.4 655.2 285.8 Output Total 1350 850 Balance 4014.4 -694.8 -564.2 Meds/Results Medications: Active Medications Generic Name Dose Route Start Last Admin Trade Name Freq PRN Reason Stop Dose Admin Acetylcysteine 200 mg 01/04/25 14:00 01/05/25 09:09 Acetylcysteine 20% Inhal Soln 800 Mg/4 Ml Vial INHALATION 200 mg Q6HRT DIANN Administration Albuterol/Ipratropium 3 ml 01/04/25 14:00 01/05/25 09:08 Ipratropium 0.5 Mg/Albuterol Sulfate 2.5 Mg Ampul.Neb 3 Ml INHALATION 3 ml Q6HRT DIANN Administration Dextrose 12.5 gm 01/04/25 00:51 Dextrose 50% 25 Gm/50 Ml Syringe IV PUSH PRN PRN Hypoglycemia Protocol Enoxaparin Sodium 40 mg 01/04/25 09:00 01/05/25 08:35 Enoxaparin 40 Mg/0.4 Ml Syringe SUB-Q 40 mg DAILY DIANN Administration Glucagon 1 mg 01/04/25 00:51 Glucagon For Inj 1 Mg Vial IM PRN PRN Hypoglycemia Protocol Glucose 15 gm 01/04/25 00:51 Glucose Oral Gel 15 Gm Of Glucse In 37.5 Gm Tube PO PRN PRN Hypoglycemia Protocol Doxycycline Hyclate 100 mg in 100 mls @ 100 mls/hr 01/03/25 22:00 01/05/25 09:44 Vibramycin 100 Mg/Ns 100 Ml IVPB 01/08/25 21:59 Infused Q12HR DIANN Infusion Dextrose 1,000 mls @ 100 mls/hr 01/04/25 00:51 Dextrose 5% 1,000 Ml IVPB PRN PRN Hypoglycemia Protocol Norepinephrine Bitartrate 8 mg in 250 mls @ 1.875 mls/hr 01/04/25 04:10 01/05/25 08:52 Levophed 8 Mg/D5w 250 Ml IV CONT 1 mcg/min .Q24H DIANN 1.88 mls/hr Titration Protocol 1 MCG/MIN Cefepime HCl 2 gm in 50 mls @ 100 mls/hr 01/04/25 09:00 01/05/25 09:44 Maxipime 2 Gm/Ns 50 Ml IVPB Infused Q12HR DIANN Infusion Insulin Aspart 3 - 6 units 01/04/25 17:00 01/05/25 08:37 Insulin Aspart (*Bkc) 100 Units/Ml SUB-Q Not Given TIDWM DIANN Protocol Insulin Aspart 1 - 3 units 01/04/25 21:00 01/04/25 20:38 Insulin Aspart (*Bkc) 100 Units/Ml SUB-Q Not Given HS DIANN Protocol Levothyroxine Sodium 100 mcg/ 175 mcg 01/04/25 08:45 01/05/25 06:09 Levothyroxine Sodium 75 mcg PO 175 mcg DAILY@0630 DIANN Administration Methylprednisolone Sodium Succinate 80 mg 01/04/25 21:00 01/05/25 08:36 Methylprednisolone Sod Succ 125 Mg Vial IV PUSH 80 mg Q12H DIANN Administration Oseltamivir Phosphate 30 mg 01/03/25 21:00 01/05/25 08:35 Oseltamivir Phosphate 30 Mg Capsule PO 01/08/25 20:59 30 mg Q12HR DIANN Administration Pantoprazole Sodium 40 mg 01/04/25 09:00 01/05/25 08:35 Pantoprazole Sodium Iv 40 Mg Vial IV PUSH 40 mg QAM DIANN Administration Perflutren Lipid Microsphere 0 ml 01/04/25 09:42 Perflutren Lipid Microspheres 1.5 Ml Vial Diluted To 10 Ml Total Volume IV PUSH 01/07/25 09:42 ONCE PRN adequate visualization Protocol Sodium Chloride 10 ml 01/03/25 22:00 01/05/25 06:09 Central Line Flush IV PUSH 10 ml Q8HR DIANN Administration Sodium Chloride 20 ml 01/03/25 17:40 Central Line Flush IV PUSH PRN PRN after blood draws Radiology Results: ITS Impressions Chest CTA 01/03/25 13:40 IMPRESSION: 1. Bibasilar pneumonia. Pneumonia in the right upper lobe. 2. No pulmonary embolism. Head CT 01/03/25 16:01 Impression: No acute intracranial hemorrhage or suspicious mass effect. Chest X-Ray 01/05/25 06:21 Impression: Patchy left basilar airspace disease is suspicious for pneumonia. Suspected COPD or chronic interstitial change. Support line, as above. Labs Labs: Laboratory Results - last 24 hr 01/04/25 01/04/25 01/04/25 06:18 10:25 11:10 WBC RBC Hgb Hct MCV MCH MCHC RDW Plt Count MPV % Immature Plt Fraction Puncture Site Artline ABG pH 7.275 L* ABG pCO2 66.3 H* ABG pO2 68.7 L ABG PO2/FiO2 Ratio 2.29 ABG HCO3 30.1 H ABG O2 Saturation 90.9 L ABG O2 Content 17.5 ABG Base Excess 1.6 A-a Gradient 67.3 Oxyhemoglobin 92.3 Carboxyhemoglobin Methemoglobin Reduced Hemoglobin Total Hemoglobin 13.5 O2 Delivery Device Non-invasive vent O2 Liters/Min Not Reportable Vent Rate 20 FiO2 30 Expiratory Pressure Not Reportable Inspiratory Pressure Not Reportable Sodium Potassium Chloride Carbon Dioxide Anion Gap BUN Creatinine Estim Creat Clear Calc Estimated GFR Glucose POC Capillary Glucose Calcium Magnesium Total Bilirubin AST ALT Alkaline Phosphatase NT-Pro-B Natriuret Pep 1300 H Total Protein Albumin TSH (Reflex) 32.800 H Free T4 0.64 L 01/04/25 01/04/25 01/04/25 11:17 12:28 15:46 WBC RBC Hgb Hct MCV MCH MCHC RDW Plt Count MPV % Immature Plt Fraction Puncture Site Artline ABG pH 7.294 L* ABG pCO2 59.1 H ABG pO2 63.5 L ABG PO2/FiO2 Ratio 2.27 ABG HCO3 28.0 H ABG O2 Saturation 89.4 L ABG O2 Content 16.7 ABG Base Excess 0.4 A-a Gradient 66.4 Oxyhemoglobin 90.4 Carboxyhemoglobin 0.8 Methemoglobin 0.3 Reduced Hemoglobin 8.5 H Total Hemoglobin 13.1 O2 Delivery Device Nasal cannula O2 Liters/Min 2.0 Vent Rate FiO2 28 Expiratory Pressure Inspiratory Pressure Sodium Potassium Chloride Carbon Dioxide Anion Gap BUN Creatinine Estim Creat Clear Calc Estimated GFR Glucose POC Capillary Glucose 99 223 H Calcium Magnesium Total Bilirubin AST ALT Alkaline Phosphatase NT-Pro-B Natriuret Pep Total Protein Albumin TSH (Reflex) Free T4 01/04/25 01/05/25 01/05/25 20:07 06:00 08:24 WBC 13.6 H RBC 4.04 L Hgb 12.7 Hct 40.8 MCV 101.0 H MCH 31.4 MCHC 31.1 L RDW 13.5 Plt Count 144 L MPV 10.1 % Immature Plt Fraction 3.2 Puncture Site ABG pH ABG pCO2 ABG pO2 ABG PO2/FiO2 Ratio ABG HCO3 ABG O2 Saturation ABG O2 Content ABG Base Excess A-a Gradient Oxyhemoglobin Carboxyhemoglobin Methemoglobin Reduced Hemoglobin Total Hemoglobin O2 Delivery Device O2 Liters/Min Vent Rate FiO2 Expiratory Pressure Inspiratory Pressure Sodium 137 Potassium 3.9 Chloride 101 Carbon Dioxide 31 H Anion Gap 5 BUN 18 H Creatinine 0.87 Estim Creat Clear Calc 51 Estimated GFR > 60 Glucose 149 H POC Capillary Glucose 179 H 128 H Calcium 8.3 L Magnesium 2.3 Total Bilirubin 0.4 AST 47 H ALT 29 Alkaline Phosphatase 63 NT-Pro-B Natriuret Pep Total Protein 7.0 Albumin 3.2 L TSH (Reflex) Free T4
[2025-01-05 11:26] LABS: Alveolar/Arterial O2 Gradient 103.9 mmHg; Base Excess ABG -0.4 mEq/l (+/-2.0); Fractional Inspired Oxygen 32 %; HCO3 ABG 26.2 mEq/l (22.0-26.0); Oxygen Content ABG 16.5 %vol (16.0-22.0); Oxyhemoglobin 91.4 % THb (90.0-100.0); PCO2 ABG 50.9 mmHg (35.0-45.0); PO2 ABG 64.7 mmHg (80.0-100.0); PO2 FiO2 Ratio Arterial Blood 2.02 %; Total Hemoglobin 12.8 g/dL (12.0-18.0); pH ABG 7.329 (7.350-7.450)
[2025-01-05 11:28] LABS: Device NASAL CANNULA; Site Drawn ARTLINE
[2025-01-05 11:37] LABS: Glucose Point of Care 122 mg/dl (65-105)
--- NOTE | 2025-01-05 13:03 | PM.IMPN ---
Progress Note: A&P Assessment and Plan (1) Septic shock: Code(s): A41.9 - Sepsis, unspecified organism; R65.21 - Severe sepsis with septic shock Status: Acute Assessment and Plan: Septic shock secondary to pneumonia, influenza and UTI Blood and urine cultures Currently not on Levophed (2) Acute and chronic respiratory failure: Code(s): J96.20 - Acute and chronic respiratory failure, unspecified whether with hypoxia or hypercapnia Status: Acute Assessment and Plan: Acute on chronic respiratory failure with hypercapnia and hypoxia secondary to pneumonia, influenza Patient likely has chronic hypercapnic respiratory failure secondary to obesity hypoventilation syndrome and possibly COPD as patient has history of smoking Patient was on BiPAP which was switched to AVAPS mode by Pulmonary. Patient is now on nasal cannula Continue NIPPV p.r.n. and at night. Patient is DNR DNI and does not want intubation and invasive mechanical ventilation Hold further crystalloids Prednisone 40 mg PO QD x 3 days and bronchodilator Tamiflu and isolation for influenza Empiric antibiotics -cefepime doxycycline. Off vancomycin has nasal MRSA screen was negative (3) Pneumonia: Code(s): J18.9 - Pneumonia, unspecified organism Status: Acute Assessment and Plan: See above (4) Congestive heart failure: Code(s): I50.9 - Heart failure, unspecified Status: Acute Assessment and Plan: Lower extremity edema with chronic venous stasis changes. BNP 1300 Echo Summary 1. Complete two-dimensional, color flow and Doppler transthoracic echocardiogram is performed. 2. Left ventricular chamber dimension is normal. 3. Left ventricular systolic function is normal, estimated at 60-65%. 4. The left ventricular diastolic function is abnormal. 5. E/e' 10 is mildly elevated. 6. There is mild aortic valve sclerosis. 7. There is moderate tricuspid valve regurgitation. 8. No pulmonary hypertension, estimated pulmonary arterial systolic pressure is 36 mmHg. Hold further fluid (5) Diabetes: Code(s): E11.9 - Type 2 diabetes mellitus without complications Status: Acute Assessment and Plan: Advance diet to diabetic SSI (6) UTI (urinary tract infection): Code(s): N39.0 - Urinary tract infection, site not specified Status: Acute Assessment and Plan: See above (7) Flu: Code(s): J11.1 - Influenza due to unidentified influenza virus with other respiratory manifestations Status: Acute Assessment and Plan: See above (8) Hypothyroidism: Code(s): E03.9 - Hypothyroidism, unspecified Status: Acute Assessment and Plan: Continue levothyroxine. Her TSH is very high and free T4 low. Continue Levothyroxine 175 mcg and follow up with PCP in 6 weeks and repeat TSH Subjective Date/time seen: 01/05/25 13:03 Interval history: Currently patient is not on Levophed but still blood pressure is soft. Continue cefepime and doxycycline. Patient is breathing comfortably. Advised on smoking cessation Review of Systems Review of Systems: Patient on BiPAP hypoxic when talking All systems reviewed & are unremarkable except as noted in HPI and below (HPI) ROS unobtainable: Yes unobtainable due to medical condition and unobtainable due to mental status Exam Narrative: General: Pt is alert awake and in NAD Lungs/Chest: Trachea central course BS B/L, few bibasilar crackles no wheezing Cardiac: RRR. Normal S1 S2. No murmurs Circulation: Feet are warm. She has bilateral chronic venous stasis changes Abdomen: Normal bowel sounds.. Soft. NT. ND. Extremities: No clubbing, cyanosis Warm, mild pitting edema bilaterally : Shoemaker in place Neurologic: Follows commands with all and Moves all 4 extremities PERRL AO x3 Skin: No Rash Objective Data Vital Signs Vital Signs: Vital Signs - 24 hr 01/04/25 13:14 01/04/25 13:30 01/04/25 14:00 Temperature Pulse Rate 63 70 65 Respiratory Rate Blood Pressure 115/45 L 117/45 L Pulse Oximetry Oxygen Delivery Oxygen Flow Rate Fraction of Inspired Oxygen 01/04/25 14:00 01/04/25 14:00 01/04/25 14:11 Temperature Pulse Rate 66 65 Respiratory Rate Blood Pressure 110/41 L 110/40 L Pulse Oximetry 92 91 Oxygen Delivery Nasal Cannula Oxygen Flow Rate 2 Fraction of Inspired Oxygen 01/04/25 14:11 01/04/25 14:26 01/04/25 15:54 Temperature Pulse Rate 65 83 83 Respiratory Rate 23 H 20 Blood Pressure Pulse Oximetry Oxygen Delivery Oxygen Flow Rate Fraction of Inspired Oxygen 01/04/25 15:56 01/04/25 16:00 01/04/25 16:00 Temperature Pulse Rate 70 69 Respiratory Rate Blood Pressure 113/41 L Pulse Oximetry 93 Oxygen Delivery Nasal Cannula Oxygen Flow Rate 3 Fraction of Inspired Oxygen 03/12/25 16:00 01/04/25 16:15 01/04/25 16:30 Temperature 98.4 F Pulse Rate 63 64 64 Respiratory Rate 25 H Blood Pressure 113/41 L 105/38 L 120/41 L Pulse Oximetry 93 Oxygen Delivery Oxygen Flow Rate Fraction of Inspired Oxygen 01/04/25 16:54 01/04/25 17:48 01/04/25 18:00 Temperature Pulse Rate 71 72 Respiratory Rate 20 Blood Pressure Pulse Oximetry 93 92 Oxygen Delivery Nasal Cannula Nasal Cannula Oxygen Flow Rate 2 3 Fraction of Inspired Oxygen 01/04/25 18:00 01/04/25 18:04 01/04/25 18:20 Temperature Pulse Rate 72 76 69 Respiratory Rate 24 H Blood Pressure 112/42 L 117/44 L 110/41 L Pulse Oximetry 94 Oxygen Delivery Oxygen Flow Rate Fraction of Inspired Oxygen 01/04/25 20:00 01/04/25 20:00 01/04/25 20:00 Temperature Pulse Rate 65 65 Respiratory Rate Blood Pressure 97/42 L 103/41 L Pulse Oximetry 93 Oxygen Delivery Nasal Cannula Oxygen Flow Rate 3 Fraction of Inspired Oxygen 01/04/25 20:00 01/04/25 20:11 01/04/25 20:11 Temperature Pulse Rate 65 70 Respiratory Rate 20 Blood Pressure Pulse Oximetry 93 Oxygen Delivery Nasal Cannula Oxygen Flow Rate 3 Fraction of Inspired Oxygen 32 01/04/25 20:12 01/04/25 20:24 01/04/25 20:27 Temperature 99.1 F Pulse Rate 73 72 68 Respiratory Rate 20 20 Blood Pressure 115/46 L 100/39 L Pulse Oximetry 96 Oxygen Delivery Oxygen Flow Rate Fraction of Inspired Oxygen 01/04/25 22:00 01/04/25 22:00 01/04/25 22:00 Temperature 98.7 F Pulse Rate 66 65 65 Respiratory Rate 22 H Blood Pressure 110/42 L 106/39 L Pulse Oximetry 92 Oxygen Delivery Oxygen Flow Rate Fraction of Inspired Oxygen 01/04/25 22:23 01/04/25 22:30 01/05/25 00:00 Temperature 98.8 F Pulse Rate 72 59 L Respiratory Rate 23 H 24 H Blood Pressure 117/47 L Pulse Oximetry 94 92 92 Oxygen Delivery BiPAP BiPAP Oxygen Flow Rate Fraction of Inspired Oxygen 30 01/05/25 00:00 01/05/25 00:00 01/05/25 00:00 Temperature Pulse Rate 61 61 Respiratory Rate Blood Pressure 122/48 L 122/48 L Pulse Oximetry 91 Oxygen Delivery BiPAP Oxygen Flow Rate Fraction of Inspired Oxygen 30 01/05/25 00:00 01/05/25 01:39 01/05/25 01:39 Temperature Pulse Rate 70 59 L 59 L Respiratory Rate 20 20 Blood Pressure Pulse Oximetry 94 Oxygen Delivery BiPAP Oxygen Flow Rate Fraction of Inspired Oxygen 01/05/25 01:40 01/05/25 01:49 01/05/25 02:00 Temperature 98.2 F Pulse Rate 71 68 62 Respiratory Rate 21 H 26 H Blood Pressure 120/54 L 111/42 L Pulse Oximetry 90 Oxygen Delivery Oxygen Flow Rate Fraction of Inspired Oxygen 01/05/25 02:00 01/05/25 02:00 01/05/25 02:35 Temperature Pulse Rate 58 L 58 L 58 L Respiratory Rate Blood Pressure 117/45 L 101/39 L Pulse Oximetry Oxygen Delivery Oxygen Flow Rate Fraction of Inspired Oxygen 01/05/25 02:50 01/05/25 03:05 01/05/25 03:45 Temperature Pulse Rate 56 L 55 L 54 L Respiratory Rate Blood Pressure 99/39 L 109/45 L 125/50 L Pulse Oximetry Oxygen Delivery Oxygen Flow Rate Fraction of Inspired Oxygen 01/05/25 03:50 01/05/25 04:00 01/05/25 04:00 Temperature Pulse Rate 57 L 55 L 56 L Respiratory Rate 24 H Blood Pressure 122/49 L 115/46 L 121/48 L Pulse Oximetry 93 Oxygen Delivery Oxygen Flow Rate Fraction of Inspired Oxygen 01/05/25 04:00 01/05/25 04:00 01/05/25 04:00 Temperature Pulse Rate 56 L 57 L Respiratory Rate Blood Pressure 120/48 L Pulse Oximetry 92 Oxygen Delivery BiPAP Oxygen Flow Rate Fraction of Inspired Oxygen 30 01/05/25 05:15 01/05/25 05:45 01/05/25 06:00 Temperature Pulse Rate 58 L 58 L 55 L Respiratory Rate 21 H Blood Pressure 127/51 L 110/49 L 119/47 L Pulse Oximetry 93 Oxygen Delivery Oxygen Flow Rate Fraction of Inspired Oxygen 01/05/25 06:00 01/05/25 06:00 01/05/25 08:00 Temperature 98.4 F Pulse Rate 55 L 55 L 60 Respiratory Rate 19 Blood Pressure 119/47 L 110/46 L Pulse Oximetry 92 Oxygen Delivery Oxygen Flow Rate Fraction of Inspired Oxygen 01/05/25 08:00 01/05/25 08:00 01/05/25 08:00 Temperature Pulse Rate 60 53 L Respiratory Rate Blood Pressure 110/46 L Pulse Oximetry 93 Oxygen Delivery Nasal Cannula Oxygen Flow Rate 3 Fraction of Inspired Oxygen 01/05/25 08:00 01/05/25 08:30 01/05/25 08:52 Temperature Pulse Rate 53 L 60 56 L Respiratory Rate Blood Pressure 112/45 L 115/46 L Pulse Oximetry Oxygen Delivery Oxygen Flow Rate Fraction of Inspired Oxygen 01/05/25 09:15 01/05/25 09:15 01/05/25 09:30 Temperature Pulse Rate 67 75 Respiratory Rate 22 H 24 H Blood Pressure Pulse Oximetry 93 Oxygen Delivery Nasal Cannula Oxygen Flow Rate 3 Fraction of Inspired Oxygen 01/05/25 10:00 01/05/25 10:00 01/05/25 10:10 Temperature 98 F Pulse Rate 73 70 60 Respiratory Rate 25 H Blood Pressure 110/41 L 111/41 L Pulse Oximetry 92 Oxygen Delivery Oxygen Flow Rate Fraction of Inspired Oxygen 01/05/25 11:37 01/05/25 11:37 01/05/25 12:00 Temperature Pulse Rate 73 73 Respiratory Rate Blood Pressure 108/43 L 120/48 L Pulse Oximetry 90 Oxygen Delivery Nasal Cannula Oxygen Flow Rate 3 Fraction of Inspired Oxygen 01/05/25 12:00 01/05/25 12:00 Temperature 98.2 F Pulse Rate 71 71 Respiratory Rate 22 H Blood Pressure 118/47 L Pulse Oximetry 92 Oxygen Delivery Oxygen Flow Rate Fraction of Inspired Oxygen Intake/Output Intake/Output: Intake & Output 01/02/25 01/03/25 01/04/25 01/05/25 23:59 23:59 23:59 23:59 Intake Total 4014.4 655.2 288.2 Output Total 1350 850 Balance 4014.4 -694.8 -561.8 Meds/Results Medications: Active Medications Generic Name Dose Route Start Last Admin Trade Name Freq PRN Reason Stop Dose Admin Acetylcysteine 200 mg 01/04/25 14:00 01/05/25 09:09 Acetylcysteine 20% Inhal Soln 800 Mg/4 Ml Vial INHALATION 200 mg Q6HRT DIANN Administration Albuterol/Ipratropium 3 ml 01/04/25 14:00 01/05/25 09:08 Ipratropium 0.5 Mg/Albuterol Sulfate 2.5 Mg Ampul.Neb 3 Ml INHALATION 3 ml Q6HRT DIANN Administration Dextrose 12.5 gm 01/04/25 00:51 Dextrose 50% 25 Gm/50 Ml Syringe IV PUSH PRN PRN Hypoglycemia Protocol Enoxaparin Sodium 40 mg 01/04/25 09:00 01/05/25 08:35 Enoxaparin 40 Mg/0.4 Ml Syringe SUB-Q 40 mg DAILY DIANN Administration Glucagon 1 mg 01/04/25 00:51 Glucagon For Inj 1 Mg Vial IM PRN PRN Hypoglycemia Protocol Glucose 15 gm 01/04/25 00:51 Glucose Oral Gel 15 Gm Of Glucse In 37.5 Gm Tube PO PRN PRN Hypoglycemia Protocol Doxycycline Hyclate 100 mg in 100 mls @ 100 mls/hr 01/03/25 22:00 01/05/25 09:44 Vibramycin 100 Mg/Ns 100 Ml IVPB 01/08/25 21:59 Infused Q12HR DIANN Infusion Dextrose 1,000 mls @ 100 mls/hr 01/04/25 00:51 Dextrose 5% 1,000 Ml IVPB PRN PRN Hypoglycemia Protocol Norepinephrine Bitartrate 8 mg in 250 mls @ 0 mls/hr 01/04/25 04:10 01/05/25 12:00 Levophed 8 Mg/D5w 250 Ml IV CONT 0 mcg/min .Q0M DIANN 0 mls/hr Titration Protocol Cefepime HCl 2 gm in 50 mls @ 100 mls/hr 01/04/25 09:00 01/05/25 09:44 Maxipime 2 Gm/Ns 50 Ml IVPB Infused Q12HR DIANN Infusion Insulin Aspart 3 - 6 units 01/04/25 17:00 01/05/25 11:36 Insulin Aspart (*Bkc) 100 Units/Ml SUB-Q Not Given TIDWM DIANN Protocol Insulin Aspart 1 - 3 units 01/04/25 21:00 01/04/25 20:38 Insulin Aspart (*Bkc) 100 Units/Ml SUB-Q Not Given HS DIANN Protocol Levothyroxine Sodium 100 mcg/ 175 mcg 01/04/25 08:45 01/05/25 06:09 Levothyroxine Sodium 75 mcg PO 175 mcg DAILY@0630 DIANN Administration Methylprednisolone Sodium Succinate 80 mg 01/04/25 21:00 01/05/25 08:36 Methylprednisolone Sod Succ 125 Mg Vial IV PUSH 80 mg Q12H DIANN Administration Oseltamivir Phosphate 30 mg 01/03/25 21:00 01/05/25 08:35 Oseltamivir Phosphate 30 Mg Capsule PO 01/08/25 20:59 30 mg Q12HR DIANN Administration Pantoprazole Sodium 40 mg 01/04/25 09:00 01/05/25 08:35 Pantoprazole Sodium Iv 40 Mg Vial IV PUSH 40 mg QAM DIANN Administration Perflutren Lipid Microsphere 0 ml 01/04/25 09:42 Perflutren Lipid Microspheres 1.5 Ml Vial Diluted To 10 Ml Total Volume IV PUSH 01/07/25 09:42 ONCE PRN adequate visualization Protocol Sodium Chloride 10 ml 01/03/25 22:00 01/05/25 06:09 Central Line Flush IV PUSH 10 ml Q8HR DIANN Administration Sodium Chloride 20 ml 01/03/25 17:40 Central Line Flush IV PUSH PRN PRN after blood draws Radiology Results: ITS Impressions Chest CTA 01/03/25 13:40 IMPRESSION: 1. Bibasilar pneumonia. Pneumonia in the right upper lobe. 2. No pulmonary embolism. Head CT 01/03/25 16:01 Impression: No acute intracranial hemorrhage or suspicious mass effect. Chest X-Ray 01/05/25 06:21 Impression: Patchy left basilar airspace disease is suspicious for pneumonia. Suspected COPD or chronic interstitial change. Support line, as above. Labs Labs: Laboratory Results - last 24 hr 01/04/25 01/04/25 01/05/25 15:46 20:07 06:00 WBC 13.6 H RBC 4.04 L Hgb 12.7 Hct 40.8 MCV 101.0 H MCH 31.4 MCHC 31.1 L RDW 13.5 Plt Count 144 L MPV 10.1 % Immature Plt Fraction 3.2 Puncture Site ABG pH ABG pCO2 ABG pO2 ABG PO2/FiO2 Ratio ABG HCO3 ABG O2 Saturation ABG O2 Content ABG Base Excess A-a Gradient Oxyhemoglobin Total Hemoglobin O2 Delivery Device O2 Liters/Min FiO2 Sodium 137 Potassium 3.9 Chloride 101 Carbon Dioxide 31 H Anion Gap 5 BUN 18 H Creatinine 0.87 Estim Creat Clear Calc 51 Estimated GFR > 60 Glucose 149 H POC Capillary Glucose 223 H 179 H Calcium 8.3 L Magnesium 2.3 Total Bilirubin 0.4 AST 47 H ALT 29 Alkaline Phosphatase 63 Total Protein 7.0 Albumin 3.2 L 01/05/25 01/05/25 01/05/25 08:24 11:24 11:34 WBC RBC Hgb Hct MCV MCH MCHC RDW Plt Count MPV % Immature Plt Fraction Puncture Site Artline ABG pH 7.329 L ABG pCO2 50.9 H ABG pO2 64.7 L ABG PO2/FiO2 Ratio 2.02 ABG HCO3 26.2 H ABG O2 Saturation 91.0 L ABG O2 Content 16.5 ABG Base Excess -0.4 A-a Gradient 103.9 Oxyhemoglobin 91.4 Total Hemoglobin 12.8 O2 Delivery Device Nasal cannula O2 Liters/Min 3.0 FiO2 32 Sodium Potassium Chloride Carbon Dioxide Anion Gap BUN Creatinine Estim Creat Clear Calc Estimated GFR Glucose POC Capillary Glucose 128 H 122 H Calcium Magnesium Total Bilirubin AST ALT Alkaline Phosphatase Total Protein Albumin Quality VTE Prophylaxis VTE prophylaxis: pharmacologic ordered Hospitalist MIPS Advance Care Plan I have confirmed that the patient's Advanced Care Plan is present, code status is documented, or surrogate decision maker is listed in patient medical record.: Yes Medication Reconciliation I have utilized all available resources to obtain, update and review the patients current medications (includes all prescriptions, OTC, herbals, cannabis, and nutritional supplements).: Yes
[2025-01-05 16:42] LABS: Glucose Point of Care 160 mg/dl (65-105)
[2025-01-05 21:09] LABS: Glucose Point of Care 155 mg/dl (65-105)
[2025-01-06] VITALS (18 sets, daily range): BP systolic 100–131; BP diastolic 50–68; PULSE 58–84; RESP 19–27; TEMP 36.6–36.9; O2SAT 90–95
[2025-01-06] MEDS: ACETYLCYSTEINE 20% INHAL SOLN 800 MG/4 ML VIAL 200 MG INHALATION ×3 (02:06→14:37)
[2025-01-06] MEDS: IPRATROPIUM 0.5 MG/ALBUTEROL SULFATE 2.5 MG AMPUL.NEB 3 ML INHALATION ×3 (02:07→14:37)
[2025-01-06] MEDS: LEVOTHYROXINE SODIUM 100 MCG, LEVOTHYROXINE SODIUM 75 MCG 175 MCG PO (05:59)
[2025-01-06] MEDS: CENTRAL LINE FLUSH 10 ML IV PUSH ×3 (05:59→22:26)
[2025-01-06 06:23] LABS: Hematocrit 39.7 % (37.0-47.0); Hemoglobin 12.4 g/dL (12.0-15.0); Immature Platelet Fraction Pct 3.5 % (0.9-11.2); Mean Corpuscular HGB Conc 31.2 g/dl (32-36); Mean Corpuscular Hemoglobin 31.2 pg (26-34); Mean Corpuscular Volume 99.7 fl (80-100); Mean Platelet Volume 10.5 fl (7.4-10.4); Platelet Count Result 113 k/mm3 (150-375); Red Blood Count 3.98 M/mm3 (4.2-5.4); Red Cell Distribution Width 13.5 % (11.5-14.5); White Blood Count 8.3 K/mm3 (4.5-10.0)
[2025-01-06 06:33] LABS: Alanine Aminotransferase 26 U/L (6-35); Albumin Level 3.2 g/dL (3.5-5.1); Alkaline Phosphatase 60 U/L (38-126); Anion Gap 4 mmol/L (4-12); Aspartate Amino Transferase 45 U/L (14-36); Bilirubin,Total 0.5 mg/dL (0.2-1.3); Blood Urea Nitrogen 20 mg/dL (7-17); Calcium 8.3 mg/dL (8.4-10.2); Carbon Dioxide 33 mmol/L (22-30); Chloride 103 mmol/L (98-107); Estimated CRCL calculation 48 ml/min; Estimated Glomerular Filt Rate 59; Glucose 83 mg/dL (65-110); Magnesium 2.1 mg/dL (1.6-2.3); Potassium 3.4 mmol/L (3.4-5.0); Sodium 140 mmol/L (137-145)
[2025-01-06 07:43] LABS: Glucose Point of Care 84 mg/dl (65-105)
[2025-01-06 07:53] LABS: Free T4 Free Thyroxine Reflex 0.96 ng/dL (0.78-2.19)
[2025-01-06] MEDS: DOXYCYCLINE 100 MG/NS 100 ML 100 MG/100 ML BAG IVPB ×2 (08:06→20:17)
[2025-01-06] MEDS: predniSONE 20 MG TABLET 40 MG PO (08:07)
[2025-01-06] MEDS: CEFEPIME 2 GM/NS 50 ML 2 GM/50 ML BAG IVPB ×2 (08:07→21:51)
[2025-01-06] MEDS: OSELTAMIVIR PHOSPHATE 30 MG CAPSULE PO ×2 (08:07→20:17)
[2025-01-06] MEDS: ENOXAPARIN 40 MG/0.4 ML SYRINGE SUB-Q (08:07)
[2025-01-06] MEDS: PANTOPRAZOLE SODIUM IV 40 MG VIAL IV PUSH (08:07)
[2025-01-06] MEDS: POTASSIUM CHLORIDE 20 MEQ ER TABLET 40 MEQ PO (08:09)
[2025-01-06 08:36] LABS: Total Triiodothyronine (T3) 0.95 NG/ML (0.97-1.69)
--- NOTE | 2025-01-06 09:35 | PM.PNPUL ---
Progress Note: A&P Assessment and Plan (1) Acute exacerbation of chronic obstructive pulmonary disease (COPD): Code(s): J44.1 - Chronic obstructive pulmonary disease with (acute) exacerbation Status: Acute (2) Acute hypercapnic respiratory failure: Code(s): J96.02 - Acute respiratory failure with hypercapnia Status: Acute Assessment and Plan: This 79-year-old female presented with symptoms indicative of a respiratory infection. A chest CT scan revealed bilateral infiltrates consistent with pneumonia, and the patient tested positive for influenza A. Arterial blood gases indicated acute respiratory acidosis, with an initial base excess of -2.2, suggesting slight metabolic acidosis or reduced metabolic compensation. Despite receiving ventilatory support with BiPAP, respiratory acidosis persisted. The patient was subsequently placed on just supplemental oxygen via nasal cannula, and aggressive pulmonary toilet was initiated due to increased bronchial secretions. While on supplemental oxygen, the patient managed to maintain a lower pCO2. Overnight, she was placed back on BiPAP support. Over the last 24 hours, her respiratory status is much improved. The patient is fully awake and not experiencing shortness of breath while on supplemental oxygen, and auscultation revealed less chest congestion. It appears that the patient has underlying COPD, primarily due to chronic bronchitis, with increased bronchial secretions contributing to sustained hypercapnia despite the increased minute ventilation provided by BiPAP. Following the clearance of bronchial secretions, the patient?s respiratory acidosis improved. Physical exam today she has fewer rhonchi bilaterally. Chest x-ray essentially unchanged Plan: Continue the current antibiotic regimen and continue with oral prednisone as prescribed Continue BiPAP support at night. (3) Pneumonia: Code(s): J18.9 - Pneumonia, unspecified organism Status: Acute (4) Diabetes: Code(s): E11.9 - Type 2 diabetes mellitus without complications Status: Acute (5) Flu: Code(s): J11.1 - Influenza due to unidentified influenza virus with other respiratory manifestations Status: Acute Subjective Date/time seen: 01/06/25 09:35 Interval history: Patient has no new respiratory symptoms. Using BiPAP support at night, supplemental oxygen at 3 liters/minute. Less coughing and less chest congestion. She still on antibiotics. She is still in the ICU presumably due to IV vasopressors. Review of Systems Review of Systems: All systems reviewed & are unremarkable except as noted in HPI and below (HPI and below) Exam Narrative: GENERAL APPEARANCE: Well developed, well nourished, alert in mild respiratory distress while on room air SKIN: Inspection of the skin reveals no rashes, ulcerations or petechiae. HEENT: Sclerae anicteric and conjunctivae pink and moist. Extraocular movements were intact and pupils were equal. NECK: Supple. There was no thyroid enlargement, and no tenderness, or masses were felt. LUNGS: Clear breath sounds upper chest anteriorly CARDIAC: There was a regular rate and rhythm without any murmurs. ABDOMEN: Soft and nontender with normal bowel sounds. There was no organomegaly. LYMPH NODES: No lymphadenopathy was appreciated in the neck. EXTREMITIES: No cyanosis, clubbing. Mild edema and chronic stasis dermatitis changes lower extremities NEUROLOGIC: Patient moving all extremities, awake following commands. Objective Data Vital Signs Vital Signs: Vital Signs - 24 hr 01/05/25 10:00 01/05/25 10:00 01/05/25 10:10 Temperature 36.6 C Pulse Rate 73 70 60 Respiratory Rate 25 H Blood Pressure 110/41 L 111/41 L Pulse Oximetry 92 Oxygen Delivery Oxygen Flow Rate Fraction of Inspired Oxygen 01/05/25 11:37 01/05/25 11:37 01/05/25 12:00 Temperature Pulse Rate 73 73 Respiratory Rate Blood Pressure 108/43 L 120/48 L Pulse Oximetry 90 Oxygen Delivery Nasal Cannula Oxygen Flow Rate 3 Fraction of Inspired Oxygen 01/05/25 12:00 01/05/25 12:00 01/05/25 14:00 Temperature 36.8 C Pulse Rate 71 71 75 Respiratory Rate 22 H Blood Pressure 118/47 L Pulse Oximetry 92 Oxygen Delivery Oxygen Flow Rate Fraction of Inspired Oxygen 01/05/25 14:00 01/05/25 14:00 01/05/25 15:17 Temperature 37.0 C Pulse Rate 75 75 62 Respiratory Rate 26 H 25 H Blood Pressure 111/46 L 111/43 L Pulse Oximetry 92 Oxygen Delivery Oxygen Flow Rate Fraction of Inspired Oxygen 01/05/25 15:41 01/05/25 16:00 01/05/25 16:00 Temperature Pulse Rate 72 68 Respiratory Rate 22 H Blood Pressure 115/43 L Pulse Oximetry 92 Oxygen Delivery Nasal Cannula Oxygen Flow Rate 3 Fraction of Inspired Oxygen 01/05/25 16:00 01/05/25 16:00 01/05/25 16:00 Temperature 36.9 C Pulse Rate 68 68 65 Respiratory Rate 21 H Blood Pressure 115/42 L 108/55 L Pulse Oximetry 93 Oxygen Delivery Oxygen Flow Rate Fraction of Inspired Oxygen 01/05/25 17:57 01/05/25 17:59 01/05/25 17:59 Temperature 37.1 C Pulse Rate 66 66 68 Respiratory Rate 26 H Blood Pressure 103/58 L Pulse Oximetry 92 Oxygen Delivery Oxygen Flow Rate Fraction of Inspired Oxygen 01/05/25 20:00 01/05/25 20:00 01/05/25 20:00 Temperature 37.1 C Pulse Rate 68 62 Respiratory Rate 27 H Blood Pressure 108/57 L Pulse Oximetry 93 93 Oxygen Delivery Nasal Cannula Oxygen Flow Rate 3 Fraction of Inspired Oxygen 01/05/25 20:00 01/05/25 20:14 01/05/25 20:16 Temperature Pulse Rate 68 65 Respiratory Rate 22 H Blood Pressure 108/57 L Pulse Oximetry 94 Oxygen Delivery Nasal Cannula Oxygen Flow Rate 3 Fraction of Inspired Oxygen 01/05/25 20:24 01/05/25 22:00 01/05/25 22:00 Temperature 36.9 C Pulse Rate 76 71 71 Respiratory Rate 27 H 25 H Blood Pressure 107/54 L 107/54 L Pulse Oximetry 92 Oxygen Delivery Oxygen Flow Rate Fraction of Inspired Oxygen 01/05/25 22:00 01/05/25 22:30 01/05/25 22:35 Temperature Pulse Rate 71 70 Respiratory Rate 23 H Blood Pressure Pulse Oximetry 95 94 Oxygen Delivery BiPAP BiPAP Oxygen Flow Rate Fraction of Inspired Oxygen 30 01/06/25 00:00 01/06/25 00:00 01/06/25 00:00 Temperature 36.8 C Pulse Rate 64 64 Respiratory Rate 20 Blood Pressure 109/53 L 109/53 L Pulse Oximetry 95 95 Oxygen Delivery BiPAP Oxygen Flow Rate Fraction of Inspired Oxygen 30 01/06/25 00:00 01/06/25 02:00 01/06/25 02:00 Temperature 36.8 C Pulse Rate 71 66 66 Respiratory Rate 20 Blood Pressure 110/57 L 110/57 L Pulse Oximetry 95 Oxygen Delivery Oxygen Flow Rate Fraction of Inspired Oxygen 01/06/25 02:00 01/06/25 02:09 01/06/25 02:12 Temperature Pulse Rate 80 69 70 Respiratory Rate 22 H 23 H Blood Pressure Pulse Oximetry 95 Oxygen Delivery BiPAP Oxygen Flow Rate Fraction of Inspired Oxygen 01/06/25 02:20 01/06/25 04:00 01/06/25 04:00 Temperature 36.8 C Pulse Rate 61 62 Respiratory Rate 22 H 20 Blood Pressure 114/58 L Pulse Oximetry 93 93 Oxygen Delivery BiPAP Oxygen Flow Rate Fraction of Inspired Oxygen 30 01/06/25 04:00 01/06/25 04:00 01/06/25 06:00 Temperature Pulse Rate 63 58 L 59 L Respiratory Rate Blood Pressure 114/58 L Pulse Oximetry Oxygen Delivery Oxygen Flow Rate Fraction of Inspired Oxygen 01/06/25 06:00 01/06/25 06:00 01/06/25 07:52 Temperature 36.6 C Pulse Rate 59 L 59 L 61 Respiratory Rate 21 H Blood Pressure 127/65 127/65 Pulse Oximetry 95 Oxygen Delivery Oxygen Flow Rate Fraction of Inspired Oxygen 01/06/25 08:00 01/06/25 08:41 01/06/25 08:41 Temperature 36.7 C Pulse Rate 70 66 Respiratory Rate 27 H 20 Blood Pressure 131/61 Pulse Oximetry 92 93 Oxygen Delivery Nasal Cannula Oxygen Flow Rate 3 Fraction of Inspired Oxygen 01/06/25 08:55 Temperature Pulse Rate 75 Respiratory Rate 19 Blood Pressure Pulse Oximetry Oxygen Delivery Oxygen Flow Rate Fraction of Inspired Oxygen Intake/Output Intake/Output: Intake & Output 01/03/25 01/04/25 01/05/25 01/06/25 23:59 23:59 23:59 23:59 Intake Total 4014.4 655.2 1238.2 270 Output Total 1350 1350 400 Balance 4014.4 -694.8 -111.8 -130 Meds/Results Medications: Active Medications Generic Name Dose Route Start Last Admin Trade Name Freq PRN Reason Stop Dose Admin Acetylcysteine 200 mg 01/04/25 14:00 01/06/25 08:40 Acetylcysteine 20% Inhal Soln 800 Mg/4 Ml Vial INHALATION 200 mg Q6HRT DIANN Administration Albuterol/Ipratropium 3 ml 01/04/25 14:00 01/06/25 08:41 Ipratropium 0.5 Mg/Albuterol Sulfate 2.5 Mg Ampul.Neb 3 Ml INHALATION 3 ml Q6HRT DIANN Administration Dextrose 12.5 gm 01/04/25 00:51 Dextrose 50% 25 Gm/50 Ml Syringe IV PUSH PRN PRN Hypoglycemia Protocol Enoxaparin Sodium 40 mg 01/04/25 09:00 01/06/25 08:07 Enoxaparin 40 Mg/0.4 Ml Syringe SUB-Q 40 mg DAILY DIANN Administration Glucagon 1 mg 01/04/25 00:51 Glucagon For Inj 1 Mg Vial IM PRN PRN Hypoglycemia Protocol Glucose 15 gm 01/04/25 00:51 Glucose Oral Gel 15 Gm Of Glucse In 37.5 Gm Tube PO PRN PRN Hypoglycemia Protocol Doxycycline Hyclate 100 mg in 100 mls @ 100 mls/hr 01/03/25 22:00 01/06/25 08:06 Vibramycin 100 Mg/Ns 100 Ml IVPB 01/08/25 21:59 100 mls/hr Q12HR DIANN Administration Dextrose 1,000 mls @ 100 mls/hr 01/04/25 00:51 Dextrose 5% 1,000 Ml IVPB PRN PRN Hypoglycemia Protocol Norepinephrine Bitartrate 8 mg in 250 mls @ 0 mls/hr 01/04/25 04:10 01/06/25 06:00 Levophed 8 Mg/D5w 250 Ml IV CONT 0 mcg/min .Q0M DIANN 0 mls/hr Titration Protocol Cefepime HCl 2 gm in 50 mls @ 100 mls/hr 01/04/25 09:00 01/06/25 08:07 Maxipime 2 Gm/Ns 50 Ml IVPB 100 mls/hr Q12HR DIANN Administration Insulin Aspart 3 - 6 units 01/04/25 17:00 01/06/25 07:43 Insulin Aspart (*Bkc) 100 Units/Ml SUB-Q Not Given TIDWM DIANN Protocol Insulin Aspart 1 - 3 units 01/04/25 21:00 01/05/25 21:01 Insulin Aspart (*Bkc) 100 Units/Ml SUB-Q Not Given HS DIANN Protocol Levothyroxine Sodium 100 mcg/ 175 mcg 01/04/25 08:45 01/06/25 05:59 Levothyroxine Sodium 75 mcg PO 175 mcg DAILY@0630 DIANN Administration Oseltamivir Phosphate 30 mg 01/03/25 21:00 01/06/25 08:07 Oseltamivir Phosphate 30 Mg Capsule PO 01/08/25 20:59 30 mg Q12HR DIANN Administration Pantoprazole Sodium 40 mg 01/04/25 09:00 01/06/25 08:07 Pantoprazole Sodium Iv 40 Mg Vial IV PUSH 40 mg QAM DIANN Administration Perflutren Lipid Microsphere 0 ml 01/04/25 09:42 Perflutren Lipid Microspheres 1.5 Ml Vial Diluted To 10 Ml Total Volume IV PUSH 01/07/25 09:42 ONCE PRN adequate visualization Protocol Prednisone 40 mg 01/06/25 08:00 01/06/25 08:07 Prednisone 20 Mg Tablet PO 01/09/25 07:59 40 mg DAILY@0800 DIANN Administration Sodium Chloride 10 ml 01/03/25 22:00 01/06/25 05:59 Central Line Flush IV PUSH 10 ml Q8HR DIANN Administration Sodium Chloride 20 ml 01/03/25 17:40 Central Line Flush IV PUSH PRN PRN after blood draws Radiology Results: ITS Impressions Chest CTA 01/03/25 13:40 IMPRESSION: 1. Bibasilar pneumonia. Pneumonia in the right upper lobe. 2. No pulmonary embolism. Head CT 01/03/25 16:01 Impression: No acute intracranial hemorrhage or suspicious mass effect. Chest X-Ray 01/06/25 06:38 Impression: Small pleural effusions with probable mild pulmonary edema pattern. Stable support line. Labs Labs: Laboratory Results - last 24 hr 01/05/25 01/05/25 01/05/25 11:24 11:34 16:35 WBC RBC Hgb Hct MCV MCH MCHC RDW Plt Count MPV % Immature Plt Fraction Puncture Site Artline ABG pH 7.329 L ABG pCO2 50.9 H ABG pO2 64.7 L ABG PO2/FiO2 Ratio 2.02 ABG HCO3 26.2 H ABG O2 Saturation 91.0 L ABG O2 Content 16.5 ABG Base Excess -0.4 A-a Gradient 103.9 Oxyhemoglobin 91.4 Total Hemoglobin 12.8 O2 Delivery Device Nasal cannula O2 Liters/Min 3.0 FiO2 32 Sodium Potassium Chloride Carbon Dioxide Anion Gap BUN Creatinine Estim Creat Clear Calc Estimated GFR Glucose POC Capillary Glucose 122 H 160 H Calcium Magnesium Total Bilirubin AST ALT Alkaline Phosphatase Total Protein Albumin TSH (Reflex) Free T4 Total T3 01/05/25 01/06/25 01/06/25 20:59 06:02 07:38 WBC 8.3 RBC 3.98 L Hgb 12.4 Hct 39.7 MCV 99.7 MCH 31.2 MCHC 31.2 L RDW 13.5 Plt Count 113 L MPV 10.5 H % Immature Plt Fraction 3.5 Puncture Site ABG pH ABG pCO2 ABG pO2 ABG PO2/FiO2 Ratio ABG HCO3 ABG O2 Saturation ABG O2 Content ABG Base Excess A-a Gradient Oxyhemoglobin Total Hemoglobin O2 Delivery Device O2 Liters/Min FiO2 Sodium 140 Potassium 3.4 Chloride 103 Carbon Dioxide 33 H Anion Gap 4 BUN 20 H Creatinine 0.92 Estim Creat Clear Calc 48 Estimated GFR 59 Glucose 83 POC Capillary Glucose 155 H 84 Calcium 8.3 L Magnesium 2.1 Total Bilirubin 0.5 AST 45 H ALT 26 Alkaline Phosphatase 60 Total Protein 7.0 Albumin 3.2 L TSH (Reflex) 31.100 H Free T4 0.96 Total T3 0.95 L
[2025-01-06 11:31] LABS: Glucose Point of Care 107 mg/dl (65-105)
--- NOTE | 2025-01-06 12:00 | WPDINTPN ---
Progress Note: A&P Assessment and Plan (1) Septic shock: Code(s): A41.9 - Sepsis, unspecified organism; R65.21 - Severe sepsis with septic shock Status: Acute Assessment and Plan: Septic shock secondary to pneumonia, influenza and UTI 01/03: Blood and urine cultures negative so far OFF Levophed since 01/05/2025 with adequate blood pressures -hold IV fluids for now as patient tolerating p.o. diet (2) Acute and chronic respiratory failure: Code(s): J96.20 - Acute and chronic respiratory failure, unspecified whether with hypoxia or hypercapnia Status: Acute Assessment and Plan: Acute on chronic respiratory failure with hypercapnia and hypoxia secondary to pneumonia, influenza Patient likely has chronic hypercapnic respiratory failure secondary to obesity hypoventilation syndrome and possibly COPD as patient has history of smoking Patient was on BiPAP which was switched to AVAPS mode by Pulmonary. Patient is now on nasal cannula Continue NIPPV p.r.n. and at night. Patient is DNR/ DNI and does not want intubation and invasive mechanical ventilation Hold further crystalloids On prednisone Tamiflu and isolation for influenza Empiric antibiotics -cefepime doxycycline. Off vancomycin has nasal MRSA screen was negative (3) Pneumonia: Code(s): J18.9 - Pneumonia, unspecified organism Status: Acute Assessment and Plan: See above (4) Congestive heart failure: Code(s): I50.9 - Heart failure, unspecified Status: Acute Assessment and Plan: Lower extremity edema with chronic venous stasis changes. BNP 1300 Echo Summary 1. Complete two-dimensional, color flow and Doppler transthoracic echocardiogram is performed. 2. Left ventricular chamber dimension is normal. 3. Left ventricular systolic function is normal, estimated at 60-65%. 4. The left ventricular diastolic function is abnormal. 5. E/e' 10 is mildly elevated. 6. There is mild aortic valve sclerosis. 7. There is moderate tricuspid valve regurgitation. 8. No pulmonary hypertension, estimated pulmonary arterial systolic pressure is 36 mmHg. Hold further fluid (5) Diabetes: Code(s): E11.9 - Type 2 diabetes mellitus without complications Status: Acute Assessment and Plan: Tolerating diabetic diet Continue Accu-Cheks and sliding scale insulin (6) UTI (urinary tract infection): Code(s): N39.0 - Urinary tract infection, site not specified Status: Acute Assessment and Plan: See above, urine cultures have been negative so far (7) Flu: Code(s): J11.1 - Influenza due to unidentified influenza virus with other respiratory manifestations Status: Acute Assessment and Plan: Continue Tamiflu x5 days (8) Hypothyroidism: Code(s): E03.9 - Hypothyroidism, unspecified Status: Acute Assessment and Plan: Continue levothyroxine. Her TSH is very high and free T4 low. Patient is on high dose of levothyroxine. I am not sure of complaints with medication. Considering her old age I will continue with current dose at this time and not further increased Plan DVT prophylaxis -Lovenox Stress ulcer prophylaxis -Protonix Nutrition -advance diet Code Status -DNR DNI Discussed with patient updated with her condition and plan of care. Patient be transferred out of the ICU 01/04 Spoke to patient's daughter at bedside and patient and discussed patient's current status including influenza, pneumonia, septic shock, acute respiratory failure. I also discussed goals of care and code status. Patient does not want to go on mechanical ventilation or desire CPR in the event of cardiac arrest. Patient's daughter is in agreement and respect patient's wishes and increase the patient would not want to go on mechanical ventilation even if her respiratory status worsens on BiPAP. They want to continue with noninvasive mechanical ventilation and current treatment but do not desire CPR or resuscitation in the event of cardiac arrest or invasive mechanical ventilation in case respiratory status deteriorates. Total Critical Care Time - 32 minutes Due to a high probability of clinically significant, life threatening deterioration, the patient required my highest level of preparedness to intervene emergently and I personally spent this critical care time directly and personally managing the patient. This critical care time included obtaining a history; examining the patient; pulse oximetry; ordering and review of studies; arranging urgent treatment with development of a management plan; evaluation of patient's response to treatment; frequent reassessment; and discussions with other providers. It was exclusive of separately billable procedures and treating other patients and teaching time. Please see Assessment and Plan section and the rest of the note for further information on patient assessment and treatment Subjective Date/time seen: 01/06/25 12:00 Interval history: Reason for consult: Acute on chronic respiratory failure likely related to pneumonia, influenza. Septic shock, heart failure 01/06/2025: Patient seen and examined the ICU, is awake, alert, oriented, pleasant female currently in no acute distress. She weighs 3 L oxygen during the day and on BiPAP during the night which she were last night. Denies any shortness of breath, chest pain, abdominal pain, nausea vomiting at this time. Patient is afebrile with adequate urine output, good appetite. Review of Systems Review of Systems: All systems reviewed & are unremarkable except as noted in HPI and below (HPI) Exam Narrative: General: Pt is alert awake and in NAD Lungs/Chest: Trachea central course BS B/L, few bibasilar crackles no wheezing Cardiac: RRR. Normal S1 S2. No murmurs Circulation: Feet are warm. She has bilateral chronic venous stasis changes Abdomen: Normal bowel sounds.. Soft. NT. ND. Extremities: No clubbing, cyanosis Warm, mild pitting edema bilaterally : Shoemaker in place Neurologic: Follows commands with all and Moves all 4 extremities PERRL AO x3 Skin: No Rash Objective Data Vital Signs Vital Signs: Vital Signs - 24 hr 01/05/25 14:00 01/05/25 14:00 01/05/25 14:00 Temperature 98.6 F Pulse Rate 75 75 75 Respiratory Rate 26 H Blood Pressure 111/46 L 111/43 L Pulse Oximetry 92 Oxygen Delivery Oxygen Flow Rate Fraction of Inspired Oxygen 01/05/25 15:17 01/05/25 15:41 01/05/25 16:00 Temperature Pulse Rate 62 72 68 Respiratory Rate 25 H 22 H Blood Pressure 115/43 L Pulse Oximetry Oxygen Delivery Oxygen Flow Rate Fraction of Inspired Oxygen 01/05/25 16:00 01/05/25 16:00 01/05/25 16:00 Temperature 98.4 F Pulse Rate 68 68 Respiratory Rate 21 H Blood Pressure 115/42 L Pulse Oximetry 92 93 Oxygen Delivery Nasal Cannula Oxygen Flow Rate 3 Fraction of Inspired Oxygen 01/05/25 16:00 01/05/25 17:57 01/05/25 17:59 Temperature Pulse Rate 65 66 66 Respiratory Rate Blood Pressure 108/55 L 103/58 L Pulse Oximetry Oxygen Delivery Oxygen Flow Rate Fraction of Inspired Oxygen 01/05/25 17:59 01/05/25 20:00 01/05/25 20:00 Temperature 98.8 F 98.7 F Pulse Rate 68 68 Respiratory Rate 26 H 27 H Blood Pressure 108/57 L Pulse Oximetry 92 93 93 Oxygen Delivery Nasal Cannula Oxygen Flow Rate 3 Fraction of Inspired Oxygen 01/05/25 20:00 01/05/25 20:00 01/05/25 20:14 Temperature Pulse Rate 62 68 65 Respiratory Rate 22 H Blood Pressure 108/57 L Pulse Oximetry Oxygen Delivery Oxygen Flow Rate Fraction of Inspired Oxygen 01/05/25 20:16 01/05/25 20:24 01/05/25 22:00 Temperature 98.4 F Pulse Rate 76 71 Respiratory Rate 27 H 25 H Blood Pressure 107/54 L Pulse Oximetry 94 92 Oxygen Delivery Nasal Cannula Oxygen Flow Rate 3 Fraction of Inspired Oxygen 01/05/25 22:00 01/05/25 22:00 01/05/25 22:30 Temperature Pulse Rate 71 71 Respiratory Rate Blood Pressure 107/54 L Pulse Oximetry 95 Oxygen Delivery BiPAP Oxygen Flow Rate Fraction of Inspired Oxygen 30 01/05/25 22:35 01/06/25 00:00 01/06/25 00:00 Temperature 98.3 F Pulse Rate 70 64 Respiratory Rate 23 H 20 Blood Pressure 109/53 L Pulse Oximetry 94 95 95 Oxygen Delivery BiPAP BiPAP Oxygen Flow Rate Fraction of Inspired Oxygen 30 01/06/25 00:00 01/06/25 00:00 01/06/25 02:00 Temperature 98.2 F Pulse Rate 64 71 66 Respiratory Rate 20 Blood Pressure 109/53 L 110/57 L Pulse Oximetry 95 Oxygen Delivery Oxygen Flow Rate Fraction of Inspired Oxygen 01/06/25 02:00 01/06/25 02:00 01/06/25 02:09 Temperature Pulse Rate 66 80 69 Respiratory Rate 22 H Blood Pressure 110/57 L Pulse Oximetry Oxygen Delivery Oxygen Flow Rate Fraction of Inspired Oxygen 01/06/25 02:12 01/06/25 02:20 01/06/25 04:00 Temperature Pulse Rate 70 61 Respiratory Rate 23 H 22 H Blood Pressure Pulse Oximetry 95 93 Oxygen Delivery BiPAP BiPAP Oxygen Flow Rate Fraction of Inspired Oxygen 30 01/06/25 04:00 01/06/25 04:00 01/06/25 04:00 Temperature 98.2 F Pulse Rate 62 63 58 L Respiratory Rate 20 Blood Pressure 114/58 L 114/58 L Pulse Oximetry 93 Oxygen Delivery Oxygen Flow Rate Fraction of Inspired Oxygen 01/06/25 06:00 01/06/25 06:00 01/06/25 06:00 Temperature 97.9 F Pulse Rate 59 L 59 L 59 L Respiratory Rate 21 H Blood Pressure 127/65 127/65 Pulse Oximetry 95 Oxygen Delivery Oxygen Flow Rate Fraction of Inspired Oxygen 01/06/25 07:52 01/06/25 08:00 01/06/25 08:41 Temperature 98.1 F Pulse Rate 61 70 Respiratory Rate 27 H Blood Pressure 131/61 Pulse Oximetry 92 93 Oxygen Delivery Nasal Cannula Oxygen Flow Rate 3 Fraction of Inspired Oxygen 01/06/25 08:41 01/06/25 08:55 01/06/25 09:43 Temperature Pulse Rate 66 75 68 Respiratory Rate 20 19 Blood Pressure Pulse Oximetry Oxygen Delivery Oxygen Flow Rate Fraction of Inspired Oxygen Intake/Output Intake/Output: Intake & Output 01/03/25 01/04/25 01/05/25 01/06/25 23:59 23:59 23:59 23:59 Intake Total 4014.4 655.2 1238.2 270 Output Total 1350 1350 400 Balance 4014.4 -694.8 -111.8 -130 Meds/Results Medications: Active Medications Generic Name Dose Route Start Last Admin Trade Name Freq PRN Reason Stop Dose Admin Acetylcysteine 200 mg 01/04/25 14:00 01/06/25 08:40 Acetylcysteine 20% Inhal Soln 800 Mg/4 Ml Vial INHALATION 200 mg Q6HRT DIANN Administration Albuterol/Ipratropium 3 ml 01/04/25 14:00 01/06/25 08:41 Ipratropium 0.5 Mg/Albuterol Sulfate 2.5 Mg Ampul.Neb 3 Ml INHALATION 3 ml Q6HRT DIANN Administration Dextrose 12.5 gm 01/04/25 00:51 Dextrose 50% 25 Gm/50 Ml Syringe IV PUSH PRN PRN Hypoglycemia Protocol Enoxaparin Sodium 40 mg 01/04/25 09:00 01/06/25 08:07 Enoxaparin 40 Mg/0.4 Ml Syringe SUB-Q 40 mg DAILY DIANN Administration Glucagon 1 mg 01/04/25 00:51 Glucagon For Inj 1 Mg Vial IM PRN PRN Hypoglycemia Protocol Glucose 15 gm 01/04/25 00:51 Glucose Oral Gel 15 Gm Of Glucse In 37.5 Gm Tube PO PRN PRN Hypoglycemia Protocol Doxycycline Hyclate 100 mg in 100 mls @ 100 mls/hr 01/03/25 22:00 01/06/25 08:06 Vibramycin 100 Mg/Ns 100 Ml IVPB 01/08/25 21:59 100 mls/hr Q12HR DIANN Administration Dextrose 1,000 mls @ 100 mls/hr 01/04/25 00:51 Dextrose 5% 1,000 Ml IVPB PRN PRN Hypoglycemia Protocol Cefepime HCl 2 gm in 50 mls @ 100 mls/hr 01/04/25 09:00 01/06/25 08:07 Maxipime 2 Gm/Ns 50 Ml IVPB 100 mls/hr Q12HR DIANN Administration Insulin Aspart 3 - 6 units 01/04/25 17:00 01/06/25 07:43 Insulin Aspart (*Bkc) 100 Units/Ml SUB-Q Not Given TIDWM DIANN Protocol Insulin Aspart 1 - 3 units 01/04/25 21:00 01/05/25 21:01 Insulin Aspart (*Bkc) 100 Units/Ml SUB-Q Not Given HS DIANN Protocol Levothyroxine Sodium 100 mcg/ 175 mcg 01/04/25 08:45 01/06/25 05:59 Levothyroxine Sodium 75 mcg PO 175 mcg DAILY@0630 DIANN Administration Oseltamivir Phosphate 30 mg 01/03/25 21:00 01/06/25 08:07 Oseltamivir Phosphate 30 Mg Capsule PO 01/08/25 20:59 30 mg Q12HR DIANN Administration Pantoprazole Sodium 40 mg 01/04/25 09:00 01/06/25 08:07 Pantoprazole Sodium Iv 40 Mg Vial IV PUSH 40 mg QAM DIANN Administration Perflutren Lipid Microsphere 0 ml 01/04/25 09:42 Perflutren Lipid Microspheres 1.5 Ml Vial Diluted To 10 Ml Total Volume IV PUSH 01/07/25 09:42 ONCE PRN adequate visualization Protocol Prednisone 40 mg 01/06/25 08:00 01/06/25 08:07 Prednisone 20 Mg Tablet PO 01/09/25 07:59 40 mg DAILY@0800 DIANN Administration Sodium Chloride 10 ml 01/03/25 22:00 01/06/25 05:59 Central Line Flush IV PUSH 10 ml Q8HR DIANN Administration Sodium Chloride 20 ml 01/03/25 17:40 Central Line Flush IV PUSH PRN PRN after blood draws Radiology Results: ITS Impressions Chest CTA 01/03/25 13:40 IMPRESSION: 1. Bibasilar pneumonia. Pneumonia in the right upper lobe. 2. No pulmonary embolism. Head CT 01/03/25 16:01 Impression: No acute intracranial hemorrhage or suspicious mass effect. Chest X-Ray 01/06/25 06:38 Impression: Small pleural effusions with probable mild pulmonary edema pattern. Stable support line. Labs Labs: Laboratory Results - last 24 hr 01/05/25 01/05/25 01/06/25 16:35 20:59 06:02 WBC 8.3 RBC 3.98 L Hgb 12.4 Hct 39.7 MCV 99.7 MCH 31.2 MCHC 31.2 L RDW 13.5 Plt Count 113 L MPV 10.5 H % Immature Plt Fraction 3.5 Sodium 140 Potassium 3.4 Chloride 103 Carbon Dioxide 33 H Anion Gap 4 BUN 20 H Creatinine 0.92 Estim Creat Clear Calc 48 Estimated GFR 59 Glucose 83 POC Capillary Glucose 160 H 155 H Calcium 8.3 L Magnesium 2.1 Total Bilirubin 0.5 AST 45 H ALT 26 Alkaline Phosphatase 60 Total Protein 7.0 Albumin 3.2 L TSH (Reflex) 31.100 H Free T4 0.96 Total T3 0.95 L 01/06/25 01/06/25 07:38 11:28 WBC RBC Hgb Hct MCV MCH MCHC RDW Plt Count MPV % Immature Plt Fraction Sodium Potassium Chloride Carbon Dioxide Anion Gap BUN Creatinine Estim Creat Clear Calc Estimated GFR Glucose POC Capillary Glucose 84 107 H Calcium Magnesium Total Bilirubin AST ALT Alkaline Phosphatase Total Protein Albumin TSH (Reflex) Free T4 Total T3 Quality VTE Prophylaxis VTE prophylaxis: pharmacologic ordered
--- NOTE | 2025-01-06 15:52 | PCPTNOTE ---
Pt declines to get out of bed into chair at this time. States will try tomorrow.
[2025-01-06 16:43] LABS: Glucose Point of Care 175 mg/dl (65-105)
[2025-01-06 22:02] LABS: Glucose Point of Care 148 mg/dl (65-105)
--- NOTE | 2025-01-06 23:43 | PCRCNOTE ---
Window of time for administration has passed. See next scheduled administration.
[2025-01-07] VITALS (15 sets, daily range): BP systolic 123–131; BP diastolic 58–74; PULSE 63–78; RESP 18–30; TEMP 36.5–36.8; O2SAT 93–97
[2025-01-07] MEDS: ACETYLCYSTEINE 20% INHAL SOLN 800 MG/4 ML VIAL 200 MG INHALATION ×4 (03:14→20:05)
[2025-01-07] MEDS: IPRATROPIUM 0.5 MG/ALBUTEROL SULFATE 2.5 MG AMPUL.NEB 3 ML INHALATION ×4 (03:14→20:05)
[2025-01-07] MEDS: CENTRAL LINE FLUSH 10 ML IV PUSH ×3 (05:53→20:53)
[2025-01-07] MEDS: LEVOTHYROXINE SODIUM 100 MCG, LEVOTHYROXINE SODIUM 75 MCG 175 MCG PO (05:54)
[2025-01-07 06:10] LABS: Hematocrit 38.7 % (37.0-47.0); Hemoglobin 12.2 g/dL (12.0-15.0); Immature Platelet Fraction Pct 2.7 % (0.9-11.2); Mean Corpuscular HGB Conc 31.5 g/dl (32-36); Mean Corpuscular Hemoglobin 31.3 pg (26-34); Mean Corpuscular Volume 99.2 fl (80-100); Platelet Count Result 92 k/mm3 (150-375); Red Cell Distribution Width 13.8 % (11.5-14.5); White Blood Count 5.2 K/mm3 (4.5-10.0)
[2025-01-07 06:38] LABS: Alanine Aminotransferase 37 U/L (6-35); Albumin Level 2.9 g/dL (3.5-5.1); Alkaline Phosphatase 59 U/L (38-126); Anion Gap 4 mmol/L (4-12); Aspartate Amino Transferase 55 U/L (14-36); Bilirubin,Total 0.5 mg/dL (0.2-1.3); Blood Urea Nitrogen 19 mg/dL (7-17); Calcium 8.2 mg/dL (8.4-10.2); Carbon Dioxide 33 mmol/L (22-30); Chloride 104 mmol/L (98-107); Estimated CRCL calculation 56 ml/min; Estimated Glomerular Filt Rate > 60; Glucose 76 mg/dL (65-110); Potassium 3.3 mmol/L (3.4-5.0); Sodium 141 mmol/L (137-145)
[2025-01-07 08:05] LABS: NT Pro B Type Natriuretic Pept 1980 pg/mL (19.9-100)
--- NOTE | 2025-01-07 08:19 | PM.IMPN ---
Progress Note: A&P Assessment and Plan (1) Septic shock: Code(s): A41.9 - Sepsis, unspecified organism; R65.21 - Severe sepsis with septic shock Status: Acute Assessment and Plan: Septic shock secondary to pneumonia, influenza and UTI 01/03: Blood and urine cultures negative so far OFF Levophed since 01/05/2025 with adequate blood pressures -hold IV fluids for now as patient tolerating p.o. diet (2) Acute and chronic respiratory failure: Code(s): J96.20 - Acute and chronic respiratory failure, unspecified whether with hypoxia or hypercapnia Status: Acute Assessment and Plan: Acute on chronic respiratory failure with hypercapnia and hypoxia secondary to pneumonia, influenza Patient likely has chronic hypercapnic respiratory failure secondary to obesity hypoventilation syndrome and possibly COPD as patient has history of smoking Patient was on BiPAP which was switched to AVAPS mode by Pulmonary. Patient is now on nasal cannula Continue NIPPV p.r.n. and at night. Patient is DNR/ DNI and does not want intubation and invasive mechanical ventilation Hold further crystalloids On prednisone Tamiflu and isolation for influenza Off vancomycin has nasal MRSA screen was negative Discontinued cefepime and doxycycline. Started levofloxacin for 5 days. (3) Pneumonia: Code(s): J18.9 - Pneumonia, unspecified organism Status: Acute Assessment and Plan: See above (4) Congestive heart failure: Code(s): I50.9 - Heart failure, unspecified Status: Acute Assessment and Plan: Lower extremity edema with chronic venous stasis changes. BNP 1300 Echo Summary 1. Complete two-dimensional, color flow and Doppler transthoracic echocardiogram is performed. 2. Left ventricular chamber dimension is normal. 3. Left ventricular systolic function is normal, estimated at 60-65%. 4. The left ventricular diastolic function is abnormal. 5. E/e' 10 is mildly elevated. 6. There is mild aortic valve sclerosis. 7. There is moderate tricuspid valve regurgitation. 8. No pulmonary hypertension, estimated pulmonary arterial systolic pressure is 36 mmHg. Hold further fluid (5) Diabetes: Code(s): E11.9 - Type 2 diabetes mellitus without complications Status: Acute Assessment and Plan: Tolerating diabetic diet Continue Accu-Cheks and sliding scale insulin (6) UTI (urinary tract infection): Code(s): N39.0 - Urinary tract infection, site not specified Status: Acute Assessment and Plan: See above, urine cultures have been negative so far (7) Flu: Code(s): J11.1 - Influenza due to unidentified influenza virus with other respiratory manifestations Status: Acute Assessment and Plan: Continue Tamiflu x5 days (8) Hypothyroidism: Code(s): E03.9 - Hypothyroidism, unspecified Status: Acute Assessment and Plan: Continue levothyroxine. Her TSH is very high and free T4 low. Patient is on high dose of levothyroxine. I am not sure of complaints with medication. Considering her old age I will continue with current dose at this time and not further increased Subjective Date/time seen: 01/07/25 08:19 Interval history: Interval Hx: 79-year-old female presented to ED due to shortness of breath and weakness. Patient has a history of smoking prolonged period of time 1 pack per day and patient tested positive for influenza A. Initially patient was on BiPAP due to respiratory acidosis and related wean to supplement oxygen via nasal cannula. Aggressive pulmonary toilet was initiated due to increased bone Creole secretion. Patient respiratory status has been improved. Patient is currently on acyclovir, cefepime and doxycycline. Patient will complete prednisone on 01/09. 01/07: Discontinued cefepime and doxycycline. Started levofloxacin for 5 days. Will continue Tamiflu and prednisone under the course completes.Given one dose of Lasix 40mg IV x 1 Review of Systems Review of Systems: Patient on BiPAP hypoxic when talking All systems reviewed & are unremarkable except as noted in HPI and below (HPI) ROS unobtainable: Yes unobtainable due to medical condition and unobtainable due to mental status Exam Narrative: General: Pt is alert awake and in NAD Lungs/Chest: Trachea central course BS B/L, few bibasilar crackles no wheezing Cardiac: RRR. Normal S1 S2. No murmurs Circulation: Feet are warm. She has bilateral chronic venous stasis changes Abdomen: Normal bowel sounds.. Soft. NT. ND. Extremities: No clubbing, cyanosis Warm, mild pitting edema bilaterally : Shoemaker in place Neurologic: Follows commands with all and Moves all 4 extremities PERRL AO x3 Skin: No Rash Objective Data Vital Signs Vital Signs: Vital Signs - 24 hr 01/06/25 08:41 01/06/25 08:41 01/06/25 08:55 Temperature Pulse Rate 66 75 Respiratory Rate 20 19 Blood Pressure Pulse Oximetry 93 Oxygen Delivery Nasal Cannula Oxygen Flow Rate 3 Fraction of Inspired Oxygen 01/06/25 09:43 01/06/25 12:00 01/06/25 14:38 Temperature 98.4 F Pulse Rate 68 72 82 Respiratory Rate 22 H 22 H Blood Pressure 100/50 L Pulse Oximetry 90 Oxygen Delivery Oxygen Flow Rate Fraction of Inspired Oxygen 01/06/25 14:46 01/06/25 16:00 01/06/25 20:00 Temperature 98.1 F 97.8 F Pulse Rate 84 68 67 Respiratory Rate 20 20 20 Blood Pressure 117/62 128/68 Pulse Oximetry 94 95 Oxygen Delivery Oxygen Flow Rate Fraction of Inspired Oxygen 01/06/25 20:00 01/06/25 23:25 01/07/25 00:00 Temperature 97.7 F Pulse Rate 78 66 Respiratory Rate 26 H 20 Blood Pressure 131/68 Pulse Oximetry 95 95 96 Oxygen Delivery Nasal Cannula BiPAP Oxygen Flow Rate 4 Fraction of Inspired Oxygen 01/07/25 03:14 01/07/25 03:21 01/07/25 03:22 Temperature Pulse Rate 64 69 64 Respiratory Rate 25 H 27 H 25 H Blood Pressure Pulse Oximetry 94 Oxygen Delivery BiPAP Oxygen Flow Rate Fraction of Inspired Oxygen 01/07/25 04:00 01/07/25 08:10 01/07/25 08:10 Temperature 98.2 F Pulse Rate 63 63 Respiratory Rate 20 20 Blood Pressure 130/60 Pulse Oximetry 93 95 Oxygen Delivery Nasal Cannula Oxygen Flow Rate 3 Fraction of Inspired Oxygen 32 Intake/Output Intake/Output: Intake & Output 01/04/25 01/05/25 01/06/25 01/07/25 23:59 23:59 23:59 23:59 Intake Total 655.2 1238.2 930 290 Output Total 1350 1350 900 500 Balance -694.8 -111.8 30 -210 Meds/Results Medications: Active Medications Generic Name Dose Route Start Last Admin Trade Name Freq PRN Reason Stop Dose Admin Acetylcysteine 200 mg 01/04/25 14:00 01/07/25 03:14 Acetylcysteine 20% Inhal Soln 800 Mg/4 Ml Vial INHALATION 200 mg Q6HRT DIANN Administration Albuterol/Ipratropium 3 ml 01/04/25 14:00 01/07/25 08:10 Ipratropium 0.5 Mg/Albuterol Sulfate 2.5 Mg Ampul.Neb 3 Ml INHALATION 3 ml Q6HRT DIANN Administration Dextrose 12.5 gm 01/04/25 00:51 Dextrose 50% 25 Gm/50 Ml Syringe IV PUSH PRN PRN Hypoglycemia Protocol Enoxaparin Sodium 40 mg 01/04/25 09:00 01/06/25 08:07 Enoxaparin 40 Mg/0.4 Ml Syringe SUB-Q 40 mg DAILY DIANN Administration Glucagon 1 mg 01/04/25 00:51 Glucagon For Inj 1 Mg Vial IM PRN PRN Hypoglycemia Protocol Glucose 15 gm 01/04/25 00:51 Glucose Oral Gel 15 Gm Of Glucse In 37.5 Gm Tube PO PRN PRN Hypoglycemia Protocol Doxycycline Hyclate 100 mg in 100 mls @ 100 mls/hr 01/03/25 22:00 01/06/25 21:19 Vibramycin 100 Mg/Ns 100 Ml IVPB 01/08/25 21:59 Infused Q12HR DIANN Infusion Dextrose 1,000 mls @ 100 mls/hr 01/04/25 00:51 Dextrose 5% 1,000 Ml IVPB PRN PRN Hypoglycemia Protocol Cefepime HCl 2 gm in 50 mls @ 100 mls/hr 01/04/25 09:00 01/06/25 22:26 Maxipime 2 Gm/Ns 50 Ml IVPB Infused Q12HR DIANN Infusion Insulin Aspart 3 - 6 units 01/04/25 17:00 01/06/25 16:43 Insulin Aspart (*Bkc) 100 Units/Ml SUB-Q Not Given TIDWM DIANN Protocol Insulin Aspart 1 - 3 units 01/04/25 21:00 01/06/25 21:45 Insulin Aspart (*Bkc) 100 Units/Ml SUB-Q Not Given HS DIANN Protocol Levothyroxine Sodium 100 mcg/ 175 mcg 01/04/25 08:45 01/07/25 05:54 Levothyroxine Sodium 75 mcg PO 175 mcg DAILY@0630 DIANN Administration Oseltamivir Phosphate 30 mg 01/03/25 21:00 01/06/25 20:17 Oseltamivir Phosphate 30 Mg Capsule PO 01/08/25 20:59 30 mg Q12HR DIANN Administration Pantoprazole Sodium 40 mg 01/04/25 09:00 01/06/25 08:07 Pantoprazole Sodium Iv 40 Mg Vial IV PUSH 40 mg QAM DIANN Administration Perflutren Lipid Microsphere 0 ml 01/04/25 09:42 Perflutren Lipid Microspheres 1.5 Ml Vial Diluted To 10 Ml Total Volume IV PUSH 01/07/25 09:42 ONCE PRN adequate visualization Protocol Prednisone 40 mg 01/06/25 08:00 01/06/25 08:07 Prednisone 20 Mg Tablet PO 01/09/25 07:59 40 mg DAILY@0800 DIANN Administration Sodium Chloride 10 ml 01/03/25 22:00 01/07/25 05:53 Central Line Flush IV PUSH 10 ml Q8HR DIANN Administration Sodium Chloride 20 ml 01/03/25 17:40 Central Line Flush IV PUSH PRN PRN after blood draws Radiology Results: ITS Impressions Chest CTA 01/03/25 13:40 IMPRESSION: 1. Bibasilar pneumonia. Pneumonia in the right upper lobe. 2. No pulmonary embolism. Head CT 01/03/25 16:01 Impression: No acute intracranial hemorrhage or suspicious mass effect. Chest X-Ray 01/07/25 07:13 Impression: Small left pleural effusion with mild pulmonary edema and probable element of left lower lobe atelectasis. Possible underlying COPD/chronic interstitial disease. Stable support line. Labs Labs: Laboratory Results - last 24 hr 01/06/25 01/06/25 01/06/25 06:02 11:28 16:41 WBC RBC Hgb Hct MCV MCH MCHC RDW Plt Count MPV % Immature Plt Fraction Sodium Potassium Chloride Carbon Dioxide Anion Gap BUN Creatinine Estim Creat Clear Calc Estimated GFR Glucose POC Capillary Glucose 107 H 175 H Calcium Magnesium Total Bilirubin AST ALT Alkaline Phosphatase NT-Pro-B Natriuret Pep Total Protein Albumin Total T3 0.95 L 01/06/25 01/07/25 01/07/25 21:10 05:43 05:52 WBC 5.2 RBC 3.90 L Hgb 12.2 Hct 38.7 MCV 99.2 MCH 31.3 MCHC 31.5 L RDW 13.8 Plt Count 92 L MPV 10.0 % Immature Plt Fraction 2.7 Sodium 141 Potassium 3.3 L Chloride 104 Carbon Dioxide 33 H Anion Gap 4 BUN 19 H Creatinine 0.84 Estim Creat Clear Calc 56 Estimated GFR > 60 Glucose 76 POC Capillary Glucose 148 H Calcium 8.2 L Magnesium 2.0 Total Bilirubin 0.5 AST 55 H ALT 37 H Alkaline Phosphatase 59 NT-Pro-B Natriuret Pep 1980 H Total Protein 7.0 Albumin 2.9 L Total T3 Quality VTE Prophylaxis VTE prophylaxis: pharmacologic ordered Hospitalist MIPS Advance Care Plan I have confirmed that the patient's Advanced Care Plan is present, code status is documented, or surrogate decision maker is listed in patient medical record.: Yes Medication Reconciliation I have utilized all available resources to obtain, update and review the patients current medications (includes all prescriptions, OTC, herbals, cannabis, and nutritional supplements).: Yes
[2025-01-07 08:35] LABS: Glucose Point of Care 87 mg/dl (65-105)
[2025-01-07] MEDS: levoFLOXacin 750 MG TABLET PO (09:28)
[2025-01-07] MEDS: POTASSIUM CHLORIDE 20 MEQ ER TABLET 60 MEQ PO (09:28)
[2025-01-07] MEDS: predniSONE 20 MG TABLET 40 MG PO (09:29)
[2025-01-07] MEDS: PANTOPRAZOLE SODIUM IV 40 MG VIAL IV PUSH (09:29)
[2025-01-07] MEDS: OSELTAMIVIR PHOSPHATE 30 MG CAPSULE PO ×2 (09:29→20:49)
--- NOTE | 2025-01-07 10:05 | PM.PNPUL ---
Progress Note: A&P Assessment and Plan (1) Acute exacerbation of chronic obstructive pulmonary disease (COPD): Code(s): J44.1 - Chronic obstructive pulmonary disease with (acute) exacerbation Status: Acute (2) Acute hypercapnic respiratory failure: Code(s): J96.02 - Acute respiratory failure with hypercapnia Status: Acute Assessment and Plan: This 79-year-old female presented with symptoms indicative of a respiratory infection. A chest CT scan revealed bilateral infiltrates consistent with pneumonia, and the patient tested positive for influenza A. Arterial blood gases indicated acute respiratory acidosis, with an initial base excess of -2.2, suggesting slight metabolic acidosis or reduced metabolic compensation. Despite receiving ventilatory support with BiPAP, respiratory acidosis persisted. The patient was subsequently placed on just supplemental oxygen via nasal cannula, and aggressive pulmonary toilet was initiated due to increased bronchial secretions. While on supplemental oxygen, the patient managed to maintain a lower pCO2. Overnight, she was placed back on BiPAP support. Over the last 24 hours, her respiratory status is much improved. The patient is fully awake and not experiencing shortness of breath while on supplemental oxygen, and auscultation revealed less chest congestion. It appears that the patient has underlying COPD, primarily due to chronic bronchitis, with increased bronchial secretions contributing to sustained hypercapnia despite the increased minute ventilation provided by BiPAP. Following the clearance of bronchial secretions, the patient?s respiratory acidosis improved. Physical exam today she has fewer rhonchi bilaterally. Chest x-ray essentially unchanged 01/06/25 Plan: Continue the current antibiotic regimen and continue with oral prednisone as prescribed Continue BiPAP support at night. 01/07/2025: Patient transferred out of the ICU. Patient tells me she is doing pretty good. Says that her breathing is close to her normal. Her cough is improved and only has a little bit of phlegm. She is afebrile. White blood cell count 5.2, creatinine 0.84, BN P 1980. Chest x-ray today with left subclavian, left effusion and bibasilar Interstitial infiltrates. she complains of difficulty expectorating. patient wore the hospital noninvasive ventilator with the AVAPS mode last night and said that she was able to sleep. Weight today is 111.2 kg, cumulative she has +3.0 L since admission. Currently the patient is on 3 L nasal cannula saturations 92%. Plan: Continue treatment for influenza with Tamiflu, day 4. Continue treatment for possible pneumonia status post doxycycline day 4, and cefepime day 3 and changed to levofloxacin today. Continue DuoNebs q.6, Mucomyst nebs q.6, prednisone 40, day 3 of 5 steroids. I will add guaifenesin 1200 mg p.o. b.i.d. to help with expectoration continue noninvasive ventilation with the AVAPS mode 30% at night. Patient is 3 L positive since admission with a BNP that his increased and a chest x-ray with a small left effusion and bibasilar infiltrates, now she is off Levophed and consider low-dose Lasix [address] Brown, will follow with you (3) Pneumonia: Code(s): J18.9 - Pneumonia, unspecified organism Status: Acute (4) Diabetes: Code(s): E11.9 - Type 2 diabetes mellitus without complications Status: Acute (5) Flu: Code(s): J11.1 - Influenza due to unidentified influenza virus with other respiratory manifestations Status: Acute Subjective Date/time seen: 01/07/25 10:05 Interval history: 01/07/2025: Patient transferred out of the ICU. Patient tells me she is doing pretty good. Says that her breathing is close to her normal. Her cough is improved and only has a little bit of phlegm. She is afebrile. White blood cell count 5.2, creatinine 0.84, BN P 1980. Chest x-ray today with left subclavian, left effusion and bibasilar Interstitial infiltrates. she complains of difficulty expectorating. patient wore the hospital noninvasive ventilator with the AVAPS mode last night and said that she was able to sleep. Weight today is 111.2 kg, cumulative she has +3.0 L since admission. Review of Systems Constitutional: Constitutional: Reports no additional constitutional complaints Eyes: Eyes: Reports no additional eye complaints ENT: Reports system reviewed and no additional complaints, except as documented Cardiovascular: Cardiovascular: Reports no additional cardiovascular complaints Respiratory: Respiratory: Reports no additional respiratory complaints Gastrointestinal: Gastrointestinal: Reports no additional gastrointestinal complaints Musculoskeletal: Musculoskeletal: Reports no additional musculoskeletal complaints Neurologic: Reports system reviewed and no additional complaints, except as documented Psychiatric: Psychiatric: Reports no additional psychiatric complaints Endocrine: Endocrine: Reports no additional endocrine complaints Hematologic/Lymphatic: Hematologic/Lymphatic: Reports no additional hematologic/lymphatic complaints Allergic/Immunologic: Allergic/Immunologic: Reports no additional allergic/immunologic complaints Exam Const: General: cooperative and comfortable Orientation/consciousness: oriented to person, oriented to place and oriented to time Other: obese HENMT: Head: normal to inspection Ears: hearing grossly normal bilaterally Eyes: General: appearance normal, both eyes and all related structures Neck: Neck: normal visual inspection Chest: Chest palpation & inspection: normal inspection of the chest Resp: Effort & Inspection: normal respiratory effort and able to speak in complete sentences Auscultation: crackles, no rales, no rhonchi, no wheezes and diminished lung sounds Other: Crackles at the bases and decreased breath sounds, morbid obesity. Cardio: Jugular venous distension: no JVD GI: Inspection: normal to inspection GI Palp: No abdominal tenderness Skin: General skin exam: normal color Neuro: General: oriented to person, oriented to place and oriented to time Extrem: General: normal to inspection Psych: Appearance: grossly normal Objective Data Vital Signs Vital Signs: Vital Signs - 24 hr 01/06/25 12:00 01/06/25 14:38 01/06/25 14:46 Temperature 36.9 C Pulse Rate 72 82 84 Respiratory Rate 22 H 22 H 20 Blood Pressure 100/50 L Pulse Oximetry 90 Oxygen Delivery Oxygen Flow Rate Fraction of Inspired Oxygen 01/06/25 16:00 01/06/25 20:00 01/06/25 20:00 Temperature 36.7 C 36.6 C Pulse Rate 68 67 Respiratory Rate 20 20 Blood Pressure 117/62 128/68 Pulse Oximetry 94 95 95 Oxygen Delivery Nasal Cannula Oxygen Flow Rate 4 Fraction of Inspired Oxygen 01/06/25 23:25 01/07/25 00:00 01/07/25 03:14 Temperature 36.5 C Pulse Rate 78 66 64 Respiratory Rate 26 H 20 25 H Blood Pressure 131/68 Pulse Oximetry 95 96 Oxygen Delivery BiPAP Oxygen Flow Rate Fraction of Inspired Oxygen 01/07/25 03:21 01/07/25 03:22 01/07/25 04:00 Temperature 36.8 C Pulse Rate 69 64 63 Respiratory Rate 27 H 25 H 20 Blood Pressure 130/60 Pulse Oximetry 94 93 Oxygen Delivery BiPAP Oxygen Flow Rate Fraction of Inspired Oxygen 01/07/25 08:10 01/07/25 08:10 01/07/25 08:20 Temperature Pulse Rate 63 68 Respiratory Rate 20 22 H Blood Pressure Pulse Oximetry 95 Oxygen Delivery Nasal Cannula Oxygen Flow Rate 3 Fraction of Inspired Oxygen 32 Intake/Output Intake/Output: Intake & Output 01/04/25 01/05/25 01/06/25 01/07/25 23:59 23:59 23:59 23:59 Intake Total 655.2 1238.2 930 290 Output Total 1350 1350 900 500 Balance -694.8 -111.8 30 -210 Meds/Results Medications: Active Medications Generic Name Dose Route Start Last Admin Trade Name Freq PRN Reason Stop Dose Admin Acetylcysteine 200 mg 01/04/25 14:00 01/07/25 03:14 Acetylcysteine 20% Inhal Soln 800 Mg/4 Ml Vial INHALATION 200 mg Q6HRT DIANN Administration Albuterol/Ipratropium 3 ml 01/04/25 14:00 01/07/25 08:10 Ipratropium 0.5 Mg/Albuterol Sulfate 2.5 Mg Ampul.Neb 3 Ml INHALATION 3 ml Q6HRT DIANN Administration Dextrose 12.5 gm 01/04/25 00:51 Dextrose 50% 25 Gm/50 Ml Syringe IV PUSH PRN PRN Hypoglycemia Protocol Enoxaparin Sodium 40 mg 01/04/25 09:00 01/06/25 08:07 Enoxaparin 40 Mg/0.4 Ml Syringe SUB-Q 40 mg DAILY DIANN Administration Glucagon 1 mg 01/04/25 00:51 Glucagon For Inj 1 Mg Vial IM PRN PRN Hypoglycemia Protocol Glucose 15 gm 01/04/25 00:51 Glucose Oral Gel 15 Gm Of Glucse In 37.5 Gm Tube PO PRN PRN Hypoglycemia Protocol Dextrose 1,000 mls @ 100 mls/hr 01/04/25 00:51 Dextrose 5% 1,000 Ml IVPB PRN PRN Hypoglycemia Protocol Insulin Aspart 3 - 6 units 01/04/25 17:00 01/07/25 09:24 Insulin Aspart (*Bkc) 100 Units/Ml SUB-Q Not Given TIDWM DIANN Protocol Insulin Aspart 1 - 3 units 01/04/25 21:00 01/06/25 21:45 Insulin Aspart (*Bkc) 100 Units/Ml SUB-Q Not Given HS DIANN Protocol Levofloxacin 750 mg 01/07/25 09:00 01/07/25 09:28 Levofloxacin 750 Mg Tablet PO 01/12/25 08:59 750 mg DAILY DIANN Administration Levothyroxine Sodium 100 mcg/ 175 mcg 01/04/25 08:45 01/07/25 05:54 Levothyroxine Sodium 75 mcg PO 175 mcg DAILY@0630 DIANN Administration Oseltamivir Phosphate 30 mg 01/03/25 21:00 01/07/25 09:29 Oseltamivir Phosphate 30 Mg Capsule PO 01/08/25 20:59 30 mg Q12HR DIANN Administration Pantoprazole Sodium 40 mg 01/04/25 09:00 01/07/25 09:29 Pantoprazole Sodium Iv 40 Mg Vial IV PUSH 40 mg QAM DIANN Administration Prednisone 40 mg 01/06/25 08:00 01/07/25 09:29 Prednisone 20 Mg Tablet PO 01/09/25 07:59 40 mg DAILY@0800 DIANN Administration Sodium Chloride 10 ml 01/03/25 22:00 01/07/25 05:53 Central Line Flush IV PUSH 10 ml Q8HR DIANN Administration Sodium Chloride 20 ml 01/03/25 17:40 Central Line Flush IV PUSH PRN PRN after blood draws Radiology Results: ITS Impressions Chest CTA 01/03/25 13:40 IMPRESSION: 1. Bibasilar pneumonia. Pneumonia in the right upper lobe. 2. No pulmonary embolism. Head CT 01/03/25 16:01 Impression: No acute intracranial hemorrhage or suspicious mass effect. Chest X-Ray 01/07/25 07:13 Impression: Small left pleural effusion with mild pulmonary edema and probable element of left lower lobe atelectasis. Possible underlying COPD/chronic interstitial disease. Stable support line. Labs Labs: Laboratory Results - last 24 hr 01/06/25 01/06/25 01/06/25 11:28 16:41 21:10 WBC RBC Hgb Hct MCV MCH MCHC RDW Plt Count MPV % Immature Plt Fraction Sodium Potassium Chloride Carbon Dioxide Anion Gap BUN Creatinine Estim Creat Clear Calc Estimated GFR Glucose POC Capillary Glucose 107 H 175 H 148 H Calcium Magnesium Total Bilirubin AST ALT Alkaline Phosphatase NT-Pro-B Natriuret Pep Total Protein Albumin 01/07/25 01/07/25 01/07/25 05:43 05:52 08:30 WBC 5.2 RBC 3.90 L Hgb 12.2 Hct 38.7 MCV 99.2 MCH 31.3 MCHC 31.5 L RDW 13.8 Plt Count 92 L MPV 10.0 % Immature Plt Fraction 2.7 Sodium 141 Potassium 3.3 L Chloride 104 Carbon Dioxide 33 H Anion Gap 4 BUN 19 H Creatinine 0.84 Estim Creat Clear Calc 56 Estimated GFR > 60 Glucose 76 POC Capillary Glucose 87 Calcium 8.2 L Magnesium 2.0 Total Bilirubin 0.5 AST 55 H ALT 37 H Alkaline Phosphatase 59 NT-Pro-B Natriuret Pep 1980 H Total Protein 7.0 Albumin 2.9 L
[2025-01-07 12:09] LABS: Glucose Point of Care 131 mg/dl (65-105)
[2025-01-07] MEDS: guaiFENesin 12 HR 600 MG TABCR 1200 MG PO ×2 (12:21→20:49)
[2025-01-07] MEDS: FUROSEMIDE INJ 40 MG/4 ML VIAL IV PUSH (12:28)
[2025-01-07 17:13] LABS: Glucose Point of Care 176 mg/dl (65-105)
[2025-01-07 19:41] LABS: Glucose Point of Care 184 mg/dl (65-105)
[2025-01-08] VITALS (17 sets, daily range): BP systolic 114–126; BP diastolic 49–65; PULSE 60–84; RESP 18–25; TEMP 36.1–36.7; O2SAT 92–96
[2025-01-08] MEDS: ACETYLCYSTEINE 20% INHAL SOLN 800 MG/4 ML VIAL 200 MG INHALATION ×4 (02:00→19:56)
[2025-01-08] MEDS: IPRATROPIUM 0.5 MG/ALBUTEROL SULFATE 2.5 MG AMPUL.NEB 3 ML INHALATION ×4 (02:01→19:56)
[2025-01-08] MEDS: CENTRAL LINE FLUSH 20 ML IV PUSH (05:53)
[2025-01-08] MEDS: CENTRAL LINE FLUSH 10 ML IV PUSH ×2 (05:54→15:06)
[2025-01-08] MEDS: LEVOTHYROXINE SODIUM 100 MCG, LEVOTHYROXINE SODIUM 75 MCG 175 MCG PO (05:54)
[2025-01-08 06:22] LABS: Hematocrit 39.5 % (37.0-47.0); Hemoglobin 12.6 g/dL (12.0-15.0); Immature Platelet Fraction Pct 2.9 % (0.9-11.2); Mean Corpuscular HGB Conc 31.9 g/dl (32-36); Mean Corpuscular Hemoglobin 31.5 pg (26-34); Mean Corpuscular Volume 98.8 fl (80-100); Mean Platelet Volume 10.1 fl (7.4-10.4); Platelet Count Result 95 k/mm3 (150-375); Red Cell Distribution Width 13.8 % (11.5-14.5); White Blood Count 5.5 K/mm3 (4.5-10.0)
[2025-01-08 06:27] LABS: Alanine Aminotransferase 42 U/L (6-35); Albumin Level 3.2 g/dL (3.5-5.1); Alkaline Phosphatase 59 U/L (38-126); Anion Gap 6 mmol/L (4-12); Aspartate Amino Transferase 52 U/L (14-36); Bilirubin,Total 0.7 mg/dL (0.2-1.3); Blood Urea Nitrogen 22 mg/dL (7-17); Calcium 8.3 mg/dL (8.4-10.2); Carbon Dioxide 35 mmol/L (22-30); Chloride 100 mmol/L (98-107); Estimated CRCL calculation 52 ml/min; Estimated Glomerular Filt Rate 60; Glucose 92 mg/dL (65-110); Magnesium 1.9 mg/dL (1.6-2.3); Potassium 3.4 mmol/L (3.4-5.0); Sodium 141 mmol/L (137-145)
[2025-01-08 06:34] LABS: NT Pro B Type Natriuretic Pept 1100 pg/mL (19.9-100)
[2025-01-08 08:19] LABS: Glucose Point of Care 80 mg/dl (65-105)
--- NOTE | 2025-01-08 08:21 | PM.IMPN ---
Progress Note: A&P Assessment and Plan (1) Septic shock: Code(s): A41.9 - Sepsis, unspecified organism; R65.21 - Severe sepsis with septic shock Status: Acute Assessment and Plan: Septic shock secondary to pneumonia, influenza and UTI 01/03: Blood and urine cultures negative so far OFF Levophed since 01/05/2025 with adequate blood pressures -hold IV fluids for now as patient tolerating p.o. diet (2) Acute and chronic respiratory failure: Code(s): J96.20 - Acute and chronic respiratory failure, unspecified whether with hypoxia or hypercapnia Status: Acute Assessment and Plan: Acute on chronic respiratory failure with hypercapnia and hypoxia secondary to pneumonia, influenza Patient likely has chronic hypercapnic respiratory failure secondary to obesity hypoventilation syndrome and possibly COPD as patient has history of smoking Patient was on BiPAP which was switched to AVAPS mode by Pulmonary. Patient is now on nasal cannula Continue NIPPV p.r.n. and at night. Patient is DNR/ DNI and does not want intubation and invasive mechanical ventilation Hold further crystalloids On prednisone Tamiflu and isolation for influenza Off vancomycin has nasal MRSA screen was negative Discontinued cefepime and doxycycline. Started levofloxacin for 5 days. 0 3/15: 1 dose of Lasix 40 mg IV 1 time 0 16 :ordered 1 dose of Lasix 20 mg IV for for today and tomorrow Patient will undergo overnight oximetry on room air and ABG in the morning Possible discharge tomorrow (3) Pneumonia: Code(s): J18.9 - Pneumonia, unspecified organism Status: Acute Assessment and Plan: See above (4) Congestive heart failure: Code(s): I50.9 - Heart failure, unspecified Status: Acute Assessment and Plan: Lower extremity edema with chronic venous stasis changes. BNP 1300 Echo Summary 1. Complete two-dimensional, color flow and Doppler transthoracic echocardiogram is performed. 2. Left ventricular chamber dimension is normal. 3. Left ventricular systolic function is normal, estimated at 60-65%. 4. The left ventricular diastolic function is abnormal. 5. E/e' 10 is mildly elevated. 6. There is mild aortic valve sclerosis. 7. There is moderate tricuspid valve regurgitation. 8. No pulmonary hypertension, estimated pulmonary arterial systolic pressure is 36 mmHg. Hold further fluid (5) Diabetes: Code(s): E11.9 - Type 2 diabetes mellitus without complications Status: Acute Assessment and Plan: Tolerating diabetic diet Continue Accu-Cheks and sliding scale insulin (6) UTI (urinary tract infection): Code(s): N39.0 - Urinary tract infection, site not specified Status: Acute Assessment and Plan: See above, urine cultures have been negative so far (7) Flu: Code(s): J11.1 - Influenza due to unidentified influenza virus with other respiratory manifestations Status: Acute Assessment and Plan: Continue Tamiflu x5 days (8) Hypothyroidism: Code(s): E03.9 - Hypothyroidism, unspecified Status: Acute Assessment and Plan: Continue levothyroxine. Her TSH is very high and free T4 low. Patient is on high dose of levothyroxine. I am not sure of complaints with medication. Considering her old age I will continue with current dose at this time and not further increased Subjective Date/time seen: 01/08/25 08:21 Interval history: Interval Hx: 79-year-old female presented to ED due to shortness of breath and weakness. Patient has a history of smoking prolonged period of time 1 pack per day and patient tested positive for influenza A. Initially patient was on BiPAP due to respiratory acidosis and related wean to supplement oxygen via nasal cannula. Aggressive pulmonary toilet was initiated due to increased bone Creole secretion. Patient respiratory status has been improved. Patient is currently on acyclovir, cefepime and doxycycline. Patient will complete prednisone on 01/09. 01/08: Discussed with Dr. Minor. Patient will undergo overnight oximetry on room air and ABG morning and possible discharge tomorrow. Yesterday levofloxacin for 5 days. Will continue Tamiflu and prednisone under the course completes. Patient is able to tolerate Lasix 40 IV 1 time dose yesterday. Patient will be given Lasix 20 mg today and tomorrow. Review of Systems Review of Systems: Patient on BiPAP hypoxic when talking All systems reviewed & are unremarkable except as noted in HPI and below (HPI) ROS unobtainable: Yes unobtainable due to medical condition and unobtainable due to mental status Exam Narrative: General: Pt is alert awake and in NAD Lungs/Chest: Trachea central course BS B/L, few bibasilar crackles no wheezing Cardiac: RRR. Normal S1 S2. No murmurs Circulation: Feet are warm. She has bilateral chronic venous stasis changes Abdomen: Normal bowel sounds.. Soft. NT. ND. Extremities: No clubbing, cyanosis Warm, mild pitting edema bilaterally : Shoemaker in place Neurologic: Follows commands with all and Moves all 4 extremities PERRL AO x3 Skin: No Rash Objective Data Vital Signs Vital Signs: Vital Signs - 24 hr 01/07/25 09:51 01/07/25 11:10 01/07/25 14:21 Temperature Pulse Rate Respiratory Rate Blood Pressure Pulse Oximetry 93 Oxygen Delivery Nasal Cannula Nasal Cannula Nasal Cannula Oxygen Flow Rate 3 3 3 Fraction of Inspired Oxygen 32 01/07/25 14:21 01/07/25 14:32 01/07/25 16:00 Temperature 98.2 F Pulse Rate 74 70 78 Respiratory Rate 20 20 19 Blood Pressure 123/58 L Pulse Oximetry 97 Oxygen Delivery Oxygen Flow Rate Fraction of Inspired Oxygen 01/07/25 20:00 01/07/25 20:00 01/07/25 20:05 Temperature 98.0 F Pulse Rate 69 75 Respiratory Rate 18 22 H Blood Pressure 126/74 Pulse Oximetry 95 93 93 Oxygen Delivery Nasal Cannula Nasal Cannula Oxygen Flow Rate 3 3 Fraction of Inspired Oxygen 32 01/07/25 20:05 01/07/25 20:20 01/07/25 22:50 Temperature Pulse Rate 75 78 74 Respiratory Rate 22 H 20 30 H Blood Pressure Pulse Oximetry 93 Oxygen Delivery BiPAP Oxygen Flow Rate Fraction of Inspired Oxygen 01/08/25 00:00 01/08/25 02:00 01/08/25 02:00 Temperature 97.5 F L Pulse Rate 73 72 Respiratory Rate 18 25 H Blood Pressure 126/62 Pulse Oximetry 96 94 94 Oxygen Delivery BiPAP BiPAP Oxygen Flow Rate Fraction of Inspired Oxygen 32 01/08/25 02:00 01/08/25 02:15 01/08/25 04:00 Temperature 98.1 F Pulse Rate 72 74 60 Respiratory Rate 25 H 20 18 Blood Pressure 115/49 L Pulse Oximetry 92 Oxygen Delivery Oxygen Flow Rate Fraction of Inspired Oxygen 01/08/25 06:09 01/08/25 07:52 01/08/25 07:52 Temperature 98.1 F Pulse Rate 60 72 Respiratory Rate 18 20 Blood Pressure 115/49 L Pulse Oximetry 92 93 Oxygen Delivery Nasal Cannula Oxygen Flow Rate 3 Fraction of Inspired Oxygen 01/08/25 08:07 Temperature Pulse Rate 76 Respiratory Rate 20 Blood Pressure Pulse Oximetry Oxygen Delivery Oxygen Flow Rate Fraction of Inspired Oxygen Intake/Output Intake/Output: Intake & Output 01/05/25 01/06/25 01/07/25 01/08/25 23:59 23:59 23:59 23:59 Intake Total 1238.2 930 890 Output Total 8315 088 6695 1300 Balance -111.8 30 -1910 -1300 Meds/Results Medications: Active Medications Generic Name Dose Route Start Last Admin Trade Name Freq PRN Reason Stop Dose Admin Acetylcysteine 200 mg 01/04/25 14:00 01/08/25 07:52 Acetylcysteine 20% Inhal Soln 800 Mg/4 Ml Vial INHALATION 200 mg Q6HRT DIANN Administration Albuterol/Ipratropium 3 ml 01/04/25 14:00 01/08/25 07:52 Ipratropium 0.5 Mg/Albuterol Sulfate 2.5 Mg Ampul.Neb 3 Ml INHALATION 3 ml Q6HRT DIANN Administration Dextrose 12.5 gm 01/04/25 00:51 Dextrose 50% 25 Gm/50 Ml Syringe IV PUSH PRN PRN Hypoglycemia Protocol Enoxaparin Sodium 40 mg 01/04/25 09:00 01/06/25 08:07 Enoxaparin 40 Mg/0.4 Ml Syringe SUB-Q 40 mg DAILY DIANN Administration Glucagon 1 mg 01/04/25 00:51 Glucagon For Inj 1 Mg Vial IM PRN PRN Hypoglycemia Protocol Glucose 15 gm 01/04/25 00:51 Glucose Oral Gel 15 Gm Of Glucse In 37.5 Gm Tube PO PRN PRN Hypoglycemia Protocol Guaifenesin 1,200 mg 01/07/25 10:20 01/07/25 20:49 Guaifenesin 12 Hr 600 Mg Tabcr PO 1,200 mg Q12HR DIANN Administration Dextrose 1,000 mls @ 100 mls/hr 01/04/25 00:51 Dextrose 5% 1,000 Ml IVPB PRN PRN Hypoglycemia Protocol Insulin Aspart 3 - 6 units 01/04/25 17:00 01/07/25 17:15 Insulin Aspart (*Bkc) 100 Units/Ml SUB-Q Not Given TIDWM DIANN Protocol Insulin Aspart 1 - 3 units 01/04/25 21:00 01/07/25 20:48 Insulin Aspart (*Bkc) 100 Units/Ml SUB-Q Not Given HS DIANN Protocol Levofloxacin 750 mg 01/07/25 09:00 01/07/25 09:28 Levofloxacin 750 Mg Tablet PO 01/12/25 08:59 750 mg DAILY DIANN Administration Levothyroxine Sodium 100 mcg/ 175 mcg 01/04/25 08:45 01/08/25 05:54 Levothyroxine Sodium 75 mcg PO 175 mcg DAILY@0630 DIANN Administration Oseltamivir Phosphate 30 mg 01/03/25 21:00 01/07/25 20:49 Oseltamivir Phosphate 30 Mg Capsule PO 01/08/25 20:59 30 mg Q12HR DIANN Administration Pantoprazole Sodium 40 mg 01/04/25 09:00 01/07/25 09:29 Pantoprazole Sodium Iv 40 Mg Vial IV PUSH 40 mg QAM DIANN Administration Prednisone 40 mg 01/06/25 08:00 01/07/25 09:29 Prednisone 20 Mg Tablet PO 01/09/25 07:59 40 mg DAILY@0800 DIANN Administration Sodium Chloride 10 ml 01/03/25 22:00 01/08/25 05:54 Central Line Flush IV PUSH 10 ml Q8HR DIANN Administration Sodium Chloride 20 ml 01/03/25 17:40 01/08/25 05:53 Central Line Flush IV PUSH 20 ml PRN PRN Administration after blood draws Radiology Results: ITS Impressions Chest CTA 01/03/25 13:40 IMPRESSION: 1. Bibasilar pneumonia. Pneumonia in the right upper lobe. 2. No pulmonary embolism. Head CT 01/03/25 16:01 Impression: No acute intracranial hemorrhage or suspicious mass effect. Chest X-Ray 01/08/25 06:49 IMPRESSION: Bilateral basal pneumonia more on the left side with pleural effusion. Bilateral interstitial thickening suggestive of pneumonitis versus pulmonary edema. Labs Labs: Laboratory Results - last 24 hr 01/07/25 01/07/25 01/07/25 08:30 12:05 17:03 WBC RBC Hgb Hct MCV MCH MCHC RDW Plt Count MPV % Immature Plt Fraction Sodium Potassium Chloride Carbon Dioxide Anion Gap BUN Creatinine Estim Creat Clear Calc Estimated GFR Glucose POC Capillary Glucose 87 131 H 176 H Calcium Magnesium Total Bilirubin AST ALT Alkaline Phosphatase NT-Pro-B Natriuret Pep Total Protein Albumin 01/07/25 01/08/25 01/08/25 19:37 05:52 08:06 WBC 5.5 RBC 4.00 L Hgb 12.6 Hct 39.5 MCV 98.8 MCH 31.5 MCHC 31.9 L RDW 13.8 Plt Count 95 L MPV 10.1 % Immature Plt Fraction 2.9 Sodium 141 Potassium 3.4 Chloride 100 Carbon Dioxide 35 H Anion Gap 6 BUN 22 H Creatinine 0.90 Estim Creat Clear Calc 52 Estimated GFR 60 Glucose 92 POC Capillary Glucose 184 H 80 Calcium 8.3 L Magnesium 1.9 Total Bilirubin 0.7 AST 52 H ALT 42 H Alkaline Phosphatase 59 NT-Pro-B Natriuret Pep 1100 H Total Protein 7.0 Albumin 3.2 L Quality VTE Prophylaxis VTE prophylaxis: pharmacologic ordered Hospitalist [facility] Advance Care Plan I have confirmed that the patient's Advanced Care Plan is present, code status is documented, or surrogate decision maker is listed in patient medical record.: Yes Medication Reconciliation I have utilized all available resources to obtain, update and review the patients current medications (includes all prescriptions, OTC, herbals, cannabis, and nutritional supplements).: Yes
[2025-01-08] MEDS: OSELTAMIVIR PHOSPHATE 30 MG CAPSULE PO (09:04)
[2025-01-08] MEDS: levoFLOXacin 750 MG TABLET PO (09:04)
[2025-01-08] MEDS: PANTOPRAZOLE SODIUM IV 40 MG VIAL IV PUSH (09:04)
[2025-01-08] MEDS: guaiFENesin 12 HR 600 MG TABCR 1200 MG PO ×2 (09:04→22:01)
[2025-01-08] MEDS: predniSONE 20 MG TABLET 40 MG PO (09:04)
--- NOTE | 2025-01-08 11:43 | PM.PNPUL ---
Progress Note: A&P Assessment and Plan (1) Acute hypercapnic respiratory failure: Code(s): J96.02 - Acute respiratory failure with hypercapnia Status: Acute Assessment and Plan: This 79-year-old female presented with symptoms indicative of a respiratory infection. A chest CT scan revealed bilateral infiltrates consistent with pneumonia, and the patient tested positive for influenza A. Arterial blood gases indicated acute respiratory acidosis, with an initial base excess of -2.2, suggesting slight metabolic acidosis or reduced metabolic compensation. Despite receiving ventilatory support with BiPAP, respiratory acidosis persisted. The patient was subsequently placed on just supplemental oxygen via nasal cannula, and aggressive pulmonary toilet was initiated due to increased bronchial secretions. While on supplemental oxygen, the patient managed to maintain a lower pCO2. Overnight, she was placed back on BiPAP support. Over the last 24 hours, her respiratory status is much improved. The patient is fully awake and not experiencing shortness of breath while on supplemental oxygen, and auscultation revealed less chest congestion. It appears that the patient has underlying COPD, primarily due to chronic bronchitis, with increased bronchial secretions contributing to sustained hypercapnia despite the increased minute ventilation provided by BiPAP. Following the clearance of bronchial secretions, the patient?s respiratory acidosis improved. Physical exam today she has fewer rhonchi bilaterally. Chest x-ray essentially unchanged 01/06/25 Plan: Continue the current antibiotic regimen and continue with oral prednisone as prescribed Continue BiPAP support at night. 01/07/2025: Patient transferred out of the ICU. Patient tells me she is doing pretty good. Says that her breathing is close to her normal. Her cough is improved and only has a little bit of phlegm. She is afebrile. White blood cell count 5.2, creatinine 0.84, BN P 1980. Chest x-ray today with left subclavian, left effusion and bibasilar Interstitial infiltrates. she complains of difficulty expectorating. patient wore the hospital noninvasive ventilator with the AVAPS mode last night and said that she was able to sleep. Weight today is 111.2 kg, cumulative she has +3.0 L since admission. Currently the patient is on 3 L nasal cannula saturations 92%. Plan: Continue treatment for influenza with Tamiflu, day 4. Continue treatment for possible pneumonia status post doxycycline day 4, and cefepime day 3 and changed to levofloxacin today. Continue DuoNebs q.6, Mucomyst nebs q.6, prednisone 40, day 3 of 5 steroids. I will add guaifenesin 1200 mg p.o. b.i.d. to help with expectoration continue noninvasive ventilation with the AVAPS mode 30% at night. Patient is 3 L positive since admission with a BNP that his increased and a chest x-ray with a small left effusion and bibasilar infiltrates, now she is off Levophed and consider low-dose Lasix 20 IV. 01/08/2025: Patient tells me she is breathing normal. Her cough is back to her normal with a little bit of phlegm. She has no hemoptysis. She is afebrile. A blood cell count 5.5, creatinine 0.9. BNP is 1100, improved from 1979 on 01/07/2025. Patient was given 40 of Lasix IV yesterday and diuresed 1.9 L. Since admission she is positive 0.3 L. Her weight today is 108 kg with an admission weight of 102.7 kg. Chest x-ray today shows bibasilar interstitial infiltrates with minimally improved aeration of the left lower lobe. Patient wore her hospital AVAPS with full face mask and slept with the machine last night on 32%. When I enter the room the patient was on 2 L nasal cannula saturations 98%. I decreased her to room air and her saturations were 92%. Plan: Overall the patient is improved in asking me if she can go home today. Patient should stay in the hospital today so we can reassess her oxygen at night and her ventilation off of noninvasive ventilation. Continue treatment for influenza with Tamiflu, day 5. Continue treatment for possible pneumonia status post doxycycline day 4, and cefepime day 3 and changed to levofloxacin 01/07. Continue DuoNebs q.6, Mucomyst nebs q.6, prednisone 40, day 4 of 5 steroids. Continue guaifenesin 1200 mg p.o. b.i.d. to help with expectoration Patient diuresed with 40 of Lasix IV yesterday. Her oxygen is improved today. Recommended additional diuresis as per hospitalist team. I will discontinue patient's noninvasive ventilation tonight and perform an overnight oximetry on room air and an ABG on room air in the morning to assess her oxygenation and ventilation. Discussed with Dr. Brown, will follow with you (2) Pneumonia: Code(s): J18.9 - Pneumonia, unspecified organism Status: Acute (3) Diabetes: Code(s): E11.9 - Type 2 diabetes mellitus without complications Status: Acute (4) Flu: Code(s): J11.1 - Influenza due to unidentified influenza virus with other respiratory manifestations Status: Acute Subjective Date/time seen: 01/08/25 11:43 Interval history: 01/07/2025: Patient transferred out of the ICU. Patient tells me she is doing pretty good. Says that her breathing is close to her normal. Her cough is improved and only has a little bit of phlegm. She is afebrile. White blood cell count 5.2, creatinine 0.84, BN P 1979. Chest x-ray today with left subclavian, left effusion and bibasilar Interstitial infiltrates. she complains of difficulty expectorating. patient wore the [facility] noninvasive ventilator with the AVAPS mode last night and said that she was able to sleep. Weight today is 111.2 kg, cumulative she has +3.0 L since admission. 01/08/2025: Patient tells me she is breathing normal. Her cough is back to her normal with a little bit of phlegm. She has no hemoptysis. She is afebrile. A blood cell count 5.5, creatinine 0.9. BNP is 1100, improved from 1979 on 01/07/2025. Patient was given 40 of Lasix IV yesterday and diuresed 1.9 L. Since admission she is positive 0.3 L. Her weight today is 108 kg with an admission weight of 102.7 kg. Chest x-ray today shows bibasilar interstitial infiltrates with minimally improved aeration of the left lower lobe. Patient wore her hospital AVAPS with full face mask and slept with the machine last night on 32%. When I enter the room the patient was on 2 L nasal cannula saturations 98%. I decreased her to room air and her saturations were 92%. Review of Systems Review of Systems: All systems reviewed & are unremarkable except as noted in HPI and below (HPI and below) Constitutional: Constitutional: Reports no additional constitutional complaints Eyes: Eyes: Reports no additional eye complaints ENT: Reports system reviewed and no additional complaints, except as documented Cardiovascular: Cardiovascular: Reports no additional cardiovascular complaints Respiratory: Respiratory: Reports no additional respiratory complaints Gastrointestinal: Gastrointestinal: Reports no additional gastrointestinal complaints Musculoskeletal: Musculoskeletal: Reports no additional musculoskeletal complaints Neurologic: Reports system reviewed and no additional complaints, except as documented Psychiatric: Psychiatric: Reports no additional psychiatric complaints Endocrine: Endocrine: Reports no additional endocrine complaints Hematologic/Lymphatic: Hematologic/Lymphatic: Reports no additional hematologic/lymphatic complaints Allergic/Immunologic: Allergic/Immunologic: Reports no additional allergic/immunologic complaints Exam Const: General: cooperative and comfortable Orientation/consciousness: oriented to person, oriented to place and oriented to time Other: obese HENMT: Head: normal to inspection Ears: hearing grossly normal bilaterally Eyes: General: appearance normal, both eyes and all related structures Neck: Neck: normal visual inspection Chest: Chest palpation & inspection: normal inspection of the chest Resp: Effort & Inspection: normal respiratory effort and able to speak in complete sentences Auscultation: crackles, no rales, no rhonchi, no wheezes and diminished lung sounds Other: Crackles at the bases and decreased breath sounds, morbid obesity. Cardio: Jugular venous distension: no JVD GI: Inspection: normal to inspection Skin: General skin exam: normal color Neuro: General: oriented to person, oriented to place and oriented to time Extrem: General: normal to inspection Psych: Appearance: grossly normal Objective Data Vital Signs Vital Signs: Vital Signs - 24 hr 01/07/25 14:21 01/07/25 14:21 01/07/25 14:32 Temperature Pulse Rate 74 70 Respiratory Rate 20 20 Blood Pressure Pulse Oximetry 93 Oxygen Delivery Nasal Cannula Oxygen Flow Rate 3 Fraction of Inspired Oxygen 32 01/07/25 16:00 01/07/25 20:00 01/07/25 20:00 Temperature 36.8 C 36.7 C Pulse Rate 78 69 Respiratory Rate 19 18 Blood Pressure 123/58 L 126/74 Pulse Oximetry 97 95 93 Oxygen Delivery Nasal Cannula Oxygen Flow Rate 3 Fraction of Inspired Oxygen 01/07/25 20:05 01/07/25 20:05 01/07/25 20:20 Temperature Pulse Rate 75 75 78 Respiratory Rate 22 H 22 H 20 Blood Pressure Pulse Oximetry 93 Oxygen Delivery Nasal Cannula Oxygen Flow Rate 3 Fraction of Inspired Oxygen 32 01/07/25 22:50 01/08/25 00:00 01/08/25 02:00 Temperature 36.4 C L Pulse Rate 74 73 72 Respiratory Rate 30 H 18 25 H Blood Pressure 126/62 Pulse Oximetry 93 96 94 Oxygen Delivery BiPAP BiPAP Oxygen Flow Rate Fraction of Inspired Oxygen 01/08/25 02:00 01/08/25 02:00 01/08/25 02:15 Temperature Pulse Rate 72 74 Respiratory Rate 25 H 20 Blood Pressure Pulse Oximetry 94 Oxygen Delivery BiPAP Oxygen Flow Rate Fraction of Inspired Oxygen 32 01/08/25 04:00 01/08/25 06:09 01/08/25 07:52 Temperature 36.7 C 36.7 C Pulse Rate 60 60 Respiratory Rate 18 18 Blood Pressure 115/49 L 115/49 L Pulse Oximetry 92 92 93 Oxygen Delivery Nasal Cannula Oxygen Flow Rate 3 Fraction of Inspired Oxygen 01/08/25 07:52 01/08/25 08:00 01/08/25 08:07 Temperature Pulse Rate 72 76 Respiratory Rate 20 20 Blood Pressure Pulse Oximetry 96 Oxygen Delivery Nasal Cannula Oxygen Flow Rate 2 Fraction of Inspired Oxygen Intake/Output Intake/Output: Intake & Output 01/05/25 01/06/25 01/07/25 01/08/25 23:59 23:59 23:59 23:59 Intake Total 1238.2 930 890 360 Output Total 4425 684 7497 1300 Balance -111.8 61 -6236 -271 Meds/Results Medications: Active Medications Generic Name Dose Route Start Last Admin Trade Name Freq PRN Reason Stop Dose Admin Acetylcysteine 200 mg 01/04/25 14:00 01/08/25 07:52 Acetylcysteine 20% Inhal Soln 800 Mg/4 Ml Vial INHALATION 200 mg Q6HRT DIANN Administration Albuterol/Ipratropium 3 ml 01/04/25 14:00 01/08/25 07:52 Ipratropium 0.5 Mg/Albuterol Sulfate 2.5 Mg Ampul.Neb 3 Ml INHALATION 3 ml Q6HRT DIANN Administration Dextrose 12.5 gm 01/04/25 00:51 Dextrose 50% 25 Gm/50 Ml Syringe IV PUSH PRN PRN Hypoglycemia Protocol Enoxaparin Sodium 40 mg 01/04/25 09:00 01/06/25 08:07 Enoxaparin 40 Mg/0.4 Ml Syringe SUB-Q 40 mg DAILY DIANN Administration Glucagon 1 mg 01/04/25 00:51 Glucagon For Inj 1 Mg Vial IM PRN PRN Hypoglycemia Protocol Glucose 15 gm 01/04/25 00:51 Glucose Oral Gel 15 Gm Of Glucse In 37.5 Gm Tube PO PRN PRN Hypoglycemia Protocol Guaifenesin 1,200 mg 01/07/25 10:20 01/08/25 09:04 Guaifenesin 12 Hr 600 Mg Tabcr PO 1,200 mg Q12HR DIANN Administration Dextrose 1,000 mls @ 100 mls/hr 01/04/25 00:51 Dextrose 5% 1,000 Ml IVPB PRN PRN Hypoglycemia Protocol Insulin Aspart 3 - 6 units 01/04/25 17:00 01/08/25 09:02 Insulin Aspart (*Bkc) 100 Units/Ml SUB-Q Not Given TIDWM DIANN Protocol Insulin Aspart 1 - 3 units 01/04/25 21:00 01/07/25 20:48 Insulin Aspart (*Bkc) 100 Units/Ml SUB-Q Not Given HS DIANN Protocol Levofloxacin 750 mg 01/07/25 09:00 01/08/25 09:04 Levofloxacin 750 Mg Tablet PO 01/12/25 08:59 750 mg DAILY DIANN Administration Levothyroxine Sodium 100 mcg/ 175 mcg 01/04/25 08:45 01/08/25 05:54 Levothyroxine Sodium 75 mcg PO 175 mcg DAILY@0630 DIANN Administration Oseltamivir Phosphate 30 mg 01/03/25 21:00 01/08/25 09:04 Oseltamivir Phosphate 30 Mg Capsule PO 01/08/25 20:59 30 mg Q12HR DIANN Administration Pantoprazole Sodium 40 mg 01/04/25 09:00 01/08/25 09:04 Pantoprazole Sodium Iv 40 Mg Vial IV PUSH 40 mg QAM DIANN Administration Prednisone 40 mg 01/06/25 08:00 01/08/25 09:04 Prednisone 20 Mg Tablet PO 01/09/25 07:59 40 mg DAILY@0800 DIANN Administration Sodium Chloride 10 ml 01/03/25 22:00 01/08/25 05:54 Central Line Flush IV PUSH 10 ml Q8HR DIANN Administration Sodium Chloride 20 ml 01/03/25 17:40 01/08/25 05:53 Central Line Flush IV PUSH 20 ml PRN PRN Administration after blood draws Radiology Results: ITS Impressions Chest CTA 01/03/25 13:40 IMPRESSION: 1. Bibasilar pneumonia. Pneumonia in the right upper lobe. 2. No pulmonary embolism. Head CT 01/03/25 16:01 Impression: No acute intracranial hemorrhage or suspicious mass effect. Chest X-Ray 01/08/25 06:49 IMPRESSION: Bilateral basal pneumonia more on the left side with pleural effusion. Bilateral interstitial thickening suggestive of pneumonitis versus pulmonary edema. Labs Labs: Laboratory Results - last 24 hr 01/07/25 01/07/25 01/07/25 12:05 17:03 19:37 WBC RBC Hgb Hct MCV MCH MCHC RDW Plt Count MPV % Immature Plt Fraction Sodium Potassium Chloride Carbon Dioxide Anion Gap BUN Creatinine Estim Creat Clear Calc Estimated GFR Glucose POC Capillary Glucose 131 H 176 H 184 H Calcium Magnesium Total Bilirubin AST ALT Alkaline Phosphatase NT-Pro-B Natriuret Pep Total Protein Albumin 01/08/25 01/08/25 05:52 08:06 WBC 5.5 RBC 4.00 L Hgb 12.6 Hct 39.5 MCV 98.8 MCH 31.5 MCHC 31.9 L RDW 13.8 Plt Count 95 L MPV 10.1 % Immature Plt Fraction 2.9 Sodium 141 Potassium 3.4 Chloride 100 Carbon Dioxide 35 H Anion Gap 6 BUN 22 H Creatinine 0.90 Estim Creat Clear Calc 52 Estimated GFR 60 Glucose 92 POC Capillary Glucose 80 Calcium 8.3 L Magnesium 1.9 Total Bilirubin 0.7 AST 52 H ALT 42 H Alkaline Phosphatase 59 NT-Pro-B Natriuret Pep 1100 H Total Protein 7.0 Albumin 3.2 L
[2025-01-08 12:19] LABS: Glucose Point of Care 129 mg/dl (65-105)
[2025-01-08] MEDS: FUROSEMIDE INJ 40 MG/4 ML VIAL 20 MG IV PUSH (15:06)
[2025-01-08 17:07] LABS: Glucose Point of Care 211 mg/dl (65-105)
[2025-01-08] MEDS: INSULIN ASPART (*BKC) 100 UNITS/ML SUB-Q (17:07)
[2025-01-09] MEDS: CENTRAL LINE FLUSH 10 ML IV PUSH ×2 (00:46→07:37)
[2025-01-09 01:34] LABS: Glucose Point of Care 172 mg/dl (65-105)
[2025-01-09 02:35] VITALS: BP 122/60; PULSE 77; RESP 16; TEMP 36.1; O2SAT 93
[2025-01-09] MEDS: ACETYLCYSTEINE 20% INHAL SOLN 800 MG/4 ML VIAL 200 MG INHALATION (03:00)
[2025-01-09] MEDS: IPRATROPIUM 0.5 MG/ALBUTEROL SULFATE 2.5 MG AMPUL.NEB 3 ML INHALATION (03:01)
--- NOTE | 2025-01-09 03:03 | PCRCNOTE ---
2am treatment not give, patient is having an apnea link test
[2025-01-09 05:12] LABS: Alveolar/Arterial O2 Gradient 50.2 mmHg; Base Excess ABG 8.9 mEq/l (+/-2.0); Fractional Inspired Oxygen 21 %; Oxygen Content ABG 17.7 %vol (16.0-22.0); Oxygen Saturation ABG 91.6 % (95.0-100.0); Oxyhemoglobin 89.6 % THb (90.0-100.0); PCO2 ABG 38.1 mmHg (35.0-45.0); PO2 ABG 53.9 mmHg (80.0-100.0); PO2 FiO2 Ratio Arterial Blood 2.57 %; Total Hemoglobin 14.1 g/dL (12.0-18.0)
[2025-01-09 05:20] LABS: Device ROOM AIR; Modified Allen's Test Pass; Site Drawn RIGHT RADIAL; pH ABG 7.542 (7.350-7.450)
[2025-01-09] MEDS: LEVOTHYROXINE SODIUM 100 MCG, LEVOTHYROXINE SODIUM 75 MCG 175 MCG PO (05:23)
[2025-01-09 06:05] LABS: Hematocrit 41.4 % (37.0-47.0); Hemoglobin 13.1 g/dL (12.0-15.0); Immature Platelet Fraction Pct 3.6 % (0.9-11.2); Mean Corpuscular HGB Conc 31.6 g/dl (32-36); Mean Corpuscular Volume 98.1 fl (80-100); Mean Platelet Volume 10.2 fl (7.4-10.4); Platelet Count Result 117 k/mm3 (150-375); Red Blood Count 4.22 M/mm3 (4.2-5.4); Red Cell Distribution Width 13.8 % (11.5-14.5); White Blood Count 7.4 K/mm3 (4.5-10.0)
[2025-01-09 06:12] VITALS: BP 113/45; PULSE 74; RESP 16; TEMP 36.4; O2SAT 94
[2025-01-09 07:29] LABS: Alanine Aminotransferase 53 U/L (6-35); Albumin Level 3.5 g/dL (3.5-5.1); Alkaline Phosphatase 65 U/L (38-126); Anion Gap 4 mmol/L (4-12); Aspartate Amino Transferase 53 U/L (14-36); Bilirubin,Total 0.7 mg/dL (0.2-1.3); Blood Urea Nitrogen 24 mg/dL (7-17); Calcium 8.6 mg/dL (8.4-10.2); Carbon Dioxide 36 mmol/L (22-30); Chloride 100 mmol/L (98-107); Estimated CRCL calculation 48 ml/min; Estimated Glomerular Filt Rate 55; Glucose 91 mg/dL (65-110); Magnesium 1.7 mg/dL (1.6-2.3); Potassium 3.1 mmol/L (3.4-5.0); Sodium 140 mmol/L (137-145)
[2025-01-09 08:00] VITALS: BP 138/68; PULSE 75; RESP 20; TEMP 36.6; O2SAT 96
[2025-01-09 08:20] LABS: Glucose Point of Care 92 mg/dl (65-105)
[2025-01-09] MEDS: levoFLOXacin 750 MG TABLET PO (08:35)
[2025-01-09] MEDS: FUROSEMIDE INJ 40 MG/4 ML VIAL 20 MG IV PUSH (08:36)
[2025-01-09] MEDS: guaiFENesin 12 HR 600 MG TABCR 1200 MG PO (08:36)
[2025-01-09] MEDS: PANTOPRAZOLE SODIUM IV 40 MG VIAL IV PUSH (08:36)
--- NOTE | 2025-01-09 08:58 | PM.PNPUL ---
Progress Note: A&P Assessment and Plan (1) Acute exacerbation of chronic obstructive pulmonary disease (COPD): Code(s): J44.1 - Chronic obstructive pulmonary disease with (acute) exacerbation Status: Acute (2) Acute hypercapnic respiratory failure: Code(s): J96.02 - Acute respiratory failure with hypercapnia Status: Acute Assessment and Plan: A 79-year-old female presented with symptoms indicative of a respiratory infection. A chest CT scan revealed bilateral infiltrates consistent with pneumonia, and she tested positive for influenza A. Arterial blood gases indicated acute respiratory acidosis, with an initial base excess of -2.2, suggesting slight metabolic acidosis or reduced metabolic compensation. Despite receiving ventilatory support with BiPAP, respiratory acidosis persisted. The patient appears to have underlying COPD, primarily due to chronic bronchitis, with increased bronchial secretions contributing to sustained hypercapnia despite the increased minute ventilation provided by BiPAP. Following the clearance of bronchial secretions, her respiratory acidosis improved. Over the last 48 hours, the patient's respiratory status has been stable, and she is currently on room air. She is off steroids. An ApneaLink study conducted last night showed oxyhemoglobin desaturation on room air. A chest X-ray performed today showed some discoid atelectasis on the right and significant clearing of the left lower lobe pneumonia. Plan: The patient is cleared for discharge from a respiratory standpoint. She will continue with nebulized short-acting bronchodilators three times daily as needed, Anoro inhaler one puff daily, levofloxacin at current dose for 3 more days, and oxygen at 2 liters per minute at night. A home oxygen evaluation should be conducted to determine the need for supplemental oxygen during activities. We recommend re-evaluating the patient in the outpatient pulmonary clinic in approximately 3-4 weeks. Her clinical history suggests underlying COPD due to chronic bronchitis and possibly sleep-disordered breathing. She will need pulmonary function testing and possibly a sleep study. At this point, I will sign off. Please call with any questions. (3) Pneumonia: Code(s): J18.9 - Pneumonia, unspecified organism Status: Acute (4) Diabetes: Code(s): E11.9 - Type 2 diabetes mellitus without complications Status: Acute (5) Flu: Code(s): J11.1 - Influenza due to unidentified influenza virus with other respiratory manifestations Status: Acute Subjective Date/time seen: 01/09/25 08:58 Interval history: Patient doing better. Currently in a med surg loya, on room air. Chest congestion significantly improved. She underwent ApneaLink study last night. Review of Systems Review of Systems: All systems reviewed & are unremarkable except as noted in HPI and below (HPI and below) Exam Narrative: GENERAL APPEARANCE: Well developed, well nourished, alert in mild respiratory distress while on room air SKIN: Inspection of the skin reveals no rashes, ulcerations or petechiae. HEENT: Sclerae anicteric and conjunctivae pink and moist. Extraocular movements were intact and pupils were equal. NECK: Supple. There was no thyroid enlargement, and no tenderness, or masses were felt. LUNGS: Clear breath sounds upper chest anteriorly CARDIAC: There was a regular rate and rhythm without any murmurs. ABDOMEN: Soft and nontender with normal bowel sounds. There was no organomegaly. LYMPH NODES: No lymphadenopathy was appreciated in the neck. EXTREMITIES: No cyanosis, clubbing. Mild edema and chronic stasis dermatitis changes lower extremities NEUROLOGIC: Patient moving all extremities, awake following commands. Objective Data Vital Signs Vital Signs: Vital Signs - 24 hr 01/08/25 12:00 01/08/25 15:11 01/08/25 15:23 Temperature 36.5 C Pulse Rate 78 72 76 Respiratory Rate 19 20 20 Blood Pressure 124/60 Pulse Oximetry 94 Oxygen Delivery Fraction of Inspired Oxygen 01/08/25 16:00 01/08/25 19:56 01/08/25 20:00 Temperature 36.6 C Pulse Rate 73 73 Respiratory Rate 18 18 Blood Pressure 115/63 Pulse Oximetry 94 Oxygen Delivery Room Air Fraction of Inspired Oxygen 01/08/25 20:04 01/08/25 20:10 01/08/25 22:25 Temperature 36.1 C L Pulse Rate 73 84 Respiratory Rate 18 18 Blood Pressure 114/65 Pulse Oximetry 94 96 Oxygen Delivery Room Air Fraction of Inspired Oxygen 21 01/08/25 22:30 01/09/25 02:35 01/09/25 06:12 Temperature 36.1 C L 36.4 C Pulse Rate 77 74 Respiratory Rate 16 16 Blood Pressure 122/60 113/45 L Pulse Oximetry 94 93 94 Oxygen Delivery Room Air Fraction of Inspired Oxygen 21 Intake/Output Intake/Output: Intake & Output 01/06/25 01/07/25 01/08/25 01/09/25 23:59 23:59 23:59 23:59 Intake Total 872 695 5810 300 Output Total 900 2800 2550 1000 Balance 25 -6746 -2032 -681 Meds/Results Medications: Active Medications Generic Name Dose Route Start Last Admin Trade Name Freq PRN Reason Stop Dose Admin Acetylcysteine 200 mg 01/04/25 14:00 01/09/25 03:00 Acetylcysteine 20% Inhal Soln 800 Mg/4 Ml Vial INHALATION 200 mg Q6HRT DIANN Administration Albuterol/Ipratropium 3 ml 01/04/25 14:00 01/09/25 03:01 Ipratropium 0.5 Mg/Albuterol Sulfate 2.5 Mg Ampul.Neb 3 Ml INHALATION 3 ml Q6HRT DIANN Administration Dextrose 12.5 gm 01/04/25 00:51 Dextrose 50% 25 Gm/50 Ml Syringe IV PUSH PRN PRN Hypoglycemia Protocol Enoxaparin Sodium 40 mg 01/04/25 09:00 01/06/25 08:07 Enoxaparin 40 Mg/0.4 Ml Syringe SUB-Q 40 mg DAILY DIANN Administration Furosemide 20 mg 01/08/25 13:20 01/09/25 08:36 Furosemide Inj 40 Mg/4 Ml Vial IV PUSH 01/09/25 23:00 20 mg DAILY DIANN Administration Glucagon 1 mg 01/04/25 00:51 Glucagon For Inj 1 Mg Vial IM PRN PRN Hypoglycemia Protocol Glucose 15 gm 01/04/25 00:51 Glucose Oral Gel 15 Gm Of Glucse In 37.5 Gm Tube PO PRN PRN Hypoglycemia Protocol Guaifenesin 1,200 mg 01/07/25 10:20 01/09/25 08:36 Guaifenesin 12 Hr 600 Mg Tabcr PO 1,200 mg Q12HR DIANN Administration Dextrose 1,000 mls @ 100 mls/hr 01/04/25 00:51 Dextrose 5% 1,000 Ml IVPB PRN PRN Hypoglycemia Protocol Insulin Aspart 3 - 6 units 01/04/25 17:00 01/09/25 08:27 Insulin Aspart (*Bkc) 100 Units/Ml SUB-Q Not Given TIDWM DIANN Protocol Insulin Aspart 1 - 3 units 01/04/25 21:00 01/08/25 22:28 Insulin Aspart (*Bkc) 100 Units/Ml SUB-Q Not Given HS DIANN Protocol Levofloxacin 750 mg 01/07/25 09:00 01/09/25 08:35 Levofloxacin 750 Mg Tablet PO 01/12/25 08:59 750 mg DAILY DIANN Administration Levothyroxine Sodium 100 mcg/ 175 mcg 01/04/25 08:45 01/09/25 05:23 Levothyroxine Sodium 75 mcg PO 175 mcg DAILY@0630 DIANN Administration Pantoprazole Sodium 40 mg 01/04/25 09:00 01/09/25 08:36 Pantoprazole Sodium Iv 40 Mg Vial IV PUSH 40 mg QAM DIANN Administration Sodium Chloride 10 ml 01/03/25 22:00 01/09/25 07:37 Central Line Flush IV PUSH 10 ml Q8HR DIANN Administration Sodium Chloride 20 ml 01/03/25 17:40 01/08/25 05:53 Central Line Flush IV PUSH 20 ml PRN PRN Administration after blood draws Radiology Results: ITS Impressions Chest CTA 01/03/25 13:40 IMPRESSION: 1. Bibasilar pneumonia. Pneumonia in the right upper lobe. 2. No pulmonary embolism. Head CT 01/03/25 16:01 Impression: No acute intracranial hemorrhage or suspicious mass effect. Chest X-Ray 01/09/25 06:38 Impression: Discoid bibasilar atelectasis or scarring. Stable support line. Labs Labs: Laboratory Results - last 24 hr 01/08/25 01/08/25 01/08/25 12:08 17:01 22:20 WBC RBC Hgb Hct MCV MCH MCHC RDW Plt Count MPV % Immature Plt Fraction Puncture Site ABG pH ABG pCO2 ABG pO2 ABG PO2/FiO2 Ratio ABG HCO3 ABG O2 Saturation ABG O2 Content ABG Base Excess A-a Gradient Oxyhemoglobin Total Hemoglobin O2 Delivery Device O2 Liters/Min FiO2 Sodium Potassium Chloride Carbon Dioxide Anion Gap BUN Creatinine Estim Creat Clear Calc Estimated GFR Glucose POC Capillary Glucose 129 H 211 H 172 H Calcium Magnesium Total Bilirubin AST ALT Alkaline Phosphatase Total Protein Albumin 01/09/25 01/09/25 01/09/25 05:05 05:40 08:03 WBC 7.4 RBC 4.22 Hgb 13.1 Hct 41.4 MCV 98.1 MCH 31.0 MCHC 31.6 L RDW 13.8 Plt Count 117 L MPV 10.2 % Immature Plt Fraction 3.6 Puncture Site Right radial ABG pH 7.542 H* ABG pCO2 38.1 ABG pO2 53.9 L ABG PO2/FiO2 Ratio 2.57 ABG HCO3 32.0 H ABG O2 Saturation 91.6 L ABG O2 Content 17.7 ABG Base Excess 8.9 A-a Gradient 50.2 Oxyhemoglobin 89.6 L Total Hemoglobin 14.1 O2 Delivery Device Room air O2 Liters/Min Not Reportable FiO2 21 Sodium 140 Potassium 3.1 L Chloride 100 Carbon Dioxide 36 H Anion Gap 4 BUN 24 H Creatinine 0.97 Estim Creat Clear Calc 48 Estimated GFR 55 L Glucose 91 POC Capillary Glucose 92 Calcium 8.6 Magnesium 1.7 Total Bilirubin 0.7 AST 53 H ALT 53 H Alkaline Phosphatase 65 Total Protein 8.0 Albumin 3.5
--- NOTE | 2025-01-09 09:57 | PCRCNOTE ---
Window of time for administration has passed. See next scheduled administration.
[2025-01-09 12:00] VITALS: BP 135/60; PULSE 87; RESP 20; TEMP 36.7; O2SAT 95
[2025-01-09 12:06] LABS: Glucose Point of Care 121 mg/dl (65-105)
[2025-01-09 14:07] VITALS: PULSE 75; O2SAT 94
--- NOTE | 2025-01-09 14:08 | HOMEO2EVAL ---
Evaluation was performed at [facility] Home Oxygen Evaluation RC: Home Oxygen (O2) Evaluation Start: 01/09/25 13:46 Freq: ONCE Status: Active Protocol: RPE Activity Type Activity Date Activity User E-sign Co-sign Detail Recorded Client Recorded Date Recorded By Document 01/09/25 14:07 KRM [id number] 01/09/25 14:07 KRM 01/09/25 14:07 Home O2 Evaluation [Oxygen] -Test Phase Resting -Oxygen Delivery Room Air [Pulse Oximetry] -Pulse Oximetry (90-100 %) 94 [Pulse Rate] -Pulse Rate (60-100 beats/min) 75 [Comments] -Home Oxygen Evaluation Comments PT. NON AMBULATORY. DID NOT WALK PT . [Charges] -Evaluation Charges O2 Evaluation by Pulmonary
--- NOTE | 2025-01-09 14:18 | PCRCNOTE ---
Home O2 eval done, no O2 needed with resting or exertion, pt does need 2 liters home O2 nocturnally. This has been set up with [facility] and will deliver to pt home once d/c
--- NOTE | 2025-01-09 15:09 | PM.DS ---
DS: Admitting Diagnosis Discharge Date 01/09/2025 Admitting Diagnosis Weakness and shortness of breath DS: Discharge Diagnosis Discharge Diagnosis (1) Septic shock: Code(s): A41.9 - Sepsis, unspecified organism; R65.21 - Severe sepsis with septic shock Status: Acute Assessment and Plan: Septic shock secondary to pneumonia, influenza and UTI 01/03: Blood and urine cultures negative so far OFF Levophed since 01/05/2025 with adequate blood pressures -hold IV fluids for now as patient tolerating p.o. diet ok to dc off abx (2) Acute and chronic respiratory failure: Code(s): J96.20 - Acute and chronic respiratory failure, unspecified whether with hypoxia or hypercapnia Status: Acute Assessment and Plan: Acute on chronic respiratory failure with hypercapnia and hypoxia secondary to pneumonia, influenza Patient likely has chronic hypercapnic respiratory failure secondary to obesity hypoventilation syndrome and possibly COPD as patient has history of smoking Patient was on BiPAP which was switched to AVAPS mode by Pulmonary. Patient is now on nasal cannula Continue NIPPV p.r.n. and at night. Patient is DNR/ DNI and does not want intubation and invasive mechanical ventilation Hold further crystalloids On prednisone Tamiflu and isolation for influenza Off vancomycin has nasal MRSA screen was negative Discontinued cefepime and doxycycline. Started levofloxacin for 5 days. 0 15: 1 dose of Lasix 40 mg IV 1 time 0 16 :ordered 1 dose of Lasix 20 mg IV for for today and tomorrow Patient will undergo overnight oximetry on room air and ABG in the morning Possible discharge today (3) Pneumonia: Code(s): J18.9 - Pneumonia, unspecified organism Status: Acute Assessment and Plan: resolved sp iv abx in hospital (4) Congestive heart failure: Code(s): I50.9 - Heart failure, unspecified Status: Acute Assessment and Plan: Lower extremity edema with chronic venous stasis changes. BNP 1300 Echo Summary 1. Complete two-dimensional, color flow and Doppler transthoracic echocardiogram is performed. 2. Left ventricular chamber dimension is normal. 3. Left ventricular systolic function is normal, estimated at 60-65%. 4. The left ventricular diastolic function is abnormal. 5. E/e' 10 is mildly elevated. 6. There is mild aortic valve sclerosis. 7. There is moderate tricuspid valve regurgitation. 8. No pulmonary hypertension, estimated pulmonary arterial systolic pressure is 36 mmHg. sp iv lasix dc on 2 liters of oxygen overnight (5) Diabetes: Code(s): E11.9 - Type 2 diabetes mellitus without complications Status: Acute Assessment and Plan: Tolerating diabetic diet Continue Accu-Cheks and sliding scale insulin (6) UTI (urinary tract infection): Code(s): N39.0 - Urinary tract infection, site not specified Status: Acute Assessment and Plan: See above, urine cultures have been negative so far (7) Flu: Code(s): J11.1 - Influenza due to unidentified influenza virus with other respiratory manifestations Status: Acute Assessment and Plan: Continue Tamiflu x5 days (8) Hypothyroidism: Code(s): E03.9 - Hypothyroidism, unspecified Status: Acute Assessment and Plan: Continue levothyroxine. Her TSH is very high and free T4 low. Patient is on high dose of levothyroxine. I am not sure of complaints with medication. Considering her old age I will continue with current dose at this time and not further increased DS: Summary Hospital Course Hospital Course: 79-year-old female presented to ED due to shortness of breath and weakness. Patient has a history of smoking prolonged period of time 1 pack per day and patient tested positive for influenza A. Initially patient was on BiPAP due to respiratory acidosis and related wean to supplement oxygen via nasal cannula. Aggressive pulmonary toilet was initiated due to increased bone Creole secretion. Patient respiratory status has been improved. Patient is currently on acyclovir, cefepime and doxycycline. Patient will complete prednisone on 01/09. 01/08: Discussed with Dr. Minor. Patient will undergo overnight oximetry on room air and ABG morning and possible discharge tomorrow. Yesterday levofloxacin for 5 days. Will continue Tamiflu and prednisone under the course completes. Patient is able to tolerate Lasix 40 IV 1 time dose yesterday. Patient will be given Lasix 20 mg today and tomorrow. 01/09 can dc off abx, tamiflu and steroids completed course in hospital. Time Spent with Patient Time attestation: Total time spent providing and/or coordinating discharge services:55 minutes on day of dc Exam Narrative: General: Pt is alert awake and in NAD Lungs/Chest: Trachea central course BS B/L, few bibasilar crackles no wheezing Cardiac: RRR. Normal S1 S2. No murmurs Circulation: Feet are warm. She has bilateral chronic venous stasis changes Abdomen: Normal bowel sounds.. Soft. NT. ND. Extremities: No clubbing, cyanosis Warm, mild pitting edema bilaterally : Shoemaker in place Neurologic: Follows commands with all and Moves all 4 extremities PERRL AO x3 Skin: No Rash DS: Data Data Completed and Pending Labs on day of discharge: Labs from last 24 hours 01/09/25 01/09/25 01/09/25 12:00 08:03 05:40 WBC 7.4 RBC 4.22 Hgb 13.1 Hct 41.4 MCV 98.1 MCH 31.0 MCHC 31.6 L RDW 13.8 Plt Count 117 L MPV 10.2 % Immature Plt Fraction 3.6 Puncture Site ABG pH ABG pCO2 ABG pO2 ABG PO2/FiO2 Ratio ABG HCO3 ABG O2 Saturation ABG O2 Content ABG Base Excess A-a Gradient Oxyhemoglobin Total Hemoglobin O2 Delivery Device O2 Liters/Min FiO2 Sodium 140 Potassium 3.1 L Chloride 100 Carbon Dioxide 36 H Anion Gap 4 BUN 24 H Creatinine 0.97 Estim Creat Clear Calc 48 Estimated GFR 55 L Glucose 91 POC Capillary Glucose 121 H 92 Calcium 8.6 Magnesium 1.7 Total Bilirubin 0.7 AST 53 H ALT 53 H Alkaline Phosphatase 65 Total Protein 8.0 Albumin 3.5 01/09/25 01/08/25 01/08/25 05:05 22:20 17:01 WBC RBC Hgb Hct MCV MCH MCHC RDW Plt Count MPV % Immature Plt Fraction Puncture Site Right radial ABG pH 7.542 H* ABG pCO2 38.1 ABG pO2 53.9 L ABG PO2/FiO2 Ratio 2.57 ABG HCO3 32.0 H ABG O2 Saturation 91.6 L ABG O2 Content 17.7 ABG Base Excess 8.9 A-a Gradient 50.2 Oxyhemoglobin 89.6 L Total Hemoglobin 14.1 O2 Delivery Device Room air O2 Liters/Min Not Reportable FiO2 21 Sodium Potassium Chloride Carbon Dioxide Anion Gap BUN Creatinine Estim Creat Clear Calc Estimated GFR Glucose POC Capillary Glucose 172 H 211 H Calcium Magnesium Total Bilirubin AST ALT Alkaline Phosphatase Total Protein Albumin Discharge Plan Discharge Attending physician on discharge: Jud Martini Consulting providers: Kennedy Disla; Regan Vásquez Discharging Clinician: Jud Martini Anticipated Discharge Date/Time: 01/09/25 15:07 Patient Disposition: Home, Self-Care Activity: as tolerated Diet: as tolerated Discharge Instructions: dc on 2 liters of oxygen at night Patient Instructions: Antibiotic Form Patient Language: [place] Stand Alone Forms: General Discharge Information Follow-up/Referrals: Mars Valdez MD [Primary Care Provider] - Regan Vásquez MD [Physician] - (in 3-4 weeks time ) Discharge Medications: New guaifenesin [Mucus Relief ER] 600 mg Tablet Extended Release 12hr 1,200 mg PO Q12HR Qty: 30 0RF Continued losartan 100 mg tablet 50 mg PO DAILY levothyroxine 112 mcg tablet 175 mcg PO DAILY hydrochlorothiazide 12.5 mg tablet 12.5 mg PO DAILY (DME) nebulizer and compressor Device See Rx Instructions .Route Qty: 1 0RF Rx Instructions: As directed glimepiride 1 mg tablet 1 mg PO DAILY Date of admission: 01/03/25 16:09 Primary Care Provider: Mars Valdez Admitting Provider: Meri Arreola Attending physician on admission: Meri Arreola Condition: Stable
--- NOTE | 2025-01-09 15:55 | PCRCNOTE ---
Window of time for administration has passed. See next scheduled administration.
[2025-01-09 16:00] VITALS: BP 130/64; PULSE 80; RESP 20; TEMP 36.8; O2SAT 90
== END 2025-01-09 17:15 | disposition home or self-care (01) | DRG 871 ==
LOC: ANHED 16:09 → ANHICU 01-04 12:14 → ANH2MED 01-09 15:08 → ANHICU 01-10 08:56
PROVIDERS: General Practice; Internal Medicine; Internal Medicine Pulmonary Disease; Admitting Provider Hospitalist; Emergency Provider Emergency Medicine; PCP Family Medicine; Visit Provider Family Medicine
DX: A41.9 Sepsis, unspecified organism (principal); J11.00 Influenza due to unidentified influenza virus with unspecified type of pneumonia; J18.9 Pneumonia, unspecified organism; R65.21 Severe sepsis with septic shock; J96.22 Acute and chronic respiratory failure with hypercapnia; J96.21 Acute and chronic respiratory failure with hypoxia; J44.1 Chronic obstructive pulmonary disease with (acute) exacerbation; J44.0 Chronic obstructive pulmonary disease with (acute) lower respiratory infection; N39.0 Urinary tract infection, site not specified; E03.9 Hypothyroidism, unspecified; E11.9 Type 2 diabetes mellitus without complications; E66.9 Obesity, unspecified; F17.210 Nicotine dependence, cigarettes, uncomplicated; I11.0 Hypertensive heart disease with heart failure; I50.9 Heart failure, unspecified; J44.9 Chronic obstructive pulmonary disease, unspecified; Z79.84 Long term (current) use of oral hypoglycemic drugs; Z28.21 Immunization not carried out because of patient refusal; Z88.0 Allergy status to penicillin; Z66 Do not resuscitate; Z20.822 Contact with and (suspected) exposure to COVID-19
CPT/HCPCS: 36415; 36556; 36600; 70450; 71045; 71275; 80048; 80053; 81001; 82375; 82805; 82948; 83050; 83735; 83880; 84100; 84439; 84443; 84480; 85018; 85027; 85055; 87040; 87086; 87641; 93306; 94002; 94003; 94618; 94640; 94667; 94668; 94762; 96365; 96367; 96375; 97110; 97161; 97166; 97530; 99291; A9270; C1751; J0613; J0692; J1650; J1815; J1940; J2470; J2919; J3370; J3475; J7030; J7120; J7512; Q9967

== ENCOUNTER 2025-02-03 10:26 | Outpatient (CLI) | payer MEDICARE, SELFPAY ==
--- NOTE | ~2025-02-03 | XR_ITS ---
Clinical Indication: Pneumonia PA and lateral views of the chest: Comparison: 01/09/2025 Findings: Probable mild central congestive change and possible minimal bibasilar pulmonary edema. Ethan cified left basilar granuloma present. No pleural effusion evident. Cardiomediastinal silhouette is within normal limits. Bones and soft tissues are unremarkable. Impression: Central congestive change and probable minimal bibasilar pulmonary edema. Reviewed, dictated and finalized at location M. Impression: Central congestive change and probable minimal bibasilar pulmonary edema.
[2025-02-03 10:46] LABS: Basophils Absolute Auto 0.03 K/mm3 (0.00-0.10); Basophils Percent Auto 0.3 % (0.0-1.0); Eosinophils Absolute Auto 0.15 K/mm3 (0.02-0.50); Eosinophils Percent Auto 1.7 % (1.0-6.0); Hematocrit 40.7 % (35.0-42.0); Hemoglobin 12.6 g/dL (11.7-13.8); Immature Granulocyte Absolute 0.04 K/mm3 (0.00-0.00); Immature Granulocyte Percent A 0.5 % (0.0-0.0); Lymphocytes Absolute Auto 1.06 K/mm3 (1.10-4.50); Mean Corpuscular Hemoglobin 31.3 pg (27.0-31.0); Mean Platelet Volume 9.7 fl (9.2-11.8); Monocytes Absolute Auto 0.89 K/mm3 (0.10-0.90); Monocytes Percent Auto 10.1 % (2.0-11.0); Neutrophils Absolute Auto 6.66 K/mm3 (1.70-7.20); Neutrophils Percent Auto 75.4 % (50.0-70.0); Platelet Count Result 204 K/mm3 (150-420); Red Blood Count 4.03 M/mm3 (4.20-5.40); Red Cell Distribution Width 12.4 % (11.6-14.4); White Blood Count 8.8 K/mm3 (4.8-10.8)
[2025-02-03 11:31] LABS: Alanine Aminotransferase 17 U/L (14-59); Alkaline Phosphatase 84 U/L (46-116); Anion Gap 5 mmol/L (4-12); Aspartate Amino Transferase 16 U/L (15-37); Bilirubin,Total 0.6 mg/dL (0.00-1.00); Blood Urea Nitrogen 16 mg/dL (7-18); Carbon Dioxide 35 mmol/L (21-32); Chloride 102 mmol/L (98-108); Estimated Glomerular Filt Rate 55; Glucose 112 mg/dL (70-99); Osmolality Calculated 296 mOsm/kg (285-295); Potassium 3.3 mmol/L (3.5-5.1); Sodium 142 mmol/L (136-145); Thyroid Stimulating Hormone 1.41 uIU/mL (0.36-3.74); Total Protein 7.8 g/dL (6.4-8.2)
[2025-02-03 11:53] LABS: Hemoglobin A1C 5.7 % (<5.7)
== END 2025-02-03 10:27 | disposition home or self-care (01) ==
LOC: CHSLAB 10:28
PROVIDERS: PCP Family Medicine; Visit Provider Family Medicine
DX: I10 Essential (primary) hypertension (principal); E11.9 Type 2 diabetes mellitus without complications; E03.8 Other specified hypothyroidism
CPT/HCPCS: 36415; 71046; 80053; 83036; 84443; 85025